=== PATIENT | female | born 1985 | race Caucasian/White ===

== ENCOUNTER 2017-03-22 15:00 | Emergency (ER) | payer OTHER ==
[2017-03-22] MEDS ORDERED: NORMAL SALINE 1000 ML 1,000 ML IV ONE (16:33)
--- NOTE | 2017-03-22 16:34 | ER Document Report ---
ED Medical Screen (RME) - General Chief Complaint: Abdominal Pain Stated Complaint: LOW ABDOMINAL AND BACK PAIN Time Seen by Provider: 03/22/17 16:32 Notes: Patient presents with right upper and lower quadrant abdominal pain. She states the right upper quadrant pain is more severe. This is been going on for approximate 2 days. She also had nausea and vomiting. She states she has had a hysterectomy. She also states she has a history of gastroparesis, biliary dyskinesia, and ulcerative colitis. She also states she has a history of tachycardia and hypotension and usually has medications for this but has not had them for 1 month. She states she has been out of all of her medications for 1 month due to some social issues. She states she does have dysuria. She also has had blood in her urine. TRAVEL OUTSIDE OF THE [place] IN LAST 30 DAYS: No - Related Data Allergies/Adverse Reactions: ibuprofen [Ibuprofen] Allergy (Severe, Verified 06/04/16 14:54) throat swells, itching blotches aspirin Allergy (Verified 03/22/17 15:16) Past Medical History - Past Medical History Cardiac Medical History: Denies: Hx Heart Attack, Hx Hypertension Pulmonary Medical History: Denies: Hx Asthma, Hx Bronchitis, Hx COPD, Hx Pneumonia Neurological Medical History: Reports: Hx Seizures. Denies: Hx Cerebrovascular Accident Renal/ Medical History: Reports: Hx Ovarian Cysts. Denies: Hx Peritoneal Dialysis Malignancy Medical History: Reports: Hx Cervical Cancer GI Medical History: Reports: Hx Gastritis, Hx Hiatal Hernia, Hx Irritable Bowel , Hx Ulcerative Colitis, Hx Colonoscopy, Hx Endoscopy Musculoskeltal Medical History: Reports Hx Arthritis, Reports Hx Fibromyalgia, Reports Hx Musculoskeletal Trauma Psychiatric Medical History: Reports: Hx Anxiety, Hx Bipolar Disorder, Hx Depression Traumatic Medical History: Reports: Hx Fractures Past Surgical History: Reports: Hx Hysterectomy. Denies: Hx Pacemaker - Immunizations Hx Diphtheria, Pertussis, Tetanus Vaccination: Yes Physical Exam - Vital signs Vitals: Temp Pulse Resp BP Pulse Ox 98.6 F 127 H 18 101/66 98 03/22/17 15:14 03/22/17 15:14 03/22/17 15:14 03/22/17 15:14 03/22/17 15:14 Course - Vital Signs Vital signs: Temp Pulse Resp BP Pulse Ox 98.6 F 127 H 18 101/66 98 03/22/17 15:14 03/22/17 15:14 03/22/17 15:14 03/22/17 15:14 03/22/17 15:14
[2017-03-22 17:20] LABS: ABSOLUTE BASOPHILS # (AUTO) 0.1 10^3/uL (0.0-0.2); ABSOLUTE EOSINOPHILS # (AUTO) 0.2 10^3/uL (0.0-0.6); ABSOLUTE LYMPHOCYTES (AUTO) 2.6 10^3/uL (0.5-4.7); ABSOLUTE MONOCYTES (AUTO) 0.7 10^3/uL (0.1-1.4); ABSOLUTE NEUT (AUTO) 5.5 10^3/uL (1.7-8.2); BASOPHILS % (AUTO) 0.9 % (0-2); EOSINOPHILS % (AUTO) 1.8 % (0-6); HEMATOCRIT 44.4 % (36.0-47.0); HEMOGLOBIN 15.1 g/dL (12.0-15.5); HGB HCT DIFFERENCE 0.9; LYMPHOCYTES % (AUTO) 28.6 % (13-45); MEAN CORPUSCULAR VOLUME 94 fl (80-97); RED BLOOD COUNT 4.72 10^6/uL (3.72-5.28); RED CELL DISTRIBUTION WIDTH 12.4 % (11.5-14.0); SEGMENTED NEUTROPHILS % (AUTO) 60.7 % (42-78)
[2017-03-22 17:22] LABS: APPEARANCE,URINE CLOUDY; BILIRUBIN,URINE NEGATIVE (NEGATIVE); GLUCOSE, URINE NEGATIVE (NEGATIVE); KETONES,URINE NEGATIVE (NEGATIVE); LEUKOCYTE ESTERASE,URINE LARGE (NEGATIVE); NITRITE,URINE POSITIVE (NEGATIVE); PROTEIN,URINE 100 mg/dL (NEGATIVE); URINE SPECIFIC GRAVITY 1.018; UROBILINOGEN,URINE NEGATIVE mg/dL (<2.0)
[2017-03-22] MEDS ORDERED: CEFTRIAXONE 1 GM/D5W RTU 1 GM/50 ML RTUPB IV ONE ×2 (17:30→17:39)
[2017-03-22 17:33] LABS: ALANINE AMINOTRANSFERASE 30 U/L (9-52); ALBUMIN 4.3 g/dL (3.5-5.0); ALKALINE PHOSPHATASE 74 U/L (38-126); ANION GAP 15 (5-19); ASPARTATE AMINO TRANSFERASE 18 U/L (14-36); BILIRUBIN,DIRECT 0.4 mg/dL (0.0-0.4); BILIRUBIN,TOTAL 0.5 mg/dL (0.2-1.3); BLOOD UREA NITROGEN 12 mg/dL (7-20); CARBON DIOXIDE 26 mmol/L (22-30); CHLORIDE 100 mmol/L (98-107); CREATININE RESULT 0.74 mg/dL (0.52-1.25); GLUCOSE 80 mg/dL (75-110); LIPASE 44.3 U/L (23-300); POTASSIUM 4.1 mmol/L (3.6-5.0); SODIUM 140.7 mmol/L (137-145); TOTAL PROTEIN 7.6 g/dL (6.3-8.2)
[2017-03-22] MEDS ORDERED: CIPROFLOXACIN HCL 500 MG TABLET PO ONE (17:36)
[2017-03-22] MEDS ORDERED: TRAMADOL HCL 50 MG TABLET PO ONE (17:37)
--- NOTE | 2017-03-22 17:39 | ER Document Report ---
ED General - General Chief Complaint: Abdominal Pain Stated Complaint: LOW ABDOMINAL AND BACK PAIN Time Seen by Provider: 03/22/17 16:32 TRAVEL OUTSIDE OF THE [place] IN LAST 30 DAYS: No - Related Data Allergies/Adverse Reactions: ibuprofen [Ibuprofen] Allergy (Severe, Verified 06/04/16 14:54) throat swells, itching blotches aspirin Allergy (Verified 03/22/17 15:16) Past Medical History - Social History Smoking Status: Current Every Day Smoker Chew tobacco use (# tins/day): No Frequency of alcohol use: Occasional Drug Abuse: Marijuana Family History: Arthritis, CAD, COPD, CVA, DM, Hyperlipidemia, Hypertension, Malignancy, Other - Past Medical History Cardiac Medical History: Denies: Hx Heart Attack, Hx Hypertension Pulmonary Medical History: Denies: Hx Asthma, Hx Bronchitis, Hx COPD, Hx Pneumonia Neurological Medical History: Reports: Hx Seizures. Denies: Hx Cerebrovascular Accident Renal/ Medical History: Reports: Hx Ovarian Cysts. Denies: Hx Peritoneal Dialysis Malignancy Medical History: Reports: Hx Cervical Cancer GI Medical History: Reports: Hx Gastritis, Hx Hiatal Hernia, Hx Irritable Bowel , Hx Ulcerative Colitis, Hx Colonoscopy, Hx Endoscopy Musculoskeltal Medical History: Reports Hx Arthritis, Reports Hx Fibromyalgia, Reports Hx Musculoskeletal Trauma Psychiatric Medical History: Reports: Hx Anxiety, Hx Bipolar Disorder, Hx Depression Traumatic Medical History: Reports: Hx Fractures Past Surgical History: Reports: Hx Hysterectomy. Denies: Hx Pacemaker - Immunizations Hx Diphtheria, Pertussis, Tetanus Vaccination: Yes Physical Exam - Vital signs Vitals: Temp Pulse Resp BP Pulse Ox 98.6 F 127 H 18 101/66 98 03/22/17 15:14 03/22/17 15:14 03/22/17 15:14 03/22/17 15:14 03/22/17 15:14 Course - Vital Signs Vital signs: Temp Pulse Resp BP Pulse Ox 98.6 F 127 H 18 101/66 98 03/22/17 15:14 03/22/17 15:14 03/22/17 15:14 03/22/17 15:14 03/22/17 15:14 - Laboratory Result Diagrams: 03/22/17 17:00 03/22/17 17:00 Laboratory results interpreted by me: 03/22/17 16:48 Urine Protein 100 H Urine Blood LARGE H Urine Nitrite POSITIVE H Ur Leukocyte Esterase LARGE H Discharge - Discharge Clinical Impression: Pyelonephritis Condition: Stable Disposition: HOME, SELF-CARE Instructions: Pyelonephritis ([facility]) Additional Instructions: Follow up with your physician tomorrow for further care or return to the ED IMMEDIATELY if symptoms worsen or new concerns occur. If you cannot afford to follow up with your primary care physician a list of low cost clinics have been provided at the end of your discharge papers as well. Prescriptions: Ciprofloxacin HCl [Cipro 500 mg Tablet] 500 mg PO BID #20 tablet Tramadol HCl 50 mg PO Q8 #14 tablet
[2017-03-22 18:04] VITALS: BP 104/73
== END 2017-03-22 18:04 | disposition home or self-care (01) ==
LOC: ER 15:00
DX: N12 Tubulo-interstitial nephritis, not specified as acute or chronic (principal); R10.30 Lower abdominal pain, unspecified; M54.9 Dorsalgia, unspecified; F17.200 Nicotine dependence, unspecified, uncomplicated
CPT/HCPCS: 99284; 96361; 96365; 36415; 87040; 83690; 85025; 80053; 81001; J7030; J0696

== ENCOUNTER 2017-09-03 06:47 | Emergency (ER) | payer OTHER ==
[2017-09-03] MEDS ORDERED: DIPHENHYDRAMINE HCL 50 MG CAPSULE PO ONE (07:23)
[2017-09-03] MEDS ORDERED: NORMAL SALINE 1000 ML 1,000 ML IV PRN (07:24)
--- NOTE | 2017-09-03 07:27 | ER Document Report ---
ED General - General Chief Complaint: Nausea/Vomiting Stated Complaint: ABDOMINAL PAIN,FEVER Time Seen by Provider: 09/03/17 07:11 Mode of Arrival: Ambulatory Information source: Patient Notes: HPI-31 years old female presents today with 3 day history of fever general body aches and pain, erythematous spotty rash over the torso as well as upper extremity. Having diffuse abdominal discomfort associated with nausea and vomiting. Denies any diarrhea dysuria frequency urgency. Status post hysterectomy. Denies any vaginal discharge. Had sore throat, no cough or difficulty in breathing. Denies any earache. REVIEW OF SYSTEMS: CONSTITUTIONAL : Denies fever, chills, or sweats. Denies recent illness. EENT: Denies eye, ear, throat, or mouth pain or symptoms. Denies nasal or sinus congestion or discharge. Denies throat, tongue, or mouth swelling or difficulty swallowing. CARDIOVASCULAR: Denies chest pain. Denies palpitations or racing or irregular heart beat. Denies ankle edema. RESPIRATORY: Denies cough, cold, or chest congestion. Denies shortness of breath, difficulty breathing, or wheezing. GASTROINTESTINAL: Denies abdominal pain or distention. Denies nausea, vomiting , or diarrhea. Denies blood in vomitus, stools, or per rectum. Denies black, tarry stools. Denies constipation. GENITOURINARY: Denies difficulty urinating, painful urination, burning, frequency, blood in urine, or discharge. FEMALE GENITOURINARY: Denies vaginal bleeding, heavy or abnormal periods, irregular periods. Denies vaginal discharge or odor. MUSCULOSKELETAL: Denies back or neck pain or stiffness. Denies joint pain or swelling. SKIN: Denies rash, lesions or sores. HEMATOLOGIC : Denies easy bruising or bleeding. LYMPHATIC: Denies swollen, enlarged glands. NEUROLOGICAL: Denies confusion or altered mental status. Denies passing out or loss of consciousness. Denies dizziness or lightheadedness. Denies headache. Denies weakness or paralysis or loss of use of either side. Denies problems with gait or speech. Denies sensory loss, numbness, or tingling. Denies seizures. PSYCHIATRIC: Denies anxiety or stress. Denies depression, suicidal ideation, or homicidal ideation. ALL OTHER SYSTEMS REVIEWED AND NEGATIVE. PHYSICAL EXAMINATION: GENERAL: Well-appearing, well-nourished and in no acute distress. HEAD: Atraumatic, normocephalic. EYES: Pupils equal round and reactive to light, extraocular movements intact, conjunctiva are normal. ENT: Nares patent, oropharynx clear without exudates. Moist mucous membranes. NECK: Normal range of motion, supple without lymphadenopathy LUNGS: Breath sounds clear to auscultation bilaterally and equal. No wheezes rales or rhonchi. HEART: Regular rate and rhythm without murmurs ABDOMEN: Soft, diffuse mild tenderness, palpable fecal mass. Normal. No guarding, no rebound. No masses appreciated. Female : deferred Musculoskeletal: Normal range of motion, no pitting or edema. No cyanosis. NEUROLOGICAL: Cranial nerves grossly intact. Normal speech, normal gait. Normal sensory, motor exams PSYCH: Normal mood, normal affect. SKIN: Warm, Dry, normal turgor, noted papular erythematous rash scattered throughout the body, which was blanching on palpation. Dictation was performed using [employer] for [employer] and Android voice recognition software TRAVEL OUTSIDE OF THE [place] IN LAST 30 DAYS: No - Related Data Allergies/Adverse Reactions: ibuprofen [Ibuprofen] Allergy (Severe, Verified 06/04/16 14:54) throat swells, itching blotches aspirin Allergy (Verified 03/22/17 15:16) Past Medical History - Social History Smoking Status: Never Smoker Chew tobacco use (# tins/day): No Frequency of alcohol use: None Drug Abuse: None Family History: Arthritis, CAD, COPD, CVA, DM, Hyperlipidemia, Hypertension, Malignancy, Other Patient has suicidal ideation: No Patient has homicidal ideation: No - Past Medical History Cardiac Medical History: Denies: Hx Heart Attack, Hx Hypertension Pulmonary Medical History: Denies: Hx Asthma, Hx Bronchitis, Hx COPD, Hx Pneumonia Neurological Medical History: Reports: Hx Seizures. Denies: Hx Cerebrovascular Accident Renal/ Medical History: Reports: Hx Ovarian Cysts. Denies: Hx Peritoneal Dialysis Malignancy Medical History: Reports: Hx Cervical Cancer GI Medical History: Reports: Hx Gastritis, Hx Hiatal Hernia, Hx Irritable Bowel , Hx Ulcerative Colitis, Hx Colonoscopy, Hx Endoscopy Musculoskeltal Medical History: Reports Hx Arthritis, Reports Hx Fibromyalgia, Reports Hx Musculoskeletal Trauma Psychiatric Medical History: Reports: Hx Anxiety, Hx Bipolar Disorder, Hx Depression Traumatic Medical History: Reports: Hx Fractures Past Surgical History: Reports: Hx Hysterectomy. Denies: Hx Pacemaker - Immunizations Hx Diphtheria, Pertussis, Tetanus Vaccination: Yes Physical Exam - Vital signs Vitals: Temp Pulse Resp BP Pulse Ox 98.0 F 92 17 126/88 H 98 09/03/17 06:55 09/03/17 06:55 09/03/17 06:55 09/03/17 06:55 09/03/17 06:55 Course - Re-evaluation Re-evalutation: 09/03/17 08:55 Rash improved on Benadryl, Patient is comfortable - Vital Signs Vital signs: Temp Pulse Resp BP Pulse Ox 98.0 F 92 17 126/88 H 98 09/03/17 06:55 09/03/17 06:55 09/03/17 06:55 09/03/17 06:55 09/03/17 06:55 - Laboratory Result Diagrams: 09/03/17 07:30 09/03/17 07:30 Laboratory results interpreted by me: 09/03/17 09/03/17 07:30 07:30 WBC 10.8 H RDW 14.9 H BUN 24 H ALT 108 H Discharge - Discharge Clinical Impression: Rash Constipation Qualifiers: Constipation type: slow transit constipation Qualified Code(s): K59.01 - Slow transit constipation Condition: Fair Disposition: HOME, SELF-CARE Instructions: Constipation ([facility]), Viral Rash ([facility]) Additional Instructions: Call to get the results of Lyme disease as well as Bartlett spotted fever Prescriptions: Lactulose 20 gm PO BID #120 ml Levocetirizine Dihydrochloride [Xyzal] 5 mg PO DAILY #30 tablet
[2017-09-03 08:05] LABS: ABSOLUTE BASOPHILS # (AUTO) 0.1 10^3/uL (0.0-0.2); ABSOLUTE EOSINOPHILS # (AUTO) 0.2 10^3/uL (0.0-0.6); ABSOLUTE LYMPHOCYTES (AUTO) 3.6 10^3/uL (0.5-4.7); ABSOLUTE MONOCYTES (AUTO) 0.6 10^3/uL (0.1-1.4); ABSOLUTE NEUT (AUTO) 6.2 10^3/uL (1.7-8.2); BASOPHILS % (AUTO) 1.1 % (0-2); HEMATOCRIT 39.7 % (36.0-47.0); HEMOGLOBIN 13.4 g/dL (12.0-15.5); LYMPHOCYTES % (AUTO) 33.6 % (13-45); MEAN CORPUSCULAR HEMOGLOBIN 31.6 pg (27.0-33.4); MEAN CORPUSCULAR HGB CONC 33.7 g/dL (32.0-36.0); MEAN CORPUSCULAR VOLUME 94 fl (80-97); MONOCYTES % (AUTO) 5.8 % (3-13); PLATELET COUNT 278 10^3/uL (150-450); RED BLOOD COUNT 4.23 10^6/uL (3.72-5.28); RED CELL DISTRIBUTION WIDTH 14.9 % (11.5-14.0); SEGMENTED NEUTROPHILS % (AUTO) 57.5 % (42-78); TOTAL CELLS COUNTED % (AUTO) 100 %; WHITE BLOOD COUNT 10.8 10^3/uL (4.0-10.5)
--- NOTE | 2017-09-03 08:14 | RADIOLOGY REPORT (SQ) ---
EXAM DESCRIPTION: KUB/ABDOMEN (SINGLE VIEW) COMPLETED DATE/TIME: 09/03/2017 8:07 am REASON FOR STUDY: Abdominal pain COMPARISON: None. NUMBER OF VIEWS: One view. TECHNIQUE: Supine radiographic image of the abdomen acquired. LIMITATIONS: None. FINDINGS: BOWEL GAS PATTERN: Normal bowel gas pattern. No dilated loops. CONSTIPATION: Marked CALCIFICATIONS: No suspicious calcifications. SOFT TISSUES: No gross mass or suggestion of organomegaly. HARDWARE: Left-sided Essure device. BONES: No acute fracture. No worrisome bone lesions. OTHER: No other significant finding. IMPRESSION: NO RADIOGRAPHIC EVIDENCE FOR ACUTE ABDOMINAL DISEASE. Marked constipation. TECHNICAL DOCUMENTATION: JOB ID: [id number] [employer]- All Rights Reserved Reading location - IP/workstation name: [email or web address]
[2017-09-03 08:23] LABS: ALANINE AMINOTRANSFERASE 108 U/L (9-52); ALBUMIN 4.1 g/dL (3.5-5.0); ALKALINE PHOSPHATASE 58 U/L (38-126); ANION GAP 8 (5-19); ASPARTATE AMINO TRANSFERASE 33 U/L (14-36); BILIRUBIN,DIRECT 0.4 mg/dL (0.0-0.4); BILIRUBIN,TOTAL 0.4 mg/dL (0.2-1.3); BLOOD UREA NITROGEN 24 mg/dL (7-20); CALCIUM 9.7 mg/dL (8.4-10.2); CARBON DIOXIDE 27 mmol/L (22-30); CHLORIDE 104 mmol/L (98-107); GLUCOSE 82 mg/dL (75-110); LIPASE 74.1 U/L (23-300); POTASSIUM 4.2 mmol/L (3.6-5.0); SODIUM 138.5 mmol/L (137-145); TOTAL PROTEIN 7.8 g/dL (6.3-8.2)
[2017-09-03 08:27] LABS: C-REACTIVE PROTEIN < 5.0 mg/L (<10.0)
[2017-09-03 08:52] LABS: ERYTHROCYTE SEDIMENTATION RATE 16 mm/hr (0-20)
[2017-09-03 09:22] VITALS: BP 120/82
[2017-09-05 15:23] LABS: LYME DISEASE IGM AB <0.80 index (0.00-0.79)
== END 2017-09-03 09:21 | disposition home or self-care (01) ==
LOC: ER 06:47
DX: K59.01 Slow transit constipation (principal); R21 Rash and other nonspecific skin eruption; R11.2 Nausea with vomiting, unspecified; Z88.6 Allergy status to analgesic agent
CPT/HCPCS: 99284; 96360; 96361; 36415; 87070; 87880; 83690; 85025; 85652; 86140; 80076; 80048; 86618 ×2; 86617 ×2; 74018; J7030

== ENCOUNTER 2017-09-11 08:54 | Emergency (ER) | payer SELFPAY ==
--- NOTE | 2017-09-11 09:34 | ER Document Report ---
ED GI/ - General Chief Complaint: Upper Abdominal Pain Stated Complaint: FLU SYMPTOMS Time Seen by Provider: 09/11/17 09:17 Mode of Arrival: Ambulatory Information source: Patient Notes: 31-year-old female presents to ED for complaint of upper abdominal pain nausea vomiting diarrhea yesterday 4 vomiting today 2 yesterday 6 rash to the chest and abdomen was seen here on 09/03/2017 for pretty much the same thing. TRAVEL OUTSIDE OF THE [place] IN LAST 30 DAYS: No - HPI Patient complains to provider of: Abdominal pain, Diarrhea, Vomiting Onset: Other - Middle of August Timing/Duration: Intermittent, Persistent Quality of pain: Achy, Cramping Severity at maximum: Moderate Severity in ED: Moderate Pain Level: 4 Location: LUQ, RUQ Vaginal bleeding (Compared to normal period): None Menstrual period history: Post-menopausal Associated symptoms: Diarrhea, Nausea, Vomiting, Other - Rash Exacerbated by: Denies Relieved by: Denies Similar symptoms previously: Yes Recently seen / treated by doctor: Yes - Related Data Allergies/Adverse Reactions: ibuprofen [Ibuprofen] Allergy (Severe, Verified 09/11/17 08:55) throat swells, itching blotches aspirin Allergy (Verified 09/11/17 08:55) Past Medical History - General Information source: Patient - Social History Smoking Status: Current Every Day Smoker Cigarette use (# per day): Yes - Pack per day Chew tobacco use (# tins/day): No Smoking Education Provided: Yes - 4 minutes Frequency of alcohol use: None - 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 Drug Abuse: None - 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 Lives with: Friend Family History: Arthritis, CAD, COPD, CVA, DM, Hyperlipidemia, Hypertension, Malignancy, Thyroid Disfunction, Other Patient has suicidal ideation: No Patient has homicidal ideation: No - Past Medical History Cardiac Medical History: Reports: None Pulmonary Medical History: Reports: None EENT Medical History: Reports: None Neurological Medical History: Reports: Hx Seizures Endocrine Medical History: Reports: Other - Hypoglycemia Renal/ Medical History: Reports: Hx Ovarian Cysts Malignancy Medical History: Reports: Hx Cervical Cancer GI Medical History: Reports: Hx Gastritis, Hx Hiatal Hernia, Hx Irritable Bowel , Hx Ulcerative Colitis, Hx Colonoscopy, Hx Endoscopy Musculoskeltal Medical History: Reports Hx Arthritis, Reports Hx Fibromyalgia, Reports Hx Musculoskeletal Trauma Skin Medical History: Reports None Psychiatric Medical History: Reports: Hx Anxiety, Hx Bipolar Disorder, Hx Depression Traumatic Medical History: Reports: Hx Fractures Infectious Medical History: Reports: None Past Surgical History: Reports: Hx Hysterectomy - Immunizations Hx Diphtheria, Pertussis, Tetanus Vaccination: Yes Review of Systems - Review of Systems Constitutional: No symptoms reported EENT: No symptoms reported Cardiovascular: No symptoms reported Respiratory: No symptoms reported Gastrointestinal: Abdominal pain, Diarrhea, Nausea, Vomiting Genitourinary: No symptoms reported Female Genitourinary: No symptoms reported Musculoskeletal: No symptoms reported Skin: Rash - Chest and abdomen rash Hematologic/Lymphatic: No symptoms reported Neurological/Psychological: No symptoms reported -: Yes All other systems reviewed and negative Physical Exam - Vital signs Vitals: Temp Pulse Resp BP Pulse Ox 98.7 F 82 15 108/71 97 09/11/17 09:00 09/11/17 09:00 09/11/17 09:00 09/11/17 09:00 09/11/17 09:00 Interpretation: Normal - General General appearance: Appears well, Alert - HEENT Head: Normocephalic, Atraumatic Eyes: Normal Pupils: PERRL - Respiratory Respiratory status: No respiratory distress Chest status: Nontender Breath sounds: Normal Chest palpation: Normal - Cardiovascular Rhythm: Regular Heart sounds: Normal auscultation Murmur: No - Abdominal Inspection: Normal Distension: No distension. No: Distended, Tympanitic, Fluid wave, Distended bladder Bowel sounds: Normal Tenderness: Tender - upper. No: McBurney's point, Hernandez's sign, Guarding Organomegaly: No organomegaly. No: Hepatomegaly, Splenomegaly, Mass - Back Back: Normal, Nontender - Extremities General upper extremity: Normal inspection, Nontender, Normal color, Normal ROM , Normal temperature General lower extremity: Normal inspection, Nontender, Normal color, Normal ROM , Normal temperature, Normal weight bearing. No: Narciso's sign - Neurological Neuro grossly intact: Yes Cognition: Normal Orientation: AAOx4 Sherley Coma Scale Eye Opening: Spontaneous Sherley Coma Scale Verbal: Oriented Sherley Coma Scale Motor: Obeys Commands [place] Coma Scale Total: 15 Speech: Normal Motor strength normal: LUE, RUE, LLE, RLE Sensory: Normal - Psychological Associated symptoms: Normal affect, Normal mood - Skin Skin Temperature: Warm Skin Moisture: Dry Skin Color: Normal Course - Re-evaluation Re-evalutation: 09/11/17 21:32 Labs and ultrasound discussed with patient there is no acute changes noted. Patient was instructed to follow-up with her primary doctor and then with some stores naval. Patient also had a rash to her upper abdomen and chest. She was placed on steroids for this rash instructed to use Benadryl and Pepcid. Patient was discharged home to follow-up with her primary doctor. - Vital Signs Vital signs: Temp Pulse Resp BP Pulse Ox 98.7 F 85 16 114/68 98 09/11/17 11:46 09/11/17 11:46 09/11/17 11:46 09/11/17 11:46 09/11/17 11:46 - Laboratory Result Diagrams: 09/11/17 09:44 09/11/17 09:44 Laboratory results interpreted by me: 09/11/17 09/11/17 09/11/17 09:44 09:44 09:50 RDW 14.8 H Creatinine 0.51 L Ur Leukocyte Esterase LARGE H - Diagnostic Test Radiology reviewed: Image reviewed, Reports reviewed Discharge - Discharge Clinical Impression: Urticaria Abdominal pain Qualifiers: Abdominal location: upper abdomen, unspecified Qualified Code(s): R10.10 - Upper abdominal pain, unspecified Condition: Stable Disposition: HOME, SELF-CARE Additional Instructions: ABDOMINAL PAIN: There are many causes of abdominal pain. Pain can mean a serious problem requiring surgery (such as appendicitis). It can also be an innocent problem that goes away on its own (such as a viral infection). Often, time must pass to determine the cause of pain. The physician does not feel that hospitalization is necessary, at present. Things may change within the next 24 hours. Call the doctor or come back for re- examination if any problems occur, such as: (1) Pain that becomes more severe, steady, or becomes concentrated in one specific area. Also, pain that is more severe with movement or coughing. (2) Vomiting that persists or becomes more frequent. (3) Blood in the vomitus, urine, or bowel movements. Blood in the stool may have a tarry or black appearance. (4) Shaking chills or fever greater than 100 degrees F. (5) The abdomen becomes more distended or swollen. (6) Bowel movements cease. (7) Failure to improve as expected. ACUTE ALLERGIC REACTION: Your symptoms are due to an allergic reaction. Allergy can cause hives, swelling of the hands, feet, and face, hoarseness, and difficulty swallowing or breathing. It may be due to exposure to medication, animal dander, foods, infection, or insect bites. Medication is a common cause, even when prior use of this same medication caused no problems. Acute treatment may include adrenalin and antihistamines. Usually, the specific allergic agent can't be identified unless repeated episodes occur. Home treatment includes the following: (1) Stop any suspicious medications. This will be discussed with you. (2) Oral antihistamines for the next four to five days. Example, diphenhydramine (Benadryl) every four hours. (3) You may also use cimetidine (Tagamet), ranitidine (Zantac), or famotidine ( Pepcid) every four hours if diphenhydramine is not controlling itching and hives. (4) Avoid aspirin until the hives completely disappear. (5) Avoid hot baths or showers until the hives are completely gone. Call the doctor if faintness, difficulty swallowing, tightness in the chest , or wheezing occurs. STEROID MEDICATION: You have been given a medicine of the cortisone/steroid class. This medication is used to control inflammation or allergy. It is usually only given for a short period of time, until the acute process subsides. There are usually no side effects from short-term use of cortisone-like medications. Some persons feel an increased sense of well-being and are not sleepy at bedtime. Long-term use of cortisone medications is best avoided, unless required for a severe condition. If your condition does not remit, or relapses after the course of corticosteroid medication, you should consult your physician. ACID-SUPPRESSING MEDICATION: You have a prescription for medicine which reduces the stomach's secretion of acid. Examples include Zantac, Tagament, and Pepcid. These drugs are often used to allow healing of ulcers or esophagitis. They may be needed to prevent recurrence of ulcers in some patients, or to prevent damage from acid reflux in the esophagus. Take all medication as prescribed, even after the pain is gone. Regular antacids may be added as needed if you have symptoms while taking this medicine. These medications sometimes are prescribed for allergic reactions because they have anti-histaminic effects and relieve the rash and itching of the reaction. There are usually no side effects from this medication. But, in rare cases and particularly in the elderly, serious problems can occur. Contact your doctor if there is fever, rash, hallucinations, confusion, or unusual bruising. Contact your doctor at once if you develop lightheadedness, black or bloody stool, or bloody vomitus. ANTIHISTAMINES: An antihistamine has been given and/or prescribed to control your symptoms. Antihistamines are used for many reasons, including itching, watering eyes, runny nose, allergic swelling, hives, and insect stings. Antihistamines may cause drowsiness, especially with the first dose. Do not operate machinery or drive while under the effects of the medication. Other common side effects include dry mouth and eyes. In older persons, antihistamines can occasionally cause urinary retention, constipation, and trouble focusing the eyes. Do not combine the medication with alcohol, or with any other medication without talking to your doctor. USE OF DIPHENHYDRAMINE: The use of diphenhydramine (Benadryl) has been recommended to control allergic symptoms. The 25 mg strength is available over- the-counter, as well as the elixir. This antihistamine is used for many symptoms. It's useful for itching, watering eyes and nose, allergic swelling, hives, and insect stings. The medication can be repeated four times daily. Age Elixir (12.5 mg/tsp) 25 mg pill 2-3 yr 1/2 tsp 4-8 yr 1 tsp 9-14 yr 2 tsp one tab adult 1-2 tabs Antihistamines may cause drowsiness, especially with the first dose. Do not operate machinery or drive while under the effects of the medication. Do not combine the medication with alcohol, or with any other medication without talking to your doctor. ANTINAUSEA MEDICATION: You have been given a medication to suppress nausea and vomiting. This type of medication can be given as a shot, pill, or suppository. It will usually last for many hours. Pills and shots usually last six to eight hours, suppositories last about 12 hours. For the typical illness, only one or two doses of the medication may be necessary. Mild lightheadedness may occur. This type of medicine can cause drowsiness. Do not drive or operate dangerous machinery while under its influence. Do not mix with alcohol. See your doctor at once if you have muscle spasms or tightness, or uncontrollable motions (particularly of the neck, mouth, or jaw). Persistent vomiting or severe lightheadedness should also be evaluated by the physician. FOLLOW-UP CARE: If you have been referred to a physician for follow-up care, call the physician s office for an appointment as you were instructed or within the next two days. If you experience worsening or a significant change in your symptoms, notify the physician immediately or return to the Emergency Department at any time for re-evaluation. Prescriptions: Famotidine [Pepcid 20 mg Tablet] 20 mg PO BID #12 tablet Ondansetron [Zofran Odt 4 mg Tablet] 1 tab PO Q6H #15 tab.rapdis Prednisone [Deltasone 20 mg Tablet] 3 tab PO DAILY 5 Days tablet
[2017-09-11 09:57] LABS: ABSOLUTE BASOPHILS # (AUTO) 0.1 10^3/uL (0.0-0.2); ABSOLUTE EOSINOPHILS # (AUTO) 0.2 10^3/uL (0.0-0.6); ABSOLUTE LYMPHOCYTES (AUTO) 2.9 10^3/uL (0.5-4.7); ABSOLUTE MONOCYTES (AUTO) 0.5 10^3/uL (0.1-1.4); ABSOLUTE NEUT (AUTO) 5.8 10^3/uL (1.7-8.2); BASOPHILS % (AUTO) 1.2 % (0-2); EOSINOPHILS % (AUTO) 2.1 % (0-6); HEMATOCRIT 40.5 % (36.0-47.0); HEMOGLOBIN 14.2 g/dL (12.0-15.5); LYMPHOCYTES % (AUTO) 30.8 % (13-45); MEAN CORPUSCULAR HEMOGLOBIN 32.4 pg (27.0-33.4); MEAN CORPUSCULAR VOLUME 92 fl (80-97); MONOCYTES % (AUTO) 5.6 % (3-13); PLATELET COUNT 277 10^3/uL (150-450); RED BLOOD COUNT 4.38 10^6/uL (3.72-5.28); RED CELL DISTRIBUTION WIDTH 14.8 % (11.5-14.0); SEGMENTED NEUTROPHILS % (AUTO) 60.3 % (42-78); TOTAL CELLS COUNTED % (AUTO) 100 %; WHITE BLOOD COUNT 9.6 10^3/uL (4.0-10.5)
[2017-09-11 10:10] LABS: APPEARANCE,URINE SLIGHTLY-CLOUDY; BILIRUBIN,URINE NEGATIVE (NEGATIVE); COLOR,URINE STRAW; GLUCOSE, URINE NEGATIVE (NEGATIVE); KETONES,URINE NEGATIVE (NEGATIVE); PROTEIN,URINE NEGATIVE (NEGATIVE); URINE SPECIFIC GRAVITY 1.015; UROBILINOGEN,URINE NEGATIVE mg/dL (<2.0)
[2017-09-11 10:11] LABS: LEUKOCYTE ESTERASE,URINE LARGE (NEGATIVE); NITRITE,URINE NEGATIVE (NEGATIVE)
[2017-09-11 10:16] LABS: URINE AMPHETAMINES SCREEN NEGATIVE; URINE BARBITURATES SCREEN NEGATIVE; URINE BENZODIAZEPINES SCREEN NEGATIVE; URINE COCAINE SCREEN NEGATIVE; URINE MARIJUANA (THC) SCREEN NEGATIVE; URINE METHADONE SCREEN NEGATIVE; URINE PHENCYCLIDINE SCREEN NEGATIVE
[2017-09-11 10:21] LABS: ALANINE AMINOTRANSFERASE 34 U/L (9-52); ALBUMIN 4.1 g/dL (3.5-5.0); ALKALINE PHOSPHATASE 50 U/L (38-126); ANION GAP 11 (5-19); ASPARTATE AMINO TRANSFERASE 21 U/L (14-36); BILIRUBIN,DIRECT 0.2 mg/dL (0.0-0.4); BILIRUBIN,TOTAL 0.3 mg/dL (0.2-1.3); BLOOD UREA NITROGEN 15 mg/dL (7-20); CALCIUM 9.8 mg/dL (8.4-10.2); CARBON DIOXIDE 24 mmol/L (22-30); CHLORIDE 102 mmol/L (98-107); GLUCOSE 96 mg/dL (75-110); LIPASE 55.6 U/L (23-300); POTASSIUM 4.5 mmol/L (3.6-5.0); SODIUM 137.2 mmol/L (137-145); TOTAL PROTEIN 6.8 g/dL (6.3-8.2)
--- NOTE | 2017-09-11 11:22 | RADIOLOGY REPORT (SQ) ---
EXAM DESCRIPTION: U/S ABDOMEN LIMITED W/O DOP COMPLETED DATE/TIME: 09/11/2017 11:10 am REASON FOR STUDY: upper abdominal pain COMPARISON: 03/09/2013 TECHNIQUE: Dynamic and static grayscale images acquired of the abdomen and recorded on PACS. Biancao jaclyn selected color Doppler and spectral images recorded. LIMITATIONS: None. FINDINGS: PANCREAS: No masses. Visualized pancreatic duct normal caliber. LIVER: The liver measures 16.5 cm in length, normal size. No masses. Echotexture normal. LIVER VASCULATURE: Normal directional flow of the main portal vein and hepatic veins. GALLBLADDER: No stones. The gallbladder wall measures 2.0 mm, normal wall thickness. No pericholecys tic fluid. Ultrasound -detected "Hernandez's sign" negative. ULTRASOUND-DETECTED HERNANDEZ'S SIGN: Negative. INTRAHEPATIC DUCTS AND COMMON DUCT: CBD measures 4.0 mm, normal diameter. The intrahepatic ducts nor mal caliber. No filling defects. INFERIOR VENA CAVA: Normal flow. AORTA: No aneurysm. RIGHT KIDNEY: The right kidney measures 11.6 cm in length, normal size. Normal echogenicity. No teodora d or suspicious masses. No hydronephrosis. No calcifications. PERITONEAL AND RIGHT PLEURAL SPACE: No ascites or effusions. OTHER: No other significant findings. IMPRESSION: 1 No significant interval changes since the prior examination dated 03/07/2013. 2 Examination is unremarkable sonographically. TECHNICAL DOCUMENTATION: JOB ID: [id number]- All Rights Reserved Reading location - IP/workstation name: [email or web address]
[2017-09-11] MEDS ORDERED: PREDNISONE 20 MG TABLET PO ONE (11:33)
[2017-09-11] MEDS ORDERED: FAMOTIDINE 20 MG TABLET PO ONE (11:33)
[2017-09-11 11:51] VITALS: BP 114/68
== END 2017-09-11 11:52 | disposition home or self-care (01) ==
LOC: ER 08:54
DX: R10.12 Left upper quadrant pain (principal); R10.11 Right upper quadrant pain; L50.9 Urticaria, unspecified; R11.2 Nausea with vomiting, unspecified; R19.7 Diarrhea, unspecified; F17.210 Nicotine dependence, cigarettes, uncomplicated; Z71.6 Tobacco abuse counseling; Z85.41 Personal history of malignant neoplasm of cervix uteri; Z88.6 Allergy status to analgesic agent
CPT/HCPCS: 99406; 99284; 36415; 87086; 84702; 83690; 85025; 80053; 81001; 80307; 76705; J7512

== ENCOUNTER 2017-10-13 17:44 | Emergency (ER) | payer SELFPAY ==
--- NOTE | 2017-10-13 18:30 | ER Document Report ---
ED Medical Screen (RME) - General Chief Complaint: Abscess Stated Complaint: ABSCESS/VAGINAL AREA Time Seen by Provider: 10/13/17 18:26 Notes: Patient reports she thinks she is developing a Bartholin's cyst abscess. She has had these before. I have greeted and performed a rapid initial assessment of this patient. A comprehensive ED assessment and evaluation of the patient, analysis of test results and completion of the medical decision making process will be conducted by additional ED providers. TRAVEL OUTSIDE OF THE [place] IN LAST 30 DAYS: No - Related Data Allergies/Adverse Reactions: ibuprofen [Ibuprofen] Allergy (Severe, Verified 09/11/17 08:55) throat swells, itching blotches aspirin Allergy (Verified 09/11/17 08:55) Past Medical History - Social History Chew tobacco use (# tins/day): No Frequency of alcohol use: Occasional Drug Abuse: None - Past Medical History Cardiac Medical History: Denies: Hx Heart Attack, Hx Hypertension Pulmonary Medical History: Denies: Hx Asthma, Hx Bronchitis, Hx COPD, Hx Pneumonia Neurological Medical History: Reports: Hx Seizures. Denies: Hx Cerebrovascular Accident Renal/ Medical History: Reports: Hx Ovarian Cysts. Denies: Hx Peritoneal Dialysis Malignancy Medical History: Reports: Hx Cervical Cancer GI Medical History: Reports: Hx Gastritis, Hx Hiatal Hernia, Hx Irritable Bowel , Hx Ulcerative Colitis, Hx Colonoscopy, Hx Endoscopy Musculoskeltal Medical History: Reports Hx Arthritis, Reports Hx Fibromyalgia, Reports Hx Musculoskeletal Trauma Psychiatric Medical History: Reports: Hx Anxiety, Hx Bipolar Disorder - anxiety and depression, Hx Depression Traumatic Medical History: Reports: Hx Fractures Past Surgical History: Reports: Hx Hysterectomy. Denies: Hx Pacemaker - Immunizations Hx Diphtheria, Pertussis, Tetanus Vaccination: Yes History of Influenza Vaccine for 03/2017 - 08/2017 Season: No Physical Exam - Vital signs Vitals: Temp Pulse Resp BP Pulse Ox 97.8 F 95 18 111/69 97 10/13/17 17:59 10/13/17 17:59 10/13/17 17:59 10/13/17 17:59 10/13/17 17:59 Course - Vital Signs Vital signs: Temp Pulse Resp BP Pulse Ox 97.8 F 95 18 111/69 97 10/13/17 17:59 10/13/17 17:59 10/13/17 17:59 10/13/17 17:59 10/13/17 17:59
--- NOTE | 2017-10-13 19:41 | ER Document Report ---
ED General - General Chief Complaint: Abscess Stated Complaint: ABSCESS/VAGINAL AREA Time Seen by Provider: 10/13/17 18:26 Mode of Arrival: Ambulatory Information source: Patient Notes: 31-year-old female with history of hypertension, anxiety, fibromyalgia and recurrent Bartholin's cysts presents with complaint of left labial and buttocks pain that has been ongoing for approximately 3 days. Patient also reports a subjective fever at home. TRAVEL OUTSIDE OF THE [place] IN LAST 30 DAYS: No - HPI Onset: Other Onset/Duration: Gradual Quality of pain: Stabbing, Throbbing Associated symptoms: Fever Exacerbated by: Movement Similar symptoms previously: Yes Recently seen / treated by doctor: No - Related Data Allergies/Adverse Reactions: ibuprofen [Ibuprofen] Allergy (Severe, Verified 09/11/17 08:55) throat swells, itching blotches aspirin Allergy (Verified 09/11/17 08:55) Past Medical History - General Information source: Patient - Social History Smoking Status: Current Every Day Smoker Chew tobacco use (# tins/day): No Smoking Education Provided: Yes Frequency of alcohol use: Occasional Drug Abuse: None Lives with: Friend Family History: Arthritis, CAD, COPD, CVA, DM, Hyperlipidemia, Hypertension, Malignancy, Other Patient has suicidal ideation: No Patient has homicidal ideation: No - Past Medical History Cardiac Medical History: Denies: Hx Heart Attack, Hx Hypertension Pulmonary Medical History: Denies: Hx Asthma, Hx Bronchitis, Hx COPD, Hx Pneumonia Neurological Medical History: Reports: Hx Seizures. Denies: Hx Cerebrovascular Accident Renal/ Medical History: Reports: Hx Ovarian Cysts. Denies: Hx Peritoneal Dialysis Malignancy Medical History: Reports: Hx Cervical Cancer GI Medical History: Reports: Hx Gastritis, Hx Hiatal Hernia, Hx Irritable Bowel , Hx Ulcerative Colitis, Hx Colonoscopy, Hx Endoscopy Musculoskeltal Medical History: Reports Hx Arthritis, Reports Hx Fibromyalgia, Reports Hx Musculoskeletal Trauma Psychiatric Medical History: Reports: Hx Anxiety, Hx Bipolar Disorder - anxiety and depression, Hx Depression Traumatic Medical History: Reports: Hx Fractures Past Surgical History: Reports: Hx Hysterectomy. Denies: Hx Pacemaker - Immunizations Hx Diphtheria, Pertussis, Tetanus Vaccination: Yes Review of Systems - Review of Systems Notes: Patient denies chills, nausea, vomiting, headache, ear pain, sore throat, cough , chest pain, shortness of breath, abdominal pain, back pain, dysuria, hematuria , rash, SI/HI. Physical Exam - Vital signs Vitals: Temp Pulse Resp BP Pulse Ox 97.8 F 95 18 111/69 97 10/13/17 17:59 10/13/17 17:59 10/13/17 17:59 10/13/17 17:59 10/13/17 17:59 - Notes Notes: PHYSICAL EXAMINATION: GENERAL: Well-appearing, well-nourished and in no acute distress. HEAD: Atraumatic, normocephalic. EYES: Pupils equal round and reactive to light, extraocular movements intact, conjunctiva are normal. ENT: Nares patent, oropharynx clear without exudates. Moist mucous membranes. NECK: Normal range of motion, supple without lymphadenopathy LUNGS: Breath sounds clear to auscultation bilaterally and equal. No wheezes rales or rhonchi. HEART: Regular rate and rhythm without murmurs ABDOMEN: Soft, nontender, nondistended abdomen. No guarding, no rebound. No masses appreciated. Female : No external lesions. There is an area of tenderness, induration adjacent to the left labia and buttocks. There is no erythema or fluctuance. Musculoskeletal: Normal range of motion, no pitting or edema. No cyanosis. NEUROLOGICAL: Cranial nerves grossly intact. Normal speech, normal gait. Normal sensory, motor exams PSYCH: Normal mood, normal affect. SKIN: Warm, Dry, normal turgor, no rashes or lesions noted. Course - Re-evaluation Re-evalutation: Laboratory 10/13/17 10/13/17 10/13/17 20:12 20:12 20:12 WBC 15.1 H RBC 4.39 Hgb 14.1 Hct 41.8 MCV 95 MCH 32.1 MCHC 33.7 RDW 13.2 Plt Count 249 Seg Neutrophils % 65.2 Lymphocytes % 25.9 Monocytes % 5.6 Eosinophils % 2.7 Basophils % 0.6 Absolute Neutrophils 9.8 H Absolute Lymphocytes 3.9 Absolute Monocytes 0.9 Absolute Eosinophils 0.4 Absolute Basophils 0.1 Sodium 143.0 Potassium 4.4 Chloride 104 Carbon Dioxide 29 Anion Gap 10 BUN 9 Creatinine 0.59 Est GFR ( Amer) > 60 Est GFR (Non-Af Amer) > 60 Glucose 95 Calcium 9.4 Total Bilirubin 0.3 Direct Bilirubin 0.3 Neonat Total Bilirubin Not Reportable Neonat Direct Bilirubin Not Reportable Neonat Indirect Bili Not Reportable AST 45 H ALT 79 H Alkaline Phosphatase 52 Total Protein 7.2 Albumin 3.8 Urine Color YELLOW Urine Appearance CLEAR Urine pH 5.0 Ur Specific [place] 1.008 Urine Protein NEGATIVE Urine Glucose (UA) NEGATIVE Urine Ketones NEGATIVE Urine Blood NEGATIVE Urine Nitrite NEGATIVE Urine Bilirubin NEGATIVE Urine Urobilinogen NEGATIVE Ur Leukocyte Esterase MODERATE H Urine WBC (Auto) 1 Urine RBC (Auto) 1 Squamous Epi Cells Auto 1 Urine Mucus (Auto) RARE Urine Ascorbic Acid NEGATIVE Urine HCG, Qual NEGATIVE Pelvis CT 10/13/17 19:42 IMPRESSION: 2.6 cm well-circumscribed left perineal abscess. 31-year-old female with history of hypertension, anxiety, fibromyalgia and recurrent Bartholin's cysts presents with complaint of left labial and buttocks pain that has been ongoing for approximately 3 days. Patient also reports a subjective fever at home 10/13/17 19:51 Bedside ultrasound was performed to assess for abscess. There is a large anechoic area with no definitive border adjacent to the labia and on the buttocks. 10/13/17 21:51 I did discuss findings of the CAT scan with the patient who says that this is a recurrent problem. She states that every time this happened she has required I& D in the operating room. She has undergone marsupialization for this in the past.. I did consult with surgery who agrees to see the patient. 10/13/17 22:03 Surgery did evaluate the patient and believes this to be a Bartholin's cyst. Because of the patient's recurrence, prior complications, and the need for OR drainage they do not recommend I&D at this time. 10/13/17 23:[address] Munoz from [facility] who agrees to evaluate the patient in the emergency department. 10/14/17 02:31 Patient was evaluated by Dr. Munoz who agrees that this is a Bartholin's cyst. I&D was performed by Dr. Munoz and a Estrada catheter was inserted. Patient was prescribed Bactrim and [place] upon discharge. - Vital Signs Vital signs: Temp Pulse Resp BP Pulse Ox 98 F 101 H 20 106/74 98 10/13/17 23:45 10/13/17 23:45 10/13/17 23:45 10/13/17 22:49 10/13/17 23:45 - Laboratory Result Diagrams: 10/13/17 20:12 10/13/17 20:12 Laboratory results interpreted by me: 10/13/17 10/13/17 10/13/17 20:12 20:12 20:12 WBC 15.1 H Absolute Neutrophils 9.8 H AST 45 H ALT 79 H Ur Leukocyte Esterase MODERATE H - Diagnostic Test Radiology reviewed: Image reviewed, Reports reviewed Procedures - Ultrasound/Bedside Ultrasound/Bedside Time completed: 19:40 - Soft tissue ultrasound was performed to evaluate for abscess. There is a large anechoic area adjacent to left labia and buttock without a definitive border. Discharge - Discharge Clinical Impression: Bartholin's gland cyst Leukocytosis Qualifiers: Leukocytosis type: unspecified Qualified Code(s): D72.829 - Elevated white blood cell count, unspecified Condition: Good Disposition: HOME, SELF-CARE Instructions: Abscess ([facility]), Bartholin Gland Cyst or Abscess ([facility]), Trimethoprim-Sulfa ([facility]) Additional Instructions: Follow up with your physician tomorrow for further care or return to the ED IMMEDIATELY if symptoms worsen or new concerns occur. If you cannot afford to follow up with your primary care physician a list of low cost clinics have been provided at the end of your discharge papers as well. Prescriptions: Hydrocodone/Acetaminophen [Vicodin 5-300 mg Tablet] 1 each PO Q6H PRN #15 tablet PRN Reason: Sulfamethoxazole/Trimethoprim [Bactrim Ds Tablet] 1 each PO BID 10 Days #20 tablet Referrals: CHADWICK LIEBERMAN MD [ACTIVE STAFF] - Follow up as needed
[2017-10-13 20:37] LABS: APPEARANCE,URINE CLEAR; BILIRUBIN,URINE NEGATIVE (NEGATIVE); COLOR,URINE YELLOW; GLUCOSE, URINE NEGATIVE (NEGATIVE); KETONES,URINE NEGATIVE (NEGATIVE); LEUKOCYTE ESTERASE,URINE MODERATE (NEGATIVE); NITRITE,URINE NEGATIVE (NEGATIVE); PROTEIN,URINE NEGATIVE (NEGATIVE); URINE SPECIFIC GRAVITY 1.008; UROBILINOGEN,URINE NEGATIVE mg/dL (<2.0)
[2017-10-13 20:39] LABS: ABSOLUTE BASOPHILS # (AUTO) 0.1 10^3/uL (0.0-0.2); ABSOLUTE EOSINOPHILS # (AUTO) 0.4 10^3/uL (0.0-0.6); ABSOLUTE LYMPHOCYTES (AUTO) 3.9 10^3/uL (0.5-4.7); ABSOLUTE MONOCYTES (AUTO) 0.9 10^3/uL (0.1-1.4); ABSOLUTE NEUT (AUTO) 9.8 10^3/uL (1.7-8.2); BASOPHILS % (AUTO) 0.6 % (0-2); EOSINOPHILS % (AUTO) 2.7 % (0-6); HEMATOCRIT 41.8 % (36.0-47.0); HEMOGLOBIN 14.1 g/dL (12.0-15.5); LYMPHOCYTES % (AUTO) 25.9 % (13-45); MEAN CORPUSCULAR HEMOGLOBIN 32.1 pg (27.0-33.4); MEAN CORPUSCULAR HGB CONC 33.7 g/dL (32.0-36.0); MEAN CORPUSCULAR VOLUME 95 fl (80-97); MONOCYTES % (AUTO) 5.6 % (3-13); PLATELET COUNT 249 10^3/uL (150-450); RED BLOOD COUNT 4.39 10^6/uL (3.72-5.28); RED CELL DISTRIBUTION WIDTH 13.2 % (11.5-14.0); SEGMENTED NEUTROPHILS % (AUTO) 65.2 % (42-78); TOTAL CELLS COUNTED % (AUTO) 100 %; WHITE BLOOD COUNT 15.1 10^3/uL (4.0-10.5)
[2017-10-13 20:48] LABS: ALANINE AMINOTRANSFERASE 79 U/L (9-52); ALBUMIN 3.8 g/dL (3.5-5.0); ALKALINE PHOSPHATASE 52 U/L (38-126); ANION GAP 10 (5-19); ASPARTATE AMINO TRANSFERASE 45 U/L (14-36); BILIRUBIN,DIRECT 0.3 mg/dL (0.0-0.4); BILIRUBIN,TOTAL 0.3 mg/dL (0.2-1.3); BLOOD UREA NITROGEN 9 mg/dL (7-20); CALCIUM 9.4 mg/dL (8.4-10.2); CARBON DIOXIDE 29 mmol/L (22-30); CHLORIDE 104 mmol/L (98-107); GLUCOSE 95 mg/dL (75-110); POTASSIUM 4.4 mmol/L (3.6-5.0); TOTAL PROTEIN 7.2 g/dL (6.3-8.2)
[2017-10-13] MEDS ORDERED: CLINDAMYCIN 600 MG/D5W RTU 600 MG/50 ML RTUPB IV ONE (21:40)
--- NOTE | 2017-10-13 21:40 | RADIOLOGY REPORT (SQ) ---
EXAM DESCRIPTION: CT PELVIS WITH COMPLETED DATE/TIME: 10/13/2017 9:29 pm REASON FOR STUDY: abscess of left perineum assess for extension COMPARISON: None. TECHNIQUE: CT scan of the pelvis performed with intravenous and oral contrast using helical scanning technique with dynamic intravenous contrast injection. Images reviewed with lung, soft tissue, and b one windows. Reconstructed coronal and sagittal MPR images reviewed. Delayed images for evaluation of the urinary system also acquired. All images stored on PACS. All CT scanners at this facility use dose modulation, iterative reconstruction, and/or weight based d osing when appropriate to reduce radiation dose to as low as reasonably achievable (ALARA). [facility]: Dose Right [facility]: CareDose [facility]: Dose Right [facility]: Teradose 4D [facility]: [employer] CONTRAST TYPE AND DOSE: contrast/concentration: Isovue 370.00 mg/ml; Total Contrast Delivered: 67.0 ml; Total Saline Delivered: 66.0 ml RENAL FUNCTION: None required. The patient is less than 50 years old. RADIATION DOSE: CT Rad equipment meets quality standard of care and radiation dose reduction techniq ues were employed. CTDIvol: 5.5 - 7.2 mGy. DLP: 466 mGy-cm. . LIMITATIONS: None. FINDINGS: AORTA AND VESSELS: No aneurysm. No dissection. Renal arteries, SMA, celiac without stenosi s. RETROPERITONEUM: No retroperitoneal adenopathy, hemorrhage or masses. BOWEL AND PERITONEAL CAVITY: No obstruction. No visualized masses. No free fluid. No inflammatory ch anges or thickening of bowel wall. PELVIS: 2 x 2.6 cm smooth oval mass low density in the left perineum. Compatible with the clinically diagnosis perineal abscess. Normal bladder. No free fluid. ABDOMINAL WALL: No masses. No hernias. BONES: No significant or acute findings. OTHER: No other significant finding. IMPRESSION: 2.6 cm well-circumscribed left perineal abscess. TECHNICAL DOCUMENTATION: JOB ID: [id number] Quality ID # [id number]: Final reports with documentation of one or more dose reduction techniques (e.g., Au tomated exposure control, adjustment of the mA and/or kV according to patient size, use of iterative reconstruction technique) 2010 [employer]- All Rights Reserved Reading location - IP/workstation name: [email or web address]
[2017-10-13] MEDS ORDERED: MORPHINE SULFATE 10 MG/ML INJ IV ONE (21:41)
[2017-10-13] MEDS ORDERED: ONDANSETRON HCL INJ/PF 4 MG/2 ML SDV IV ONE (21:41)
[2017-10-13] MEDS ORDERED: CLINDAMYCIN HCL 150 MG CAPSULE PO ONE (22:02)
[2017-10-13] MEDS ORDERED: SULFAMETHOXAZOLE/TRIMETHOPRIM 800-160 MG TABLET PO ONE (22:04)
[2017-10-13 22:50] VITALS: BP 106/74
[2017-10-13] MEDS ORDERED: LIDOCAINE 1% INJ-PF (10 MG/ML) 30 ML SDV ONE (23:19)
[2017-10-13] MEDS ORDERED: LIDOCAINE 1% INJ (10 MG/ML) 10 ML MDV INJ ONE (23:21)
--- NOTE | 2017-10-14 00:10 | PDOC CONSULTATION ---
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 She denies f/c/n/v. She also reports history of hystorectomy in past due to "cervical cancer". Past Medical History Gynecological Infection: No Cardiac Medical History: Denies: Myocardial Infarction, Hypertension Pulmonary Medical History: Denies: Asthma, Bronchitis, Chronic Obstructive Pulmonary Disease (COPD), Pneumonia Neurological Medical History: Reports: Seizures Malignancy Medical History: Reports: Cervical Cancer GI Medical History: Reports: Hiatal Hernia, Ulcerative Colitis Musculoskeltal Medical History: Reports: Arthritis, Fibromyalgia Psychiatric Medical History: Reports: Bipolar Disorder - anxiety and depression , Depression Social History Information Source: Patient Lives with: Friend Smoking Status: Current Every Day Smoker Frequency of Alcohol Use: Social Hx Recreational Drug Use: Yes Drugs: Marijuana Hx Prescription Drug Abuse: No Family History Family History: Arthritis, CAD, COPD, CVA, DM, Hyperlipidemia, Hypertension, Malignancy, Other Parental Family History Reviewed: No Children Family History Reviewed: NA Sibling(s) Family History Reviewed.: NA Medication/Allergy Home Medications: Famotidine [Pepcid 20 mg Tablet] 20 mg PO BID #12 tablet 09/11/17 Ondansetron [Zofran Odt 4 mg Tablet] 1 tab PO Q6H #15 tab.rapdis 09/11/17 Prednisone [Deltasone 20 mg Tablet] 3 tab PO DAILY 5 Days tablet 09/11/17 Hydrocodone/Acetaminophen [Vicodin 5-300 mg Tablet] 1 each PO Q6H PRN #15 tablet 10/13/17 Sulfamethoxazole/Trimethoprim [Bactrim Ds Tablet] 1 each PO BID 10 Days #20 tablet 10/13/17 Allergies/Adverse Reactions: ibuprofen [Ibuprofen] Allergy (Severe, Verified 09/11/17 08:55) throat swells, itching blotches aspirin Allergy (Verified 09/11/17 08:55) Review of Systems Constitutional: PRESENT: as per HPI Respiratory: ABSENT: cough, hemoptysis Genitourinary: ABSENT: dysuria, hematuria Physical Exam - Physical Exam Vital Signs: Temp Pulse Resp BP Pulse Ox 98.3 F 114 H 18 106/74 98 10/13/17 22:49 10/13/17 22:49 10/13/17 17:59 10/13/17 22:49 10/13/17 22:49 Intake & Output 10/12/17 10/13/17 10/14/17 06:59 06:59 06:59 Weight 66.7 kg General appearance: PRESENT: no acute distress, well-developed, well-nourished Neurological exam: PRESENT: alert, awake, oriented to person, oriented to place , oriented to time, oriented to situation, CN II-XII grossly intact. ABSENT: motor sensory deficit Psychiatric exam: PRESENT: appropriate affect, normal mood. ABSENT: homicidal ideation, suicidal ideation Skin exam: PRESENT: dry, intact, warm. ABSENT: cyanosis, rash - Gynecological Exam Labia: other - enlarged bilaterally with right greater than left - discolorations on inside right labia (pt reports benign and bx done in the past) Urethra: normal Introitus: other - left 2-3cm bartholins gland cyst, lidocaine injected and 11 blade opened with 10ml purulent drainage. Word catheter placed in the usual fashion. Result Laboratory Results: 10/13/17 20:12 10/13/17 20:12 10/13/17 10/13/17 10/13/17 20:12 20:12 20:12 WBC 15.1 H RBC 4.39 Hgb 14.1 Hct 41.8 MCV 95 MCH 32.1 MCHC 33.7 RDW 13.2 Plt Count 249 Seg Neutrophils % 65.2 Lymphocytes % 25.9 Monocytes % 5.6 Eosinophils % 2.7 Basophils % 0.6 Absolute Neutrophils 9.8 H Absolute Lymphocytes 3.9 Absolute Monocytes 0.9 Absolute Eosinophils 0.4 Absolute Basophils 0.1 Sodium 143.0 Potassium 4.4 Chloride 104 Carbon Dioxide 29 Anion Gap 10 BUN 9 Creatinine 0.59 Est GFR ( Amer) > 60 Est GFR (Non-Af Amer) > 60 Glucose 95 Calcium 9.4 Total Bilirubin 0.3 AST 45 H ALT 79 H Alkaline Phosphatase 52 Total Protein 7.2 Albumin 3.8 Urine Color YELLOW Urine Appearance CLEAR Urine pH 5.0 Ur Specific [place] 1.008 Urine Protein NEGATIVE Urine Glucose (UA) NEGATIVE Urine Ketones NEGATIVE Urine Blood NEGATIVE Urine Nitrite NEGATIVE Ur Leukocyte Esterase MODERATE H Urine WBC (Auto) 1 Urine RBC (Auto) 1 Impressions: Pelvis CT 10/13/17 19:42 IMPRESSION: 2.6 cm well-circumscribed left perineal abscess. Assessment & Plan - Diagnosis (1) Bartholin's gland cyst Is this a current diagnosis for this admission?: Yes Plan: Bartholins gland cyst on left easily drained. Word catheter placed. Bactrim for 10 days and pain rx given by Dr. Ruelas. Wound care reviewed with pt. She will f/u either here in ER or in office if reaccumulation. - Time Time Spent: 30 to 50 Minutes Critical Time spent with patient: 25-34 minutes Smoking Cessation Education: 3 to 10 minutes Medications reviewed and adjusted accordingly: Yes Anticipated discharge: Home Within: within 24 hours - Inpatient Certification Based on my medical assessment, after consideration of the patient's comorbidities, presenting symptoms, or acuity I expect that the services needed warrant INPATIENT care.: No I certify that my determination is in accordance with my understanding of Medicare's requirements for reasonable and necessary INPATIENT services [42 CFR 412.3e].: No - Plan Summary Plan Summary: discharge to home
== END 2017-10-13 23:45 | disposition home or self-care (01) ==
LOC: ER 17:44
DX: N75.0 Cyst of Bartholin's gland (principal); L02.215 Cutaneous abscess of perineum; D72.829 Elevated white blood cell count, unspecified; F17.200 Nicotine dependence, unspecified, uncomplicated; Z88.6 Allergy status to analgesic agent; Z85.41 Personal history of malignant neoplasm of cervix uteri
CPT/HCPCS: 99284; 96375; 96365; 36415; 85025; 81025; 80053; 81001; 72193; 56420; J2270; J2405

== ENCOUNTER 2017-11-19 15:44 | Emergency (ER) | payer OTHER ==
[2017-11-19] MEDS ORDERED: LIDOCAINE 1% INJ-PF (10 MG/ML) 30 ML SDV INJ ONE (16:01)
[2017-11-19] MEDS ORDERED: CEPHALEXIN 500 MG CAPSULE PO ONE (16:02)
[2017-11-19] MEDS ORDERED: OXYCODONE-ACETAMINOPHEN 5-325 MG TABLET PO ONE (16:02)
--- NOTE | 2017-11-19 16:07 | ER Document Report ---
HPI - HPI Pain Level: 4 Context: Patient is a 31-year-old female presents emergency part with a chief complaint of Bartholin's cyst. Patient states that she has had a history over the course of her life with previous IV procedures requiring marsupialization of the site. States that the left happens more predominantly than the right. She states that this current inflammation and pain and tenderness is been over the past 4 days with associated odor and minimal drainage. She otherwise denies any other pelvic pain, vaginal discharge, pyuria hematuria or urinary frequency, fever or chills. Previous hysterectomy for cervical cancer - REPRODUCTIVE Reproductive: DENIES: : Past Medical History - Social History Smoking Status: Current Every Day Smoker Family History: Arthritis, CAD, COPD, CVA, DM, Hyperlipidemia, Hypertension, Malignancy, Other - Past Medical History Cardiac Medical History: Denies: Hx Heart Attack, Hx Hypertension Pulmonary Medical History: Denies: Hx Asthma, Hx Bronchitis, Hx COPD, Hx Pneumonia Neurological Medical History: Reports: Hx Seizures. Denies: Hx Cerebrovascular Accident Renal/ Medical History: Reports: Hx Ovarian Cysts. Denies: Hx Peritoneal Dialysis Malignancy Medical History: Reports: Hx Cervical Cancer GI Medical History: Reports: Hx Gastritis, Hx Hiatal Hernia, Hx Irritable Bowel , Hx Ulcerative Colitis, Hx Colonoscopy, Hx Endoscopy Musculoskeltal Medical History: Reports Hx Arthritis, Reports Hx Fibromyalgia, Reports Hx Musculoskeletal Trauma Psychiatric Medical History: Reports: Hx Anxiety, Hx Bipolar Disorder - anxiety and depression, Hx Depression Traumatic Medical History: Reports: Hx Fractures Past Surgical History: Reports: Hx Hysterectomy. Denies: Hx Pacemaker - Immunizations Hx Diphtheria, Pertussis, Tetanus Vaccination: Yes Vertical Provider Document - CONSTITUTIONAL Agree With Documented VS: Yes Notes: PHYSICAL EXAM GENERAL: Alert, interacts well. LUNGS: Clear to auscultation bilaterally, no wheezes, rales, or rhonchi. No respiratory distress. HEART: Regular rate and rhythm. No murmurs, gallops, or rubs. ABDOMEN: Soft, nondistended, nontender. No guarding, rebound, or rigidity.. Bowel sounds present in all 4 quadrants. FEMALE : Patient has evidence of swelling, tenderness and induration underneath the subcutaneous tissue within the left labia, standing into the soft tissue adjacent to her vagina with visible purulent drainage within her vaginal canal consistent with Bartholin's cyst and abscess on the left side NEUROLOGICAL: Alert and oriented x4. Normal speech. PSYCH: Normal affect, normal mood. SKIN: Warm, dry, normal turgor. No rashes or lesions noted. - INFECTION CONTROL TRAVEL OUTSIDE OF THE [place] IN LAST 30 DAYS: No Course - Re-evaluation Re-evalutation: 11/19/17 16:32 Due to extensive involvement with regarding the soft tissue and previous procedures requiring OB evaluation, I consulted with Dr. Ellis who evaluated the patient on October 13. States that she will come down and I&D the Bartholin abscess and place a port catheter and to have her follow-up in the office to set up a outpatient Bartholin's cyst resection. Patient to be given IV antibiotics. 11/19/17 18:49 I&D performed by Dr. Ellis. Word catheter in place. Patient to follow-up in [facility] on Monday. Patient supplied with appropriate contact information and we have her updated contact information. Patient's contact information also given to case management. - Vital Signs Vital signs: Temp Pulse Resp BP Pulse Ox 98.7 F 112 H 18 115/72 97 11/19/17 15:53 11/19/17 15:53 11/19/17 15:53 11/19/17 15:53 11/19/17 15:53 Discharge - Discharge Clinical Impression: Bartholin cyst Condition: Good Disposition: HOME, SELF-CARE Instructions: Bartholin Gland Cyst or Abscess ([facility]), Post Incision and Drainage Additional Instructions: Please follow-up with Dr. Ellis's office at [facility] on November 21Monday If your symptoms return please be sure to come to the emergency department or [facility] as soon as possible. Until you have this area removed surgically you are likely to have recurrence of this infection. Please stop smoking because it increases your likelihood of these infections returning. Prescriptions: Ondansetron HCl [Zofran 4 mg Tablet] 1 - 2 tab PO Q4H PRN #20 tablet PRN Reason: Oxycodone HCl/Acetaminophen [Percocet 5-325 mg Tablet] 1 tab PO ASDIR PRN #15 tab PRN Reason: Sulfamethoxazole/Trimethoprim [Bactrim Ds Tablet] 1 each PO BID 14 Days tablet Referrals: SANDRA ELLIS MD [ACTIVE STAFF] - 11/21/17
[2017-11-19] MEDS ORDERED: CLINDAMYCIN 600 MG/D5W RTU 600 MG/50 ML RTUPB IV ONE (16:31)
--- NOTE | 2017-11-19 16:36 | PDOC CONSULTATION ---
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 Since she has no insurance has not followed up in the office. Reviewed with patient previously to try to get medicaid so that she could have surgical management (with removal of bartholins gland) in the OR when not infected. She denies f/c/n/v. She also reports history of hysterectomy in past due to "cervical cancer". Cessation of smoking would also improve the likelihood of this bartholins gland abscess not recurring. Past Medical History Gynecological Infection: No Cardiac Medical History: Denies: Myocardial Infarction, Hypertension Pulmonary Medical History: Denies: Asthma, Bronchitis, Chronic Obstructive Pulmonary Disease (COPD), Pneumonia Neurological Medical History: Reports: Seizures Malignancy Medical History: Reports: Cervical Cancer GI Medical History: Reports: Hiatal Hernia, Ulcerative Colitis Musculoskeltal Medical History: Reports: Arthritis, Fibromyalgia Psychiatric Medical History: Reports: Bipolar Disorder - anxiety and depression , Depression Social History Information Source: Patient Smoking Status: Current Every Day Smoker Frequency of Alcohol Use: Social Hx Recreational Drug Use: Yes Drugs: Marijuana Hx Prescription Drug Abuse: No Family History Family History: Arthritis, CAD, COPD, CVA, DM, Hyperlipidemia, Hypertension, Malignancy, Other Parental Family History Reviewed: No Children Family History Reviewed: NA Sibling(s) Family History Reviewed.: NA Medication/Allergy Home Medications: Famotidine [Pepcid 20 mg Tablet] 20 mg PO BID #12 tablet 09/11/17 Ondansetron [Zofran Odt 4 mg Tablet] 1 tab PO Q6H #15 tab.rapdis 09/11/17 Prednisone [Deltasone 20 mg Tablet] 3 tab PO DAILY 5 Days tablet 09/11/17 Hydrocodone/Acetaminophen [Vicodin 5-300 mg Tablet] 1 each PO Q6H PRN #15 tablet 10/13/17 Sulfamethoxazole/Trimethoprim [Bactrim Ds Tablet] 1 each PO BID 10 Days #20 tablet 10/13/17 Ondansetron HCl [Zofran 4 mg Tablet] 1 - 2 tab PO Q4H PRN #20 tablet 11/19/17 Oxycodone HCl/Acetaminophen [Percocet 5-325 mg Tablet] 1 tab PO ASDIR PRN #15 tab 11/19/17 Sulfamethoxazole/Trimethoprim [Bactrim Ds Tablet] 1 each PO BID 14 Days tablet 11/19/17 Allergies/Adverse Reactions: ibuprofen [Ibuprofen] Allergy (Severe, Verified 09/11/17 08:55) throat swells, itching blotches aspirin Allergy (Verified 09/11/17 08:55) Physical Exam - Physical Exam Vital Signs: Temp Pulse Resp BP Pulse Ox 98.7 F 112 H 18 115/72 97 11/19/17 15:53 11/19/17 15:53 11/19/17 15:53 11/19/17 15:53 11/19/17 15:53 Intake & Output 11/18/17 11/19/17 11/20/17 06:59 06:59 06:59 Weight 63.2 kg General appearance: PRESENT: no acute distress, well-developed, well-nourished Head exam: PRESENT: atraumatic, normocephalic Respiratory exam: PRESENT: symmetrical, unlabored Rectal exam: PRESENT: deferred Gentrourinary exam: PRESENT: other - bartholins on the left is larger than previously and some erythema noted on left external vulvar area and perineum. No crepitus. Neurological exam: PRESENT: alert, awake, oriented to person, oriented to place , oriented to time, oriented to situation, CN II-XII grossly intact. ABSENT: motor sensory deficit Psychiatric exam: PRESENT: appropriate affect, normal mood. ABSENT: homicidal ideation, suicidal ideation Assessment & Plan - Diagnosis (1) Bartholin cyst Is this a current diagnosis for this admission?: Yes Plan: Left bartholins gland abscess noted - Drained with approx 30cc of purulent foul smelling material drained. Very thick cyst wall noted. Reviewed with patient again need for excision. She was asked to f/u in office on Monday with me for re-eval of abscess. No crepitus on exam. IV clinda given in ER. would recommend extended course of Bactrim DS BID for 14 days. Pt also advised re: smoking cessation. Pt tolerated the procedure well. 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
[2017-11-19] MEDS ORDERED: ONDANSETRON 4 MG TAB.RAPDIS PO ONE (18:49)
[2017-11-19 19:03] VITALS: BP 131/85
== END 2017-11-19 19:05 | disposition home or self-care (01) ==
LOC: ER 15:44
DX: N75.0 Cyst of Bartholin's gland (principal); N75.1 Abscess of Bartholin's gland; F17.200 Nicotine dependence, unspecified, uncomplicated; Z85.41 Personal history of malignant neoplasm of cervix uteri
CPT/HCPCS: 99284; 96365; 56420; S0119; J3490

== ENCOUNTER 2017-11-22 13:53 | Emergency (ER) | payer OTHER ==
--- NOTE | 2017-11-22 14:38 | ER Document Report ---
ED GI/ - General Chief Complaint: Vaginal Pain Stated Complaint: VAGINAL PAIN Time Seen by Provider: 11/22/17 14:30 Notes: Patient is a 31-year-old female with previous hysterectomy who presents to the emergency department after an I&D of her Bartholin's cyst on November 19 with a complaint of repeat pain. Patient states that she was seen here on November [address] Ellis had an incision and drainage of her Bartholin's cyst. She states that the Word catheter fell out that same evening. She states that the swelling has improved but she is still having some pain and pelvic cramping. She denies any hematuria, frequency but she admits to urgency and pyuria with stinging of the vaginal wall. She states that her main issue coming in today is that her pain is still present and she was not able to afford to follow-up with the [facility] office due to co-pay being too high. She otherwise denies any fevers or chills, nausea vomiting constipation or diarrhea. TRAVEL OUTSIDE OF THE [place] IN LAST 30 DAYS: No - Related Data Allergies/Adverse Reactions: ibuprofen [Ibuprofen] Allergy (Severe, Verified 11/22/17 13:54) throat swells, itching blotches aspirin Allergy (Verified 11/22/17 13:54) Past Medical History - Social History Smoking Status: Current Every Day Smoker Family History: Arthritis, CAD, COPD, CVA, DM, Hyperlipidemia, Hypertension, Malignancy, Other - Past Medical History Cardiac Medical History: Denies: Hx Heart Attack, Hx Hypertension Pulmonary Medical History: Denies: Hx Asthma, Hx Bronchitis, Hx COPD, Hx Pneumonia Neurological Medical History: Reports: Hx Seizures. Denies: Hx Cerebrovascular Accident Renal/ Medical History: Reports: Hx Ovarian Cysts. Denies: Hx Peritoneal Dialysis Malignancy Medical History: Reports: Hx Cervical Cancer GI Medical History: Reports: Hx Gastritis, Hx Hiatal Hernia, Hx Irritable Bowel , Hx Ulcerative Colitis, Hx Colonoscopy, Hx Endoscopy Musculoskeltal Medical History: Reports Hx Arthritis, Reports Hx Fibromyalgia, Reports Hx Musculoskeletal Trauma Psychiatric Medical History: Reports: Hx Anxiety, Hx Bipolar Disorder - anxiety and depression, Hx Depression Traumatic Medical History: Reports: Hx Fractures Past Surgical History: Reports: Hx Hysterectomy. Denies: Hx Pacemaker - Immunizations Hx Diphtheria, Pertussis, Tetanus Vaccination: Yes Review of Systems - Review of Systems Constitutional: No symptoms reported Cardiovascular: No symptoms reported Respiratory: No symptoms reported Gastrointestinal: See HPI Genitourinary: See HPI Female Genitourinary: See HPI Musculoskeletal: No symptoms reported -: Yes All other systems reviewed and negative Physical Exam - Vital signs Vitals: Temp Pulse Resp BP Pulse Ox 98.2 F 88 20 109/66 99 11/22/17 14:00 11/22/17 14:00 11/22/17 14:00 11/22/17 14:00 11/22/17 14:00 - Notes Notes: PHYSICAL EXAM GENERAL: Alert, interacts well. LUNGS: Clear to auscultation bilaterally, no wheezes, rales, or rhonchi. No respiratory distress. HEART: Regular rate and rhythm. No murmurs, gallops, or rubs. ABDOMEN: Soft, nondistended, nontender. No guarding, rebound, or rigidity.. Bowel sounds present in all 4 quadrants. FEMALE : Normal external exam. No evidence of lesions, lacerations, bruising or vesicles. Patient still with palpable cyst without any overlying soft tissue induration, erythema of the left vulva that is significantly smaller measuring approximately 2-3 cm in diameter which is significantly improved from previous evaluation 3 days ago there is evidence of a still patent laceration within the vaginal wall on the left side from previous I&D without active drainage NEUROLOGICAL: Alert and oriented x4. Normal speech. PSYCH: Normal affect, normal mood. SKIN: Warm, dry, normal turgor. No rashes or lesions noted. Course - Re-evaluation Re-evalutation: 11/22/17 16:18 I did review the case with Dr. Ellis who evaluated the patient on November 19 to discuss with her difficulties following up in the office and Dr. Ellis was able to call her office and set up an agreement for payment plan for the patient. Patient has an established appointment at 2:30 PM on Monday. Patient also spoke with our geriatric case manager Braden Ruiz regarding financial assistance. Clinically on physical exam patient is improving after incision and drainage and was completed on the third. Did give her another dose of IV antibiotics with instruction to follow-up with [facility] as scheduled. She is agreeable with this plan and will have her continue her home antibiotics. Otherwise her stable vital signs are stable without concerns for developing sepsis or failure for outpatient p.o. treatment. - Vital Signs Vital signs: Temp Pulse Resp BP Pulse Ox 98.4 F 67 16 117/74 96 11/22/17 17:09 11/22/17 17:09 11/22/17 17:09 11/22/17 17:09 11/22/17 17:09 - Laboratory Laboratory results interpreted by me: 11/22/17 15:20 Urine Blood SMALL H Discharge - Discharge Clinical Impression: Bartholin gland cyst Condition: Good Disposition: HOME, SELF-CARE Instructions: Bartholin Gland Cyst or Abscess (OM) Additional Instructions: Please keep your appointment on Monday at 230 [facility]. Prescriptions: Lidocaine/Hydrocortisone AC [Lidocaine-Hc 3-1% Cream] 7 gm RC BID #1 cream.appl Oxycodone HCl/Acetaminophen [Percocet 5-325 mg Tablet] 1 - 2 tab PO Q4H PRN #15 tablet PRN Reason: Referrals: SANDRA ELLIS MD [ACTIVE STAFF] - 11/24/17 2:30 pm
[2017-11-22] MEDS ORDERED: LIDOCAINE 2% JELLY 5 ML TUBE TOP ONE (15:02)
[2017-11-22] MEDS ORDERED: CLINDAMYCIN 600 MG/D5W RTU 600 MG/50 ML RTUPB IV ONE (15:02)
[2017-11-22] MEDS ORDERED: OXYCODONE-ACETAMINOPHEN 5-325 MG TABLET PO ONE (15:06)
[2017-11-22 16:28] LABS: APPEARANCE,URINE CLEAR; BILIRUBIN,URINE NEGATIVE (NEGATIVE); COLOR,URINE STRAW; GLUCOSE, URINE NEGATIVE (NEGATIVE); KETONES,URINE NEGATIVE (NEGATIVE); LEUKOCYTE ESTERASE,URINE NEGATIVE (NEGATIVE); NITRITE,URINE NEGATIVE (NEGATIVE); PROTEIN,URINE NEGATIVE (NEGATIVE); URINE SPECIFIC GRAVITY 1.003; UROBILINOGEN,URINE NEGATIVE mg/dL (<2.0)
[2017-11-22 17:12] VITALS: BP 117/74
== END 2017-11-22 17:12 | disposition home or self-care (01) ==
LOC: ER 13:53
DX: N75.0 Cyst of Bartholin's gland (principal); Z98.890 Other specified postprocedural states; N39.0 Urinary tract infection, site not specified; R39.15 Urgency of urination; R10.2 Pelvic and perineal pain; F17.200 Nicotine dependence, unspecified, uncomplicated; Z88.6 Allergy status to analgesic agent
CPT/HCPCS: 81001; 99282

== ENCOUNTER 2017-12-20 23:30 | Emergency (ER) | payer OTHER ==
--- NOTE | 2017-12-21 00:59 | ER Document Report ---
ED Medical Screen (RME) - General Chief Complaint: Abdominal Pain Stated Complaint: ABDOMINAL PAIN Time Seen by Provider: 12/21/17 00:56 Mode of Arrival: Ambulatory Information source: Patient Notes: 32-year-old female presents to ED for complaint of abdominal pain with belching bloating and diarrhea. She states she suffers from colitis and gastritis and has had lot of stools today. She states that she went this afternoon and the stool was very loose and she looked in the toilet and it was very bloody. She states she took Tums and Imodium with no relief from her belching and her diarrhea. She states she has had a very minimal amount of urine today and is only voided 4 times today. She does have active but not hyperactive bowel sounds. Abdomen is soft. Blood, urine, and stools have been ordered. I have greeted and performed a rapid initial assessment of this patient. A comprehensive ED assessment and evaluation of the patient, analysis of test results and completion of medical decision making process will be conducted by an additional ED providers. TRAVEL OUTSIDE OF THE [place] IN LAST 30 DAYS: No - Related Data Allergies/Adverse Reactions: ibuprofen [Ibuprofen] Allergy (Severe, Verified 11/22/17 13:54) throat swells, itching blotches aspirin Allergy (Verified 11/22/17 13:54) Past Medical History - Past Medical History Cardiac Medical History: Denies: Hx Heart Attack, Hx Hypertension Pulmonary Medical History: Denies: Hx Asthma, Hx Bronchitis, Hx COPD, Hx Pneumonia Neurological Medical History: Reports: Hx Seizures. Denies: Hx Cerebrovascular Accident Renal/ Medical History: Reports: Hx Ovarian Cysts. Denies: Hx Peritoneal Dialysis Malignancy Medical History: Reports: Hx Cervical Cancer GI Medical History: Reports: Hx Gastritis, Hx Hiatal Hernia, Hx Irritable Bowel , Hx Ulcerative Colitis, Hx Colonoscopy, Hx Endoscopy Musculoskeltal Medical History: Reports Hx Arthritis, Reports Hx Fibromyalgia, Reports Hx Musculoskeletal Trauma Psychiatric Medical History: Reports: Hx Anxiety, Hx Bipolar Disorder - anxiety and depression, Hx Depression Traumatic Medical History: Reports: Hx Fractures Past Surgical History: Reports: Hx Hysterectomy. Denies: Hx Pacemaker - Immunizations Hx Diphtheria, Pertussis, Tetanus Vaccination: Yes History of Influenza Vaccine for 03/2017 - 08/2017 Season: No Physical Exam - Vital signs Vitals: Temp Pulse Resp BP Pulse Ox 97.9 F 74 16 109/80 97 12/20/17 23:53 12/20/17 23:53 12/20/17 23:53 12/20/17 23:53 12/20/17 23:53 Course - Vital Signs Vital signs: Temp Pulse Resp BP Pulse Ox 97.9 F 74 16 109/80 97 12/20/17 23:53 12/20/17 23:53 12/20/17 23:53 12/20/17 23:53 12/20/17 23:53
[2017-12-21 02:24] LABS: APPEARANCE,URINE SLIGHTLY-CLOUDY; BILIRUBIN,URINE NEGATIVE (NEGATIVE); COLOR,URINE AMBER; GLUCOSE, URINE NEGATIVE (NEGATIVE); KETONES,URINE TRACE mg/dL (NEGATIVE); LEUKOCYTE ESTERASE,URINE NEGATIVE (NEGATIVE); NITRITE,URINE NEGATIVE (NEGATIVE); PROTEIN,URINE NEGATIVE (NEGATIVE); URINE SPECIFIC GRAVITY 1.033
[2017-12-21 02:52] LABS: ABSOLUTE EOSINOPHILS # (AUTO) 0.3 10^3/uL (0.0-0.6); ABSOLUTE LYMPHOCYTES (AUTO) 4.3 10^3/uL (0.5-4.7); ABSOLUTE MONOCYTES (AUTO) 0.5 10^3/uL (0.1-1.4); ABSOLUTE NEUT (AUTO) 5.2 10^3/uL (1.7-8.2); BASOPHILS % (AUTO) 0.4 % (0-2); EOSINOPHILS % (AUTO) 2.8 % (0-6); HEMATOCRIT 42.8 % (36.0-47.0); HEMOGLOBIN 14.6 g/dL (12.0-15.5); LYMPHOCYTES % (AUTO) 41.4 % (13-45); MEAN CORPUSCULAR HEMOGLOBIN 31.7 pg (27.0-33.4); MEAN CORPUSCULAR VOLUME 93 fl (80-97); MONOCYTES % (AUTO) 5.2 % (3-13); PLATELET COUNT 277 10^3/uL (150-450); RED BLOOD COUNT 4.59 10^6/uL (3.72-5.28); RED CELL DISTRIBUTION WIDTH 13.5 % (11.5-14.0); SEGMENTED NEUTROPHILS % (AUTO) 50.2 % (42-78); TOTAL CELLS COUNTED % (AUTO) 100 %; WHITE BLOOD COUNT 10.4 10^3/uL (4.0-10.5)
[2017-12-21 03:03] LABS: ALANINE AMINOTRANSFERASE 64 U/L (9-52); ALBUMIN 4.3 g/dL (3.5-5.0); ALKALINE PHOSPHATASE 54 U/L (38-126); ANION GAP 14 (5-19); ASPARTATE AMINO TRANSFERASE 36 U/L (14-36); BILIRUBIN,DIRECT 0.4 mg/dL (0.0-0.4); BILIRUBIN,TOTAL 0.6 mg/dL (0.2-1.3); BLOOD UREA NITROGEN 10 mg/dL (7-20); CALCIUM 9.7 mg/dL (8.4-10.2); CARBON DIOXIDE 25 mmol/L (22-30); CHLORIDE 105 mmol/L (98-107); GLUCOSE 84 mg/dL (75-110); LIPASE 74.3 U/L (23-300); POTASSIUM 4.3 mmol/L (3.6-5.0); TOTAL PROTEIN 7.7 g/dL (6.3-8.2)
[2017-12-21] MEDS ORDERED: HYDROCODONE/ACETAMINOPHEN 5-325 MG TABLET PO ONE (03:12)
--- NOTE | 2017-12-21 03:14 | ER Document Report ---
ED General - General Chief Complaint: Abdominal Pain Stated Complaint: ABDOMINAL PAIN Time Seen by Provider: 12/21/17 00:56 Mode of Arrival: Ambulatory Information source: Patient Notes: Patient is a 32-year-old female who presents with chief complaint of abdominal pain and burning. Patient reports that the abdominal pain is diffuse, with burning to her epigastric area. Patient reports that this is been going on for several days. Patient has not had any vomiting. Patient does report that she has had bowel movements the patient describes sometimes as bloody. Patient reports multiple GI issues for which she is followed by Dr. Villanueva to include hiatal hernia, colitis, gastroparesis, GERD. Patient denies any fevers. TRAVEL OUTSIDE OF THE [place] IN LAST 30 DAYS: No - Related Data Allergies/Adverse Reactions: ibuprofen [Ibuprofen] Allergy (Severe, Verified 11/22/17 13:54) throat swells, itching blotches aspirin Allergy (Verified 11/22/17 13:54) Past Medical History - General Information source: Patient - Social History Smoking Status: Current Every Day Smoker Chew tobacco use (# tins/day): No Frequency of alcohol use: Rare Drug Abuse: Marijuana Lives with: Family Family History: Arthritis, CAD, COPD, CVA, DM, Hyperlipidemia, Hypertension, Malignancy, Other Patient has suicidal ideation: No Patient has homicidal ideation: No - Past Medical History Cardiac Medical History: Denies: Hx Heart Attack, Hx Hypertension Pulmonary Medical History: Denies: Hx Asthma, Hx Bronchitis, Hx COPD, Hx Pneumonia Neurological Medical History: Reports: Hx Seizures. Denies: Hx Cerebrovascular Accident Renal/ Medical History: Reports: Hx Ovarian Cysts. Denies: Hx Peritoneal Dialysis Malignancy Medical History: Reports: Hx Cervical Cancer GI Medical History: Reports: Hx Gastritis, Hx Hiatal Hernia, Hx Irritable Bowel , Hx Ulcerative Colitis, Hx Colonoscopy, Hx Endoscopy Musculoskeletal Medical History: Reports Hx Arthritis, Reports Hx Fibromyalgia, Reports Hx Musculoskeletal Trauma Psychiatric Medical History: Reports: Hx Anxiety, Hx Bipolar Disorder - anxiety and depression, Hx Depression Traumatic Medical History: Reports: Hx Fractures Past Surgical History: Reports: Hx Hysterectomy. Denies: Hx Pacemaker - Immunizations Hx Diphtheria, Pertussis, Tetanus Vaccination: Yes Review of Systems - Review of Systems Constitutional: No symptoms reported EENT: No symptoms reported Cardiovascular: No symptoms reported Respiratory: No symptoms reported Gastrointestinal: See HPI Genitourinary: No symptoms reported Female Genitourinary: No symptoms reported Musculoskeletal: No symptoms reported Skin: No symptoms reported Hematologic/Lymphatic: No symptoms reported Neurological/Psychological: No symptoms reported Physical Exam - Vital signs Vitals: Temp Pulse Resp BP Pulse Ox 97.9 F 74 16 109/80 97 12/20/17 23:53 12/20/17 23:53 12/20/17 23:53 12/20/17 23:53 12/20/17 23:53 - Notes Notes: PHYSICAL EXAMINATION: GENERAL: Well-appearing, well-nourished and in no acute distress. HEAD: Atraumatic, normocephalic. EYES: Pupils equal round and reactive to light, extraocular movements intact, conjunctiva are normal. ENT: Nares patent, oropharynx clear without exudates. Moist mucous membranes. NECK: Normal range of motion, supple without lymphadenopathy LUNGS: Breath sounds clear to auscultation bilaterally and equal. No wheezes rales or rhonchi. HEART: Regular rate and rhythm without murmurs ABDOMEN: Soft, nondistended abdomen. Tenderness to palpation over the epigastric area where patient reports that it holland with palpation. No guarding , no rebound. No masses appreciated. Female : No CVA tenderness. Musculoskeletal: Normal range of motion, no pitting or edema. No cyanosis. NEUROLOGICAL: Cranial nerves grossly intact. Normal speech, normal gait. Normal sensory, motor exams PSYCH: Normal mood, normal affect. SKIN: Warm, Dry, normal turgor, no rashes or lesions noted. Course - Re-evaluation Re-evalutation: 32-year-old well appearing female patient with long history of GI issues complaining of abdominal pain and epigastric burning for 3 days. Patient reports that she has a history of colitis, gastroparesis and GERD. Patient reports that her main complaint is burning in the epigastric area and in her throat. Patient reports she has not taken her omeprazole the past 5 days. All laboratory studies to include CBC, comprehensive metabolic panel and lipase are unremarkable. Urinalysis does not show any signs of infection. Discussed with patient that this is likely gastritis with an exacerbation of her GERD she is not taking her acid reflux medications several days. Will place patient on Carafate and Pepcid and have her follow-up with her GI doctor early next week. Patient is agreeable to this plan. - Vital Signs Vital signs: Temp Pulse Resp BP Pulse Ox 97.7 F 60 18 98/67 L 98 12/21/17 05:16 12/21/17 05:16 12/21/17 05:16 12/21/17 05:16 12/21/17 05:16 - Laboratory Result Diagrams: 12/21/17 02:21 12/21/17 02:21 Laboratory results interpreted by me: 12/21/17 12/21/17 01:55 02:21 ALT 64 H Urine Ketones TRACE H Urine Urobilinogen 2.0 H Discharge - Discharge Clinical Impression: Abdominal pain Qualifiers: Abdominal location: epigastric Qualified Code(s): R10.13 - Epigastric pain Condition: Stable Disposition: HOME, SELF-CARE Additional Instructions: Abdominal Pain There are many causes of abdominal pain. Pain can mean a serious problem requiring surgery (such as appendicitis). It can also be an innocent problem that goes away on its own (such as a viral infection). Often, time must pass to determine the cause of pain. The physician does not feel that hospitalization is necessary, at present. Things may change within the next 24 hours. Call the doctor or come back for re- examination if any problems occur, such as: (1) Pain that becomes more severe, steady, or becomes concentrated in one specific area. Also, pain that is more severe with movement or coughing. (2) Vomiting that persists or becomes more frequent. (3) Blood in the vomitus, urine, or bowel movements. Blood in the stool may have a tarry or black appearance. (4) Shaking chills or fever greater than 100 degrees F. (5) The abdomen becomes more distended or swollen. (6) Bowel movements cease. (7) Failure to improve as expected. Your workup today was completely normal. Your blood and urine reveals no concerning abnormalities. Please take medications as prescribed. Please follow -up with your primary care provider for further workup of your chronic abdominal pain. Return to the emergency department if you develop worsening abdominal pain that is accompanied by fever, vomiting or any other symptom that is concerning to you. Prescriptions: Famotidine [Pepcid 40 mg Tablet] 40 mg PO BID #40 tablet Sucralfate [Carafate 1 gm Tablet] 1 gm PO ACHS #120 tablet
[2017-12-21] MEDS ORDERED: SUCRALFATE 1 GM TABLET PO ONE (04:32)
[2017-12-21] MEDS ORDERED: FAMOTIDINE 20 MG TABLET PO ONE (04:32)
[2017-12-21 05:33] VITALS: BP 98/67
== END 2017-12-21 05:45 | disposition home or self-care (01) ==
LOC: ER 23:30
DX: R10.9 Unspecified abdominal pain (principal); F17.200 Nicotine dependence, unspecified, uncomplicated; Z88.6 Allergy status to analgesic agent; Z90.710 Acquired absence of both cervix and uterus
CPT/HCPCS: 36415; 80053; 81001; 83690; 84703; 85025; 99284

== ENCOUNTER 2018-02-07 18:06 | Emergency (ER) | payer OTHER ==
[2018-02-07 18:27] VITALS: BP 116/72
--- NOTE | 2018-02-07 18:42 | ER Document Report ---
HPI - HPI Patient complains to provider of: right hand pain Onset: Yesterday Onset/Duration: Sudden, Persistent Quality of pain: Achy Pain Level: 3 Context: Presented emergency department with complaints of right hand pain. 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 Reports she was painting yesterday and the palm of her right hand started hurting. She took Advil this morning without relief of pain. Denies trauma. No other complaints chest fever vomiting diarrhea. 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 Denies: Hx Cerebrovascular Accident Renal/ Medical History: Reports: Hx Ovarian Cysts. Denies: Hx Peritoneal Dialysis Malignancy Medical History: Reports: Hx Cervical Cancer GI Medical History: Reports: Hx Gastritis, Hx Hiatal Hernia, Hx Irritable Bowel , Hx Ulcerative Colitis, Hx Colonoscopy, Hx Endoscopy Musculoskeletal Medical History: Reports Hx Arthritis, Reports Hx Fibromyalgia, Reports Hx Musculoskeletal Trauma Psychiatric Medical History: Reports: Hx Anxiety, Hx Bipolar Disorder - anxiety and depression, Hx Depression Traumatic Medical History: Reports: Hx Fractures Past Surgical History: Reports: Hx Hysterectomy. Denies: Hx Pacemaker - Immunizations Hx Diphtheria, Pertussis, Tetanus Vaccination: Yes Vertical Provider Document - CONSTITUTIONAL Agree With Documented VS: Yes Exam Limitations: No Limitations General Appearance: WD/WN, No Apparent Distress - INFECTION CONTROL TRAVEL OUTSIDE OF THE [place] IN LAST 30 DAYS: No - HEENT HEENT: Atraumatic - NECK Neck: Supple - RESPIRATORY Respiratory: No Respiratory Distress - CARDIOVASCULAR Cardiovascular: Regular Rate - MUSCULOSKELETAL/EXTREMETIES Musculoskeletal/Extremeties: MAEW, FROM, Tender - right palm ttp obvious deformity no swelling no erythema no warmth FROM and good cap refill - NEURO Level of Consciousness: Awake, Alert, Appropriate Motor/Sensory: No Motor Deficit - DERM Integumentary: Warm, Dry Course - Re-evaluation Re-evalutation: 02/07/18 19:22 Negative x-ray. Patient instructed on negative x-ray instructed to take Advil for pain ice packs. discussed overuse of hand because she is a mirror painter, she verbalized understanding - Vital Signs Vital signs: Temp Pulse Resp BP Pulse Ox 98.6 F 72 15 116/72 100 02/07/18 18:25 02/07/18 18:25 02/07/18 18:25 02/07/18 18:25 02/07/18 18:25 - Diagnostic Test Radiology reviewed: Image reviewed, Reports reviewed - Diagnostic report text EXAM DESCRIPTION: HAND RIGHT 3 VIEWS COMPLETED DATE/TIME: 02/07/2018 7:00 pm REASON FOR STUDY: hand pain COMPARISON: None. EXAM PARAMETERS: NUMBER OF VIEWS: Three views. TECHNIQUE: AP, lateral and oblique radiographic images acquired of the right hand. LIMITATIONS: None. FINDINGS: MINERALIZATION: Normal. BONES: No acute fracture or dislocation. No worrisome bone lesions. JOINTS: No effusions. SOFT TISSUES: No soft tissue swelling. No foreign body. OTHER: No other significant finding. IMPRESSION: NEGATIVE STUDY OF THE RIGHT HAND. NO RADIOGRAPHIC EVIDENCE OF ACUTE INJURY Discharge - Discharge Clinical Impression: Right hand pain Condition: Stable Disposition: HOME, SELF-CARE Instructions: Anti-Inflammatory Medication ([facility]), Ice & Elevation ([facility]) Additional Instructions: *You have been evaluated for RIGHT HAND PAIN *Rest/Ice/Elevate *Follow up with orthopedics for continued pain call for an appointment *Take anti- inflammatory as indicated *Return to ED for worsening condition, changes, needs
--- NOTE | 2018-02-07 19:15 | RADIOLOGY REPORT (SQ) ---
EXAM DESCRIPTION: HAND RIGHT 3 VIEWS COMPLETED DATE/TIME: 02/07/2018 7:00 pm REASON FOR STUDY: hand pain COMPARISON: None. EXAM PARAMETERS: NUMBER OF VIEWS: Three views. TECHNIQUE: AP, lateral and oblique radiographic images acquired of the right hand. LIMITATIONS: None. FINDINGS: MINERALIZATION: Normal. BONES: No acute fracture or dislocation. No worrisome bone lesions. JOINTS: No effusions. SOFT TISSUES: No soft tissue swelling. No foreign body. OTHER: No other significant finding. IMPRESSION: NEGATIVE STUDY OF THE RIGHT HAND. NO RADIOGRAPHIC EVIDENCE OF ACUTE INJURY. TECHNICAL DOCUMENTATION: JOB ID: [id number] [employer]- All Rights Reserved Reading location - IP/workstation name: [email or web address]
== END 2018-02-07 19:42 | disposition home or self-care (01) ==
LOC: ER 18:06
DX: M79.641 Pain in right hand (principal); F17.200 Nicotine dependence, unspecified, uncomplicated; Z90.710 Acquired absence of both cervix and uterus
CPT/HCPCS: 99283

== ENCOUNTER 2018-03-16 17:46 | Emergency (ER) | payer OTHER ==
[2018-03-16] MEDS ORDERED: LIDOCAINE 2% VISCOUS SOLN 20 ML UDCUP PO ONE (19:03)
[2018-03-16] MEDS ORDERED: MAG HYDROX/AL HYDROX/SIMETH SUSP 30 ML UDCUP PO ONE (19:03)
--- NOTE | 2018-03-16 19:08 | ER Document Report ---
ED Medical Screen (RME) - General Chief Complaint: Abdominal Pain Stated Complaint: VOMITING, BURNING IN STOMACH Time Seen by Provider: 03/16/18 18:56 Notes: 32-year-old female patient with a one-week history of burning epigastric abdominal pain, sore throat, chest pressure, vomiting every morning, nausea throughout the day. She had a hysterectomy 7 years ago. She does have a past history of ulcerative colitis. I have greeted and performed a rapid initial assessment of this patient. A comprehensive ED assessment and evaluation of the patient, analysis of test results and completion of the medical decision making process will be conducted by additional ED providers. TRAVEL OUTSIDE OF THE [place] IN LAST 30 DAYS: No - Related Data Allergies/Adverse Reactions: ibuprofen [Ibuprofen] Allergy (Severe, Verified 02/19/18 12:43) throat swells, itching blotches aspirin Allergy (Verified 02/19/18 12:43) Past Medical History - Social History Chew tobacco use (# tins/day): No Frequency of alcohol use: None Drug Abuse: None - Past Medical History Cardiac Medical History: Denies: Hx Heart Attack, Hx Hypertension Pulmonary Medical History: Denies: Hx Asthma, Hx Bronchitis, Hx COPD, Hx Pneumonia Neurological Medical History: Reports: Hx Seizures. Denies: Hx Cerebrovascular Accident Renal/ Medical History: Reports: Hx Ovarian Cysts. Denies: Hx Peritoneal Dialysis Malignancy Medical History: Reports: Hx Cervical Cancer GI Medical History: Reports: Hx Gastritis, Hx Hiatal Hernia, Hx Irritable Bowel , Hx Ulcerative Colitis, Hx Colonoscopy, Hx Endoscopy Musculoskeltal Medical History: Reports Hx Arthritis, Reports Hx Fibromyalgia, Reports Hx Musculoskeletal Trauma Psychiatric Medical History: Reports: Hx Anxiety, Hx Bipolar Disorder - anxiety and depression, Hx Depression Traumatic Medical History: Reports: Hx Fractures Past Surgical History: Reports: Hx Hysterectomy. Denies: Hx Pacemaker - Immunizations Hx Diphtheria, Pertussis, Tetanus Vaccination: Yes History of Influenza Vaccine for 03/2017 - 08/2017 Season: No Physical Exam - Vital signs Vitals: Temp Pulse Resp BP Pulse Ox 98.4 F 74 18 112/72 99 03/16/18 18:05 03/16/18 18:05 03/16/18 18:05 03/16/18 18:05 03/16/18 18:05 Course - Vital Signs Vital signs: Temp Pulse Resp BP Pulse Ox 98.4 F 74 18 112/72 99 03/16/18 18:05 03/16/18 18:05 03/16/18 18:05 03/16/18 18:05 03/16/18 18:05
[2018-03-16 19:24] LABS: ABSOLUTE BASOPHILS # (AUTO) 0.1 10^3/uL (0.0-0.2); ABSOLUTE EOSINOPHILS # (AUTO) 0.3 10^3/uL (0.0-0.6); ABSOLUTE LYMPHOCYTES (AUTO) 4.7 10^3/uL (0.5-4.7); ABSOLUTE MONOCYTES (AUTO) 0.7 10^3/uL (0.1-1.4); ABSOLUTE NEUT (AUTO) 6.7 10^3/uL (1.7-8.2); BASOPHILS % (AUTO) 0.9 % (0-2); EOSINOPHILS % (AUTO) 2.4 % (0-6); HEMATOCRIT 44.8 % (36.0-47.0); HEMOGLOBIN 15.3 g/dL (12.0-15.5); MEAN CORPUSCULAR HGB CONC 34.1 g/dL (32.0-36.0); MEAN CORPUSCULAR VOLUME 94 fl (80-97); MONOCYTES % (AUTO) 5.9 % (3-13); PLATELET COUNT 265 10^3/uL (150-450); RED BLOOD COUNT 4.78 10^6/uL (3.72-5.28); SEGMENTED NEUTROPHILS % (AUTO) 53.8 % (42-78); TOTAL CELLS COUNTED % (AUTO) 100 %; WHITE BLOOD COUNT 12.6 10^3/uL (4.0-10.5)
[2018-03-16 19:37] LABS: APPEARANCE,URINE CLEAR; BILIRUBIN,URINE NEGATIVE (NEGATIVE); COLOR,URINE STRAW; GLUCOSE, URINE NEGATIVE (NEGATIVE); KETONES,URINE NEGATIVE (NEGATIVE); LEUKOCYTE ESTERASE,URINE NEGATIVE (NEGATIVE); NITRITE,URINE NEGATIVE (NEGATIVE); PROTEIN,URINE NEGATIVE (NEGATIVE); URINE SPECIFIC GRAVITY 1.004; UROBILINOGEN,URINE NEGATIVE mg/dL (<2.0)
[2018-03-16 19:46] LABS: ALBUMIN 4.7 g/dL (3.5-5.0); ANION GAP 13 (5-19); ASPARTATE AMINO TRANSFERASE 33 U/L (14-36); BLOOD UREA NITROGEN 11 mg/dL (7-20); CALCIUM 10.2 mg/dL (8.4-10.2); CARBON DIOXIDE 23 mmol/L (22-30); CHLORIDE 104 mmol/L (98-107); GLUCOSE 89 mg/dL (75-110); POTASSIUM 4.5 mmol/L (3.6-5.0); SODIUM 139.6 mmol/L (137-145)
[2018-03-16 19:47] LABS: ALANINE AMINOTRANSFERASE 57 U/L (9-52); ALKALINE PHOSPHATASE 55 U/L (38-126); BILIRUBIN,DIRECT 0.4 mg/dL (0.0-0.4); BILIRUBIN,TOTAL 0.9 mg/dL (0.2-1.3); TOTAL PROTEIN 8.4 g/dL (6.3-8.2)
[2018-03-16] MEDS ORDERED: FAMOTIDINE 20 MG TABLET PO ONE (20:14)
[2018-03-16] MEDS ORDERED: SUCRALFATE 1 GM TABLET PO ONE (20:14)
--- NOTE | 2018-03-16 20:15 | ER Document Report ---
ED General - General Chief Complaint: Abdominal Pain Stated Complaint: VOMITING, BURNING IN STOMACH Time Seen by Provider: 03/16/18 18:56 Notes: Patient is a 32-year-old female with a past medical history of ulcerative colitis tobacco abuse, who presents with 1 week of epigastric abdominal pain, nausea, vomiting and burning in her chest. She reports that the symptoms have been constant over the past 1 week. Exacerbated by eating. Nothing improves her symptoms. She notes a history of similar symptoms in the past when she has had reflux esophagitis and gastritis. She currently describes a constant, burning, aching pain to her upper abdomen. She has not contacted her primary care doctor regarding today's concerns. She denies any use of NSAIDs or steroids. No alcohol use currently although has in the past. She denies any chest pain, fever, shortness of breath. TRAVEL OUTSIDE OF THE [place] IN LAST 30 DAYS: No - Related Data Allergies/Adverse Reactions: ibuprofen [Ibuprofen] Allergy (Severe, Verified 02/19/18 12:43) throat swells, itching blotches aspirin Allergy (Verified 02/19/18 12:43) Past Medical History - General Information source: Patient - Social History Smoking Status: Current Every Day Smoker Chew tobacco use (# tins/day): No Frequency of alcohol use: None Drug Abuse: None Lives with: Spouse/Significant other Family History: Arthritis, CAD, COPD, CVA, DM, Hyperlipidemia, Hypertension, Malignancy, Other Patient has suicidal ideation: No Patient has homicidal ideation: No - Past Medical History Cardiac Medical History: Denies: Hx Heart Attack, Hx Hypertension Pulmonary Medical History: Denies: Hx Asthma, Hx Bronchitis, Hx COPD, Hx Pneumonia Neurological Medical History: Reports: Hx Seizures. Denies: Hx Cerebrovascular Accident Renal/ Medical History: Reports: Hx Ovarian Cysts. Denies: Hx Peritoneal Dialysis Malignancy Medical History: Reports: Hx Cervical Cancer GI Medical History: Reports: Hx Gastritis, Hx Hiatal Hernia, Hx Irritable Bowel , Hx Ulcerative Colitis, Hx Colonoscopy, Hx Endoscopy Musculoskeletal Medical History: Reports Hx Arthritis, Reports Hx Fibromyalgia, Reports Hx Musculoskeletal Trauma Psychiatric Medical History: Reports: Hx Anxiety, Hx Bipolar Disorder - anxiety and depression, Hx Depression Traumatic Medical History: Reports: Hx Fractures Past Surgical History: Reports: Hx Hysterectomy. Denies: Hx Pacemaker - Immunizations Hx Diphtheria, Pertussis, Tetanus Vaccination: Yes Review of Systems - Review of Systems Notes: Constitutional: Negative for fever. HENT: Negative for sore throat. Eyes: Negative for visual changes. Cardiovascular: Negative for chest pain. Respiratory: Negative for shortness of breath. Gastrointestinal: Positive for abdominal pain and vomiting Genitourinary: Negative for dysuria. Musculoskeletal: Negative for back pain. Skin: Negative for rash. Neurological: Negative for headaches, weakness or numbness. 10 point ROS negative except as marked above and in HPI. Physical Exam - Vital signs Vitals: Temp Pulse Resp BP Pulse Ox 98.4 F 74 18 112/72 99 03/16/18 18:05 03/16/18 18:05 03/16/18 18:05 03/16/18 18:05 03/16/18 18:05 Interpretation: Normal Notes: PHYSICAL EXAMINATION: GENERAL: Appears moderately uncomfortable but in no acute distress HEAD: Atraumatic, normocephalic. EYES: Pupils equal round and reactive to light, extraocular movements intact, sclera anicteric, conjunctiva are normal. ENT: nares patent, oropharynx clear without exudates. Moist mucous membranes. NECK: Normal range of motion, supple without lymphadenopathy LUNGS: Breath sounds clear to auscultation bilaterally and equal. No wheezes rales or rhonchi. HEART: Regular rate and rhythm without murmurs ABDOMEN: Soft, mild epigastric abdominal tenderness but no other localized areas of abdominal tenderness. Bedside ultrasound of the right upper quadrant without any evidence of pericholecystic fluid, gallbladder wall thickening or gallstones., normoactive bowel sounds. No guarding, no rebound. No masses appreciated. EXTREMITIES: Normal range of motion, no pitting or edema. No cyanosis. NEUROLOGICAL: No focal neurological deficits. Moves all extremities spontaneously and on command. PSYCH: Normal mood, normal affect. SKIN: Warm, Dry, normal turgor, no rashes or lesions noted. Course - Re-evaluation Re-evalutation: 03/16/18 20:12 Patient presents with epigastric abdominal pain with associated reflux symptoms most consistent with likely gastritis. Patient has no focal abdominal tenderness on examination. Bedside right upper quadrant ultrasound does not demonstrate any evidence of acute cholecystitis or cholelithiasis. Lipase is normal. No LFT changes. Based on history and exam, I do not suspect ACS, pulmonary embolus, SBO, mesenteric ischemia, acute pancreatitis, biliary pathology, or an abdominal aortic dissection. Patient has had improvement of symptoms here with a GI cocktail. At this time will discharge with return precautions and follow-up recommendations. Verbal discharge instructions given a the bedside and opportunity for questions given. Medication warnings reviewed. Patient is in agreement with this plan and has verbalized understanding of return precautions and the need for primary care follow-up in the next 24-72 hours. - Vital Signs Vital signs: Temp Pulse Resp BP Pulse Ox 98.4 F 69 16 108/82 99 03/16/18 20:28 03/16/18 20:28 03/16/18 20:28 03/16/18 20:28 03/16/18 20:28 - Laboratory Result Diagrams: 03/16/18 19:13 03/16/18 19:13 Laboratory results interpreted by me: 03/16/18 03/16/18 19:13 19:13 WBC 12.6 H ALT 57 H Total Protein 8.4 H Discharge - Discharge Clinical Impression: Epigastric abdominal pain, Tobacco dependency Nausea and vomiting Qualifiers: Vomiting type: unspecified Vomiting Intractability: non-intractable Qualified Code(s): R11.2 - Nausea with vomiting, unspecified Gastritis Qualifiers: Gastritis type: unspecified gastritis Chronicity: acute Gastritis bleeding: presence of bleeding unspecified Qualified Code(s): K29.00 - Acute gastritis without bleeding Condition: Good Disposition: HOME, SELF-CARE Instructions: Stop Smoking ([facility]) Additional Instructions: Your symptoms appear to be most consistent with stomach or upper intestinal irritation. Please begin taking famotidine 40 mg in the morning and 40 mg at night. This medicine can be purchased directly [id number]. You may also take medicine such as Pepto-Bismol or Tums to assist with your pain. Please return to emergency department immediately if you have worsening of your pain, shortness of breath, vomiting, become unable to exert yourself due to pain or difficulty breathing, you pass out, or have any pain that radiates into your arms, jaw, or back. Please also return if you have any additional symptoms that are concerning to you. As we have discussed, the most important thing is lifestyle changes. You need to avoid smoking, sodas, tea, coffee, alcohol, spicy foods, and acidic foods such as citrus fruits, tomato based products, berries, and most fruit juices. Prescriptions: Famotidine 40 mg PO BID #60 tablet Sucralfate [Carafate 1 gm Tablet] 1 gm PO ACHS #120 tablet
[2018-03-16 20:29] VITALS: BP 108/82
== END 2018-03-16 20:29 | disposition home or self-care (01) ==
LOC: ER 17:46
DX: K29.00 Acute gastritis without bleeding (principal); R10.13 Epigastric pain; R11.2 Nausea with vomiting, unspecified; R09.89 Other specified symptoms and signs involving the circulatory and respiratory systems; F17.200 Nicotine dependence, unspecified, uncomplicated; Z87.19 Personal history of other diseases of the digestive system; Z88.6 Allergy status to analgesic agent; Z85.41 Personal history of malignant neoplasm of cervix uteri
CPT/HCPCS: 99284; 36415; 83690; 85025; 80053; 81001; J3490

== ENCOUNTER 2018-03-21 09:16 | Emergency (ER) | payer OTHER ==
--- NOTE | 2018-03-21 09:52 | ER Document Report ---
ED Medical Screen (RME) - General Chief Complaint: Abdominal Pain Stated Complaint: VOMITING/ABDOMINAL PAIN Time Seen by Provider: 03/21/18 09:48 TRAVEL OUTSIDE OF THE [place] IN LAST 30 DAYS: No - HPI Patient complains to provider of: abdominal pain Onset: Other - 32-year-old with chronic abdominal pain who presents for second visit within a week for recurrent abdominal pain today began vomiting large volume of blood clots into the toilet, she also has had dark stools. Endorses some fevers and chills, denies any dysuria or other symptoms. - Related Data Allergies/Adverse Reactions: ibuprofen [Ibuprofen] Allergy (Severe, Verified 03/21/18 09:53) throat swells, itching blotches aspirin Allergy (Verified 03/21/18 09:53) Past Medical History - Past Medical History Cardiac Medical History: Denies: Hx Heart Attack, Hx Hypertension Pulmonary Medical History: Denies: Hx Asthma, Hx Bronchitis, Hx COPD, Hx Pneumonia Neurological Medical History: Reports: Hx Seizures. Denies: Hx Cerebrovascular Accident Renal/ Medical History: Reports: Hx Ovarian Cysts. Denies: Hx Peritoneal Dialysis Malignancy Medical History: Reports: Hx Cervical Cancer GI Medical History: Reports: Hx Gastritis, Hx Hiatal Hernia, Hx Irritable Bowel , Hx Ulcerative Colitis, Hx Colonoscopy, Hx Endoscopy Musculoskeltal Medical History: Reports Hx Arthritis, Reports Hx Fibromyalgia, Reports Hx Musculoskeletal Trauma Psychiatric Medical History: Reports: Hx Anxiety, Hx Bipolar Disorder - anxiety and depression, Hx Depression Traumatic Medical History: Reports: Hx Fractures Past Surgical History: Reports: Hx Hysterectomy. Denies: Hx Pacemaker - Immunizations Hx Diphtheria, Pertussis, Tetanus Vaccination: Yes History of Influenza Vaccine for 03/2017 - 08/2017 Season: No Physical Exam - Vital signs Vitals: Temp Pulse Resp BP Pulse Ox 98.1 F 78 15 102/69 99 03/21/18 09:20 03/21/18 09:20 03/21/18 09:20 03/21/18 09:20 03/21/18 09:20 Course - Re-evaluation Re-evalutation: 03/21/18 10:05 I performed a rapid medical screening examination on this patient, believe she will require some further investigation and evaluation will defer further testing or disposition determination to another provider. Have ordered workup for possible GI bleed. We will initiate some fluids for this patient, will initiate treatment with Pepcid. - Vital Signs Vital signs: Temp Pulse Resp BP Pulse Ox 98.1 F 78 15 102/69 99 03/21/18 09:20 03/21/18 09:20 03/21/18 09:20 03/21/18 09:20 03/21/18 09:20
[2018-03-21] MEDS ORDERED: FAMOTIDINE INJ/PF 20 MG/2 ML SDV IV ONE (10:00)
[2018-03-21] MEDS ORDERED: NORMAL SALINE 1000 ML 1,000 ML IV ONE (10:06)
[2018-03-21 10:29] LABS: APPEARANCE,URINE HAZY; BILIRUBIN,URINE NEGATIVE (NEGATIVE); COLOR,URINE YELLOW; GLUCOSE, URINE NEGATIVE (NEGATIVE); KETONES,URINE NEGATIVE (NEGATIVE); LEUKOCYTE ESTERASE,URINE LARGE (NEGATIVE); NITRITE,URINE NEGATIVE (NEGATIVE); PROTEIN,URINE NEGATIVE (NEGATIVE); UROBILINOGEN,URINE NEGATIVE mg/dL (<2.0)
[2018-03-21 10:30] LABS: URINE SPECIFIC GRAVITY 1.015
[2018-03-21 10:56] LABS: ABSOLUTE BASOPHILS # (AUTO) 0.1 10^3/uL (0.0-0.2); ABSOLUTE EOSINOPHILS # (AUTO) 0.2 10^3/uL (0.0-0.6); ABSOLUTE LYMPHOCYTES (AUTO) 3.7 10^3/uL (0.5-4.7); ABSOLUTE MONOCYTES (AUTO) 0.5 10^3/uL (0.1-1.4); ABSOLUTE NEUT (AUTO) 5.9 10^3/uL (1.7-8.2); BASOPHILS % (AUTO) 0.7 % (0-2); EOSINOPHILS % (AUTO) 2.1 % (0-6); HEMATOCRIT 42.7 % (36.0-47.0); HEMOGLOBIN 14.7 g/dL (12.0-15.5); LYMPHOCYTES % (AUTO) 35.8 % (13-45); MEAN CORPUSCULAR HEMOGLOBIN 32.3 pg (27.0-33.4); MEAN CORPUSCULAR HGB CONC 34.4 g/dL (32.0-36.0); MEAN CORPUSCULAR VOLUME 94 fl (80-97); MONOCYTES % (AUTO) 4.6 % (3-13); PLATELET COUNT 268 10^3/uL (150-450); RED BLOOD COUNT 4.56 10^6/uL (3.72-5.28); RED CELL DISTRIBUTION WIDTH 13.8 % (11.5-14.0); SEGMENTED NEUTROPHILS % (AUTO) 56.8 % (42-78); TOTAL CELLS COUNTED % (AUTO) 100 %; WHITE BLOOD COUNT 10.5 10^3/uL (4.0-10.5)
--- NOTE | 2018-03-21 10:57 | ER Document Report ---
ED General - General Chief Complaint: Abdominal Pain Stated Complaint: VOMITING/ABDOMINAL PAIN Time Seen by Provider: 03/21/18 09:48 Notes: Patient is a 32-year-old female with history of Crohn's and ulcerative colitis that presents to the emergency department for chief complaint of abdominal pain. Reports she has been having this pain for approximately 3 weeks, it is mainly in the upper right side of her abdomen, she says associated nausea and vomiting that seems to be worse in the morning. She denies having any associated diarrhea. She currently rates the pain as a 6 out of 10, describes as an aching sensation, occasionally sharp, and constant in nature. She states she does have Crohn's disease, and ulcerative colitis, but has not been on medication for several months, because she does not have insurance. She is not sure she has had a flare. She denies having any blood in her stool, but thinks she might of saw some blood in her emesis on one occasion. She denies noting any fevers, chills, night sweats, chest pain, shortness of breath, dysuria or hematuria. Past Medical History: Crohn's, ulcerative colitis Past Surgical History: Hysterectomy Social History: Admits to smoking cigarettes daily, denies alcohol or drug use Family History: Reviewed and noncontributory for presenting illness Allergies: Reviewed, see documented allergy list. REVIEW OF SYSTEMS: Unless otherwise stated in this report the patient's positive and negative responses for review of systems for constitutional, eyes, ENT, cardiovascular, respiratory, gastrointestinal, neurological, genitourinary, musculoskeletal, and integumentary systems and related systems to the presenting problem are either as stated in the HPI or were not pertinent or were negative for the symptoms and/or complaints related to the presenting medical problem. PHYSICAL EXAMINATION: Vital signs reviewed, nursing noted reviewed. GENERAL: Well-appearing, well-nourished and in no acute distress. HEAD: Atraumatic, normocephalic. EYES: Eyes appear normal, extraocular movements intact, sclera anicteric, conjunctiva are normal. ENT: nares patent, oropharynx clear without exudates. Moist mucous membranes. NECK: Normal range of motion, supple without lymphadenopathy LUNGS: Breath sounds clear to auscultation bilaterally and equal. No wheezes rales or rhonchi. HEART: Regular rate and rhythm without murmurs ABDOMEN: Soft, mild right upper quadrant and left lower quadrant tenderness with palpation, negative Hernandez's sign, negative Rovsing's maneuver, normoactive bowel sounds. No rebound, guarding, or rigidity. No masses appreciated. EXTREMITIES: Nontender, good range of motion, no pitting or edema. NEUROLOGICAL: No focal neurological deficits. Moves all extremities spontaneously Motor and sensory grossly intact on exam. PSYCH: Normal mood, normal affect. SKIN: Warm, Dry, normal turgor, no rashes or lesions noted on exposed skin TRAVEL OUTSIDE OF THE [place] IN LAST 30 DAYS: No - Related Data Allergies/Adverse Reactions: ibuprofen [Ibuprofen] Allergy (Severe, Verified 03/21/18 09:53) throat swells, itching blotches aspirin Allergy (Verified 03/21/18 09:53) Past Medical History - Social History Smoking Status: Current Every Day Smoker Chew tobacco use (# tins/day): No Frequency of alcohol use: None Drug Abuse: Marijuana Family History: Arthritis, CAD, COPD, CVA, DM, Hyperlipidemia, Hypertension, Malignancy, Other Patient has suicidal ideation: No Patient has homicidal ideation: No - Past Medical History Cardiac Medical History: Denies: Hx Heart Attack, Hx Hypertension Pulmonary Medical History: Denies: Hx Asthma, Hx Bronchitis, Hx COPD, Hx Pneumonia Neurological Medical History: Reports: Hx Seizures. Denies: Hx Cerebrovascular Accident Renal/ Medical History: Reports: Hx Ovarian Cysts. Denies: Hx Peritoneal Dialysis Malignancy Medical History: Reports: Hx Cervical Cancer GI Medical History: Reports: Hx Gastritis, Hx Hiatal Hernia, Hx Irritable Bowel , Hx Ulcerative Colitis, Hx Colonoscopy, Hx Endoscopy Musculoskeletal Medical History: Reports Hx Arthritis, Reports Hx Fibromyalgia, Reports Hx Musculoskeletal Trauma Psychiatric Medical History: Reports: Hx Anxiety, Hx Bipolar Disorder - anxiety and depression, Hx Depression Traumatic Medical History: Reports: Hx Fractures Past Surgical History: Reports: Hx Hysterectomy. Denies: Hx Pacemaker - Immunizations Hx Diphtheria, Pertussis, Tetanus Vaccination: Yes Physical Exam - Vital signs Vitals: Temp Pulse Resp BP Pulse Ox 98.1 F 78 15 102/69 99 03/21/18 09:20 03/21/18 09:20 03/21/18 09:20 03/21/18 09:20 03/21/18 09:20 Course - Re-evaluation Re-evalutation: Patient seen and examined vital signs reviewed. Laboratory data and imaging were ordered as appropriate for the patient's presenting symptoms and complaint, with consideration of any critical or life threatening conditions that may be associated with their obtained history and exam as noted above. Patient was treated with IV fluids, Pepcid, morphine and Zofran Results were reviewed when available and demonstrated unremarkable blood work, no leukocytosis, normal LFTs, normal lipase, x-ray of the abdomen was unremarkable, CT of the abdomen demonstrated trace pericholecystic fluid, without gallbladder wall thickening or cholelithiasis. The patient was re-evaluated and was improved after treatments, a CT scan did demonstrate a large stool burden particularly in the hepatic flexure of the colon, patient's clinical examination, and laboratory data did not support acute cholecystitis, despite having right upper quadrant pain, she also had lower abdominal pain, this is most likely related to bowel spasm, secondary to the patient's constipation, will treat her for constipation with MiraLAX, and magnesium citrate, given a prescription for Bentyl. Of note she was noted to have leukocyte esterase and white cells in her urine, however patient was asymptomatic, she was advised of this, but would not treat with antibiotics at this time given that she has no symptoms of urinary tract infection Evaluation was most consistent with constipation, nonspecific abdominal pain Results were discussed with the patient at this point, after careful consideration I feel that that patient can be discharged from the emergency department, the patient was educated treatments and reasons to return to the emergency department based on their presumed diagnosis as noted above, they were advised to followup with a primary care physician in 2-3 days. Patient was agreeable to plan of care. *Note is created using voice recognition software and may contain spelling, syntax or grammatical errors. Laboratory 03/21/18 03/21/18 03/21/18 10:05 10:40 10:40 WBC 10.5 RBC 4.56 Hgb 14.7 Hct 42.7 MCV 94 MCH 32.3 MCHC 34.4 RDW 13.8 Plt Count 268 Seg Neutrophils % 56.8 Lymphocytes % 35.8 Monocytes % 4.6 Eosinophils % 2.1 Basophils % 0.7 Absolute Neutrophils 5.9 Absolute Lymphocytes 3.7 Absolute Monocytes 0.5 Absolute Eosinophils 0.2 Absolute Basophils 0.1 Sodium Cancelled Potassium Cancelled Chloride Cancelled Carbon Dioxide Cancelled Anion Gap Cancelled BUN Cancelled Creatinine Cancelled Est GFR ( Amer) Cancelled Est GFR (Non-Af Amer) Cancelled Glucose Cancelled Calcium Cancelled Total Bilirubin Cancelled Direct Bilirubin Cancelled Neonat Total Bilirubin Cancelled Neonat Direct Bilirubin Cancelled Neonat Indirect Bili Cancelled AST Cancelled ALT Cancelled Alkaline Phosphatase Cancelled Total Protein Cancelled Albumin Cancelled Lipase Cancelled Urine Color YELLOW Urine Appearance HAZY Urine pH 5.0 Ur Specific Amigo 1.015 Urine Protein NEGATIVE Urine Glucose (UA) NEGATIVE Urine Ketones NEGATIVE Urine Blood NEGATIVE Urine Nitrite NEGATIVE Urine Bilirubin NEGATIVE Urine Urobilinogen NEGATIVE Ur Leukocyte Esterase LARGE H Urine WBC (Auto) 8 Urine RBC (Auto) 4 Urine Bacteria (Auto) TRACE Squamous Epi Cells Auto 7 Urine Mucus (Auto) MANY Urine Ascorbic Acid NEGATIVE Urine HCG, Qual NEGATIVE Blood Type Antibody Screen 03/21/18 03/21/18 13:05 13:05 WBC RBC Hgb Hct MCV MCH MCHC RDW Plt Count Seg Neutrophils % Lymphocytes % Monocytes % Eosinophils % Basophils % Absolute Neutrophils Absolute Lymphocytes Absolute Monocytes Absolute Eosinophils Absolute Basophils Sodium 141.9 Potassium 3.9 Chloride 106 Carbon Dioxide 23 Anion Gap 13 BUN 6 L Creatinine 0.59 Est GFR ( Amer) > 60 Est GFR (Non-Af Amer) > 60 Glucose 73 L Calcium 9.4 Total Bilirubin 0.8 Direct Bilirubin 0.2 Neonat Total Bilirubin Not Reportable Neonat Direct Bilirubin Not Reportable Neonat Indirect Bili Not Reportable AST 20 ALT 30 Alkaline Phosphatase 53 Total Protein 7.3 Albumin 4.2 Lipase 54.1 Urine Color Urine Appearance Urine pH Ur Specific Amigo Urine Protein Urine Glucose (UA) Urine Ketones Urine Blood Urine Nitrite Urine Bilirubin Urine Urobilinogen Ur Leukocyte Esterase Urine WBC (Auto) Urine RBC (Auto) Urine Bacteria (Auto) Squamous Epi Cells Auto Urine Mucus (Auto) Urine Ascorbic Acid Urine HCG, Qual Blood Type O POSITIVE Antibody Screen NEGATIVE Abdomen/Pelvis CT 03/21/18 00:00 IMPRESSION: Small amount of pericholecystic fluid between the liver and gallbladder. Correlate with right upper quadrant ultrasound No CT evidence of bowel obstruction or appendicitis. No pericolic inflammation. Abdomen X-Ray 03/21/18 09:59 IMPRESSION: NON-SPECIFIC BOWEL GAS PATTERN WITHOUT EVIDENCE FOR OBSTRUCTION. - Vital Signs Vital signs: Temp Pulse Resp BP Pulse Ox 98.7 F 60 18 104/73 100 03/21/18 15:47 03/21/18 15:47 03/21/18 15:47 03/21/18 15:47 03/21/18 15:47 - Laboratory Result Diagrams: 03/21/18 10:40 03/21/18 13:05 Laboratory results interpreted by me: 03/21/18 03/21/18 10:05 13:05 BUN 6 L Glucose 73 L Ur Leukocyte Esterase LARGE H Discharge - Discharge Clinical Impression: Abdominal pain Qualifiers: Abdominal location: unspecified location Qualified Code(s): R10.9 - Unspecified abdominal pain Constipation Qualifiers: Constipation type: unspecified constipation type Qualified Code(s): K59.00 - Constipation, unspecified Condition: Stable Disposition: HOME, SELF-CARE Instructions: Abdominal Pain ([facility]), Constipation ([facility]) Additional Instructions: Please return to the emergency department if you have any worsening, or concern of your symptoms. Please return to the emergency department if you develop chest pain, difficulty breathing, severe abdominal pain, or ongoing vomiting. Please follow-up with your primary care physician in 2-3 days and any other recommended physicians. If prescribed, take all medications as directed. If you have any questions or concerns do not hesitate to return the emergency department for evaluation. Prescriptions: Dicyclomine HCl [Bentyl 10 mg Capsule] 1 cap PO TID #15 cap Magnesium Citrate 296 ml PO ONCE PRN #1 bottle PRN Reason: Ondansetron HCl [Zofran 4 mg Tablet] 1 tab PO Q4H PRN #10 tablet PRN Reason: Polyethylene Glycol 3350 [Miralax] 17 gm PO DAILY #238 powder Referrals: CARMENZA WASSERMAN MD [ACTIVE STAFF] - Follow up in 3-5 days [facility] [Provider Group] - Follow up as needed
--- NOTE | 2018-03-21 11:05 | RADIOLOGY REPORT (SQ) ---
EXAM DESCRIPTION: ABDOMEN 2 VIEWS COMPLETED DATE/TIME: 03/21/2018 10:58 am REASON FOR STUDY: concern for obstruction COMPARISON: None. NUMBER OF VIEWS: Two views. TECHNIQUE: Supine and erect/decubitus radiographic images of the abdomen acquired. LIMITATIONS: None. FINDINGS: FREE AIR: None. No abnormal gas collections. LUNG BASES: Clear. BOWEL GAS PATTERN: Few scattered small bowel loops with air fluid levels. No distended large or small bowel loops. CALCIFICATIONS: No suspicious calcifications. SOFT TISSUES: No gross mass or suggestion of organomegaly. HARDWARE: None in the abdomen. BONES: No acute fracture. No worrisome bone lesions. OTHER: No other significant finding. IMPRESSION: NON-SPECIFIC BOWEL GAS PATTERN WITHOUT EVIDENCE FOR OBSTRUCTION. TECHNICAL DOCUMENTATION: JOB ID: [id number] [employer]- All Rights Reserved Reading location - IP/workstation name: [email or web address]
[2018-03-21] MEDS ORDERED: ONDANSETRON HCL INJ/PF 4 MG/2 ML SDV IV ONE (11:32)
[2018-03-21] MEDS ORDERED: MORPHINE SULFATE 10 MG/ML INJ IV ONE (11:32)
[2018-03-21 13:46] LABS: ALANINE AMINOTRANSFERASE 30 U/L (9-52); ALBUMIN 4.2 g/dL (3.5-5.0); ALKALINE PHOSPHATASE 53 U/L (38-126); ANION GAP 13 (5-19); ASPARTATE AMINO TRANSFERASE 20 U/L (14-36); BILIRUBIN,DIRECT 0.2 mg/dL (0.0-0.4); BILIRUBIN,TOTAL 0.8 mg/dL (0.2-1.3); BLOOD UREA NITROGEN 6 mg/dL (7-20); CALCIUM 9.4 mg/dL (8.4-10.2); CARBON DIOXIDE 23 mmol/L (22-30); CHLORIDE 106 mmol/L (98-107); GLUCOSE 73 mg/dL (75-110); LIPASE 54.1 U/L (23-300); POTASSIUM 3.9 mmol/L (3.6-5.0); SODIUM 141.9 mmol/L (137-145); TOTAL PROTEIN 7.3 g/dL (6.3-8.2)
--- NOTE | 2018-03-21 14:59 | RADIOLOGY REPORT (SQ) ---
EXAM DESCRIPTION: CT ABD/PELVIS WITH IV ORAL COMPLETED DATE/TIME: 03/21/2018 2:37 pm REASON FOR STUDY: ruq and llq abdominal pain, hx crohns/UC COMPARISON: CT abdomen pelvis 01/24/2016, 01/20/2016 TECHNIQUE: CT scan of the abdomen and pelvis performed using helical scanning technique with dynamic intravenous contrast injection. Patient drank oral contrast. Images reviewed with lung, soft tissue , and bone windows. Reconstructed coronal and sagittal MPR images reviewed. Delayed images for evalua tion of the urinary system also acquired. All images stored on PACS. All CT scanners at this facility use dose modulation, iterative reconstruction, and/or weight based d osing when appropriate to reduce radiation dose to as low as reasonably achievable (ALARA). [facility]: Dose Right [facility]: CareDose [facility]: Dose Right [facility]: Teradose 4D [facility]: Benefit Mobile CONTRAST TYPE AND DOSE: contrast/concentration: Isovue 350.00 mg/ml; Total Contrast Delivered: 67.0 ml; Total Saline Delivered: 59.8 ml RENAL FUNCTION: Creatinine 0.6 RADIATION DOSE: CT Rad equipment meets quality standard of care and radiation dose reduction techniq ues were employed. CTDIvol: 5.0 - 6.3 mGy. DLP: 593 mGy-cm.. LIMITATIONS: None. FINDINGS: LOWER CHEST: No significant findings. No nodules or infiltrates. LIVER: Normal size. No masses. No dilated ducts. SPLEEN: Normal size. No focal lesions. PANCREAS: No masses. No significant calcifications. No adjacent inflammation or peripancreatic fluid collections. Pancreatic duct not dilated. GALLBLADDER: There is trace pericholecystic fluid between the liver and gallbladder best shown on cor onal images 19-24. Right upper quadrant ultrasound could be useful for followup. No calcified galls tones. ADRENAL GLANDS: No significant masses or asymmetry. RIGHT KIDNEY AND URETER: No solid masses. No significant calcifications. No hydronephrosis or hyd roureter. LEFT KIDNEY AND URETER: No solid masses. No significant calcifications. No hydronephrosis or hydr oureter. AORTA AND VESSELS: No aneurysm. No dissection. Renal arteries, SMA, celiac without stenosis. RETROPERITONEUM: No retroperitoneal adenopathy, hemorrhage or masses. BOWEL AND PERITONEAL CAVITY: Patient drank oral contrast. No CT evidence of bowel obstruction or evon e intraperitoneal air or fluid. Large amount of stool in the ascending colon and hepatic flexure. N o distal small bowel inflammation APPENDIX: Normal, best shown on coronal image 26 PELVIS: No mass. No free fluid. Normal bladder. ABDOMINAL WALL: No masses. No hernias. BONES: No significant or acute findings. OTHER: There is a 2.6 x 2 cm cyst along the left perineum on axial image 88 IMPRESSION: Small amount of pericholecystic fluid between the liver and gallbladder. Correlate with right upper quadrant ultrasound No CT evidence of bowel obstruction or appendicitis. No pericolic inflammation. TECHNICAL DOCUMENTATION: JOB ID: [id number] Quality ID # [id number]: Final reports with documentation of one or more dose reduction techniques (e.g., Au tomated exposure control, adjustment of the mA and/or kV according to patient size, use of iterative reconstruction technique) 2010 [employer]- All Rights Reserved Reading location - IP/workstation name: [email or web address]
[2018-03-21 15:50] VITALS: BP 104/73
== END 2018-03-21 15:48 | disposition home or self-care (01) ==
LOC: ER 09:16
DX: R10.9 Unspecified abdominal pain (principal); K59.00 Constipation, unspecified; R11.10 Vomiting, unspecified; F17.210 Nicotine dependence, cigarettes, uncomplicated; Z88.6 Allergy status to analgesic agent; Z90.710 Acquired absence of both cervix and uterus
CPT/HCPCS: 99284; 96361; 96374; 96375; 86900; 86901; 36415; 86850; 83690; 85025; 81025; 80053; 81001; 74019; 74177; J2270; J2405; J7030; S0028

== ENCOUNTER 2018-03-27 19:27 | Emergency (ER) | payer OTHER ==
[2018-03-27] MEDS ORDERED: CEPHALEXIN 500 MG CAPSULE PO ONE (19:59)
[2018-03-27] MEDS ORDERED: SULFAMETHOXAZOLE/TRIMETHOPRIM 800-160 MG TABLET PO ONE (19:59)
[2018-03-27] MEDS ORDERED: HYDROCODONE/ACETAMINOPHEN 5-325 MG TABLET PO ONE (20:03)
--- NOTE | 2018-03-27 20:07 | ER Document Report ---
ED Skin Rash/Insect Bite/Abscs - General Chief Complaint: Abscess Stated Complaint: LEFT HIP PAIN,CYST Time Seen by Provider: 03/27/18 19:49 Mode of Arrival: Ambulatory Information source: Patient Notes: 32-year-old female presents to ED for Bartholin cyst to the left labia. She also has poison yanni to the right leg. She states it started about 5 days ago. She states that it is causing pain down her left leg. Patient states she has had Bartholin cyst many times in the past and has had them opened up but they keep coming back. Patient is alert and oriented respirations regular and unlabored speaking in full sentences walks with a even steady gait. TRAVEL OUTSIDE OF THE [place] IN LAST 30 DAYS: No - HPI Patient complains to provider of: Tender/swollen area Onset: Other Onset/Duration: Gradual - , Worse Quality of pain: Achy, Pressure, Sharp, Throbbing Severity: Moderate Pain Level: 4 Skin Character: Abscess, Rash - To the right leg Quality of rash: Painful Identify cause: Yes Other exposure: Poison yanni Exacerbated by: Movement, Walking Relieved by: Denies Similar symptoms previously: Yes Recently seen / treated by doctor: No - Related Data Allergies/Adverse Reactions: ibuprofen [Ibuprofen] Allergy (Severe, Verified 03/21/18 09:53) throat swells, itching blotches aspirin Allergy (Verified 03/21/18 09:53) Past Medical History - General Information source: Patient - Social History Smoking Status: Current Every Day Smoker Cigarette use (# per day): Yes - ppd Chew tobacco use (# tins/day): No Smoking Education Provided: Yes - 4 min Frequency of alcohol use: Occasional Drug Abuse: Marijuana Lives with: Family Family History: Arthritis, CAD, COPD, CVA, DM, Hyperlipidemia, Hypertension, Malignancy, Other Patient has suicidal ideation: No Patient has homicidal ideation: No - Past Medical History Cardiac Medical History: Reports: None Pulmonary Medical History: Reports: None EENT Medical History: Reports: None Neurological Medical History: Reports: Hx Seizures Endocrine Medical History: Reports: None Renal/ Medical History: Reports: Hx Ovarian Cysts Malignancy Medical History: Reports: Hx Cervical Cancer GI Medical History: Reports: Hx Gastritis, Hx Hiatal Hernia, Hx Irritable Bowel , Hx Ulcerative Colitis, Hx Colonoscopy, Hx Endoscopy Musculoskeletal Medical History: Reports Hx Arthritis, Reports Hx Fibromyalgia, Reports Hx Musculoskeletal Trauma Skin Medical History: Reports None Psychiatric Medical History: Reports: Hx Anxiety, Hx Bipolar Disorder - anxiety and depression, Hx Depression Traumatic Medical History: Reports: Hx Fractures Infectious Medical History: Reports: None Past Surgical History: Reports: Hx Hysterectomy - Immunizations Immunizations up to date: Yes Hx Diphtheria, Pertussis, Tetanus Vaccination: No - 2007 Review of Systems - Review of Systems Constitutional: No symptoms reported EENT: No symptoms reported Cardiovascular: No symptoms reported Respiratory: No symptoms reported Gastrointestinal: No symptoms reported Genitourinary: No symptoms reported Female Genitourinary: Other - left bartholin cyst Musculoskeletal: No symptoms reported Skin: No symptoms reported Hematologic/Lymphatic: No symptoms reported Neurological/Psychological: No symptoms reported -: Yes All other systems reviewed and negative Physical Exam - Vital signs Vitals: Temp Pulse Resp BP Pulse Ox 98.6 F 83 16 113/72 99 03/27/18 19:33 03/27/18 19:33 03/27/18 19:33 03/27/18 19:33 03/27/18 19:33 Interpretation: Normal - General General appearance: Appears well, Alert - HEENT Head: Normocephalic, Atraumatic Eyes: Normal Pupils: PERRL - Respiratory Respiratory status: No respiratory distress Chest status: Nontender Breath sounds: Normal Chest palpation: Normal - Cardiovascular Rhythm: Regular Heart sounds: Normal auscultation Murmur: No - Abdominal Inspection: Normal Distension: No distension Bowel sounds: Normal Tenderness: Nontender Organomegaly: No organomegaly - Genitourinary External exam: Other - left bartholin cyst - Back Back: Normal, Nontender - Extremities General upper extremity: Normal inspection, Nontender, Normal color, Normal ROM , Normal temperature General lower extremity: Normal color, Normal ROM, Normal temperature, Normal weight bearing. No: Narciso's sign Hip: Other - Rash to the right leg poison yanni - Neurological Neuro grossly intact: Yes Cognition: Normal Orientation: AAOx4 Sherley Coma Scale Eye Opening: Spontaneous Sherley Coma Scale Verbal: Oriented Reddick Coma Scale Motor: Obeys Commands Sherley Coma Scale Total: 15 Speech: Normal Motor strength normal: LUE, RUE, LLE, RLE Sensory: Normal - Psychological Associated symptoms: Normal affect, Normal mood - Skin Skin Temperature: Warm Skin Moisture: Dry Skin Color: Normal Skin irregularity: Abscess, Rash Location of irregularity: Other - left bartholin Course - Vital Signs Vital signs: Temp Pulse Resp BP Pulse Ox 98.5 F 78 18 112/75 93 03/27/18 21:24 03/27/18 21:24 03/27/18 21:24 03/27/18 21:24 03/27/18 21:24 Procedures - Incision and Drainage Left Labia Time completed: :18 Type: Simple mL's of anesthetic: 5 Blade size: 11 I&D procedure: Shurclens applied Incision Method: Incision made by scalpel Amount/type of drainage: Large amount of foul-smelling purulent drainage Discharge - Discharge Clinical Impression: left bartholin's abscess, Poison yanni dermatitis Condition: Stable Disposition: HOME, SELF-CARE Additional Instructions: ABSCESS: You have an abscess (boil). This a pus-forming infection, usually due to staph. Some boils may be left to drain on their own, but most require lancing. From the time the tender lump first appears, it may be three or four days before the abscess is ready to bar. Local heat and rest help at this stage of treatment. An antibiotic may prevent spread of the infection. Once the abscess is opened, packing may be placed into it. This is done so pus is not sealed inside by premature closure of the cavity. The packing will be removed at your follow-up visit or you may be advised to remove it yourself at home. Sometimes this packing must be replaced a few times during healing. The wound will heal with surprisingly little scar. Depending on the size and location of an abscess, healing can take one to four weeks. You may shower and wash the area around the incision site two or three times a day. Antibiotics may be prescribed, but are usually not necessary after an abscess has been drained. If you develop fever, chills, worsening pain, or increasing swelling in the area, call the doctor or return immediately. Poison Yanni Poison yanni and poison oak can cause an itchy rash. This is called contact dermatitis. It's an allergy to an oil in the plant's leaves. The oil can be spread from clothing to skin, from pets to humans, or from one spot on the body to another. Washing thoroughly with soap immediately after exposure can prevent the rash. (Clothing should be washed as well.) If the oil is not removed, an itchy rash develops a few days after the exposure. Blisters may develop. Two to three weeks may be required for healing. Generally, treatment consists of: (1) an immediate thorough washing with soap to remove the oil, (2) application of a cortisone cream, and (3) antihistamines for itching. If the reaction is particularly severe, oral cortisone medicine may be required. If there are oozing areas, these can be soaked in epsom salts or Abundio's solution. Call the doctor if the rash worsens despite treatment, or if signs of infection occur such as spreading redness, red streaks, swollen glands, swelling , or fever. POST INCISION AND DRAINAGE: You have had an incision made to allow drainage of an abscess. The incision must remain open so that pus and debris can drain from the wound. If the abscess cavity is large, packing is placed. This keeps the tissues from collapsing and trapping pus inside, while the body shrinks the cavity. The packing may need to be replaced every day or two. The physician will instruct you on the packing. Keep a bulky dressing over the area. Replace it if it becomes saturated with blood or pus. Do not disturb the packing (if present). You may shower and cleanse the area with gentle soap and warm water two or three times a day. Local warmth may be soothing, and may promote faster healing. Return if you develop high fever or chills, or if you note spreading redness, increasing swelling, or increasing tenderness. ORAL NARCOTIC MEDICATION: You have been given a norco for pain control. This medication is a narcotic. It's best taken with food, as nausea can result if taken on an empty stomach. Don't operate machinery or drive within six hours of taking this medication. Do not combine this medicine with alcohol, or with any medication which can cause sedation (such as cold tablets or sleeping pills) unless you get permission from the physician. Narcotics tend to cause constipation. If possible, drink plenty of fluids and eat a diet high in fiber and fruits. CEPHALEXIN: The antibiotic you've been prescribed is a member of the cephalosporin class. This type of antibiotic covers a wide variety of infections, including those of the skin, lungs, and urinary tract. It's useful for staph infections. This antibiotic is slightly similar to the penicillin family. In rare cases , a person who is allergic to penicillin will also be allergic to this medication. If you have had a severe allergic reaction to penicillin, and have not taken this antibiotic since that time, notify your doctor. Antibiotics which cover many germs ("broad spectrum" antibiotics) are more likely to cause diarrhea or "yeast" infections. Women prone to vaginal yeast problems may suffer an attack after taking this antibiotic. In infants, oral thrush (white spots "stuck" on the cheek) or yeast diaper rash may result. See your doctor if these problems occur. Call at once if you develop itching, hives , shortness of breath, or lightheadedness. TRIMETHOPRIM-SULFA: You have been given a prescription for trimethoprim-sulfa (TMS, Septra, Bactrim). This is a combination antibiotic of the sulfa class, often used for urinary tract infections, middle ear infections, bronchitis, shigella intestinal infection, and Pneumocystis pneumonia. TMS is usually well-tolerated. Occasional side effects include nausea and decreased appetite. Septra is not recommended for infants less than two months of age. Do not take this medication if you have experienced severe side effects or allergy to sulfa medicine. You should stop this medicine at once and contact your physician if you develop any rash, joint pain, shortness of breath, bruising, or jaundice ( yellow color in the skin), or if you develop any other new or unusual symptoms. Epsom Salt Soaks Soak the wound area in a container of warm epsom salt water. If you can't get the wound area into a bucket or diaz, use a folded towel soaked in the epsom salt solution and apply to the area. Use clean hot tap water (about the temperature of a very warm bath), mixing in about one (1) teaspoon for every pint of water. Two gallon --> 16 teaspoons Epsom Salts One gallon --> 8 teaspoons Epsom Salts Two quarts --> 4 teaspoons Epsom Salts One quart --> 2 teaspoons Epsom Salts Soak the wound for about 20 minutes while gently moving it around in the water. Repeat this four (4) times a day. STEROID MEDICATION: You have been given an injection of medicine of the cortisone/steroid class. This medication is used to control inflammation or allergy. It is often continued as a pill for a short period of time, until the acute process subsides. There are usually no side effects from short-term use of cortisone-like medications. Some persons feel an increased sense of well-being and are not sleepy at bedtime. Long-term use of cortisone medications is best avoided, unless required for a severe condition. If your condition does not remit, or relapses after the course of corticosteroid medication, you should consult your physician. FOLLOW-UP CARE: Most simple abscesses will not require a follow up visit. If you had packing placed in the abscess, remove it as instructed by the physician. If you have been referred to a physician for follow-up care, call the physicians office for an appointment as you were instructed or within the next two days. If you experience worsening or a significant change in your symptoms, return to the Emergency Department at any time for re-evaluation. Prescriptions: Cephalexin Monohydrate [Keflex 500 mg Capsule] 500 mg PO Q6H 5 Days capsule Sulfamethoxazole/Trimethoprim [Septra-Ds 800-160 mg Tablet] 1 tab PO BID #20 tablet Forms: Smoking Cessation Education Referrals: [facility] [Provider Group] - Follow up as needed
[2018-03-27] MEDS ORDERED: DEXAMETHASONE SOD PHOS INJ 10 MG/1 ML VIAL IM ONE (21:15)
[2018-03-27 21:26] VITALS: BP 112/75
[2018-03-27] MEDS ORDERED: HYDROCODONE/ACETAMINOPHEN 5-325 MG (6 TAB/ER DISP) PO PRN (21:32)
== END 2018-03-27 21:37 | disposition home or self-care (01) ==
LOC: ER 19:27
DX: N75.1 Abscess of Bartholin's gland (principal); N75.0 Cyst of Bartholin's gland; L23.7 Allergic contact dermatitis due to plants, except food; F17.210 Nicotine dependence, cigarettes, uncomplicated; Z71.6 Tobacco abuse counseling; F12.10 Cannabis abuse, uncomplicated; Z85.41 Personal history of malignant neoplasm of cervix uteri; Z88.6 Allergy status to analgesic agent
CPT/HCPCS: 99406; 99283; 96372; 56420; J1100

== ENCOUNTER 2018-05-19 09:45 | Emergency (ER) | payer OTHER ==
--- NOTE | 2018-05-19 10:40 | ER Document Report ---
ED Skin Rash/Insect Bite/Abscs - General Chief Complaint: Abscess Stated Complaint: POSSIBLE ABSCESS Time Seen by Provider: 05/19/18 10:38 Notes: 32-year-old female to the emergency department complaining of a Bartholin gland abscess. Patient has had over 40 of these in the past. States that she has been trying to get it to pop but cannot. Located on the left labia and extends down towards the buttock area on the left side. No fever, chills, sweats. No other symptoms at this time. No active drainage. Has had marsupialization procedure in the past. TRAVEL OUTSIDE OF THE [place] IN LAST 30 DAYS: No - HPI Patient complains to provider of: Tender/swollen area Quality of pain: Throbbing Severity: Severe Pain Level: 5 - Related Data Allergies/Adverse Reactions: ibuprofen [Ibuprofen] Allergy (Severe, Verified 05/19/18 09:46) throat swells, itching blotches aspirin Allergy (Verified 05/19/18 09:46) Past Medical History - General Information source: Patient - Social History Smoking Status: Current Some Day Smoker Frequency of alcohol use: None Drug Abuse: None Lives with: Family Family History: Arthritis, CAD, COPD, CVA, DM, Hyperlipidemia, Hypertension, Malignancy, Other Pulmonary Medical History: Denies: Hx Asthma, Hx Bronchitis, Hx COPD, Hx Pneumonia Neurological Medical History: Reports: Hx Seizures. Denies: Hx Cerebrovascular Accident Renal/ Medical History: Reports: Hx Ovarian Cysts. Denies: Hx Peritoneal Dialysis Malignancy Medical History: Reports: Hx Cervical Cancer GI Medical History: Reports: Hx Gastritis, Hx Hiatal Hernia, Hx Irritable Bowel , Hx Ulcerative Colitis, Hx Colonoscopy, Hx Endoscopy Musculoskeletal Medical History: Reports Hx Arthritis, Reports Hx Fibromyalgia, Reports Hx Musculoskeletal Trauma Psychiatric Medical History: Reports: Hx Anxiety, Hx Bipolar Disorder - anxiety and depression, Hx Depression Traumatic Medical History: Reports: Hx Fractures Past Surgical History: Reports: Hx Hysterectomy. Denies: Hx Pacemaker - Immunizations Immunizations up to date: Yes Hx Diphtheria, Pertussis, Tetanus Vaccination: No - 2007 Review of Systems - Review of Systems Notes: Constitutional: denies: Chills, Diaphoresis, Fever, Malaise, Weakness EENT: denies: Eye discharge, Blurred vision, Tearing, Double vision, Nose congestion, Nose discharge, Throat swelling, Mouth pain Cardiovascular: denies: Palpitations, Heart racing, Orthopnea, Dyspnea, Chest pain Respiratory: denies: Cough, Hurts to breathe, Wheezing, Shortness of breath Gastrointestinal: denies: Abdominal pain, Diarrhea, Nausea, Vomiting, Black stools, bright red blood in stool Genitourinary: denies: Burning, Dysuria, Discharge, Frequency, Flank pain, Hematuria. Bartholin glands abscess and swelling Musculoskeletal: denies: Joint pain, Joint swelling, Muscle pain, Muscle stiffness, back pain Hematologic/Lymphatic: denies: Anemia, Easy bleeding, Easy bruising, Blood clots Neurological/Psychological: denies: Confusion, Dementia, Depression, Loss of consciousness Skin: No lesions, no masses, no skin breakdown, no abscesses Physical Exam - Vital signs Vitals: Temp Pulse Resp BP Pulse Ox 98.1 F 80 16 107/76 99 05/19/18 09:49 05/19/18 09:49 05/19/18 09:49 05/19/18 09:49 05/19/18 09:49 Interpretation: Normal - General General appearance: Appears well, Alert - HEENT Head: Normocephalic, Atraumatic Eyes: Normal Pupils: PERRL - Respiratory Respiratory status: No respiratory distress Chest status: Nontender Breath sounds: Normal Chest palpation: Normal - Cardiovascular Rhythm: Regular Heart sounds: Normal auscultation Murmur: No - Abdominal Inspection: Normal Distension: No distension Bowel sounds: Normal Tenderness: Nontender Organomegaly: No organomegaly - Genitourinary Vaginal bleeding: None Notes: There is large amount of swelling noted in the left labial area which extends down inferiorly towards the anus. Palpating from the vulva anteriorly and with the other hand exteriorly you can file 5-6 cm round area consistent with what you would see with a Bartholin's abscess. - Back Back: Normal, Nontender - Extremities General upper extremity: Normal inspection, Nontender, Normal color, Normal ROM , Normal temperature General lower extremity: Normal inspection, Nontender, Normal color, Normal ROM , Normal temperature, Normal weight bearing. No: Narciso's sign - Psychological Associated symptoms: Normal affect, Normal mood - Skin Skin Temperature: Warm Skin Moisture: Dry Skin Color: Normal Course - Re-evaluation Re-evalutation: 05/19/18 11:55 Consent was obtained. Bartholin abscess and Wurd catheter was placed. No complications. Patient tolerated procedure well. Advised to follow-up with OB/ POLICE MATRON. - Vital Signs Vital signs: Temp Pulse Resp BP Pulse Ox 98.1 F 80 16 107/76 99 05/19/18 09:49 05/19/18 09:49 05/19/18 10:45 05/19/18 09:49 05/19/18 09:49 Procedures - Incision and Drainage Left Type: Simple Anesthetic type: 1% Lidocaine mL's of anesthetic: 10 Blade size: 11 I&D procedure: Betadine prep applied Incision Method: Incision made by scalpel Amount/type of drainage: 6 mL's of purulent drainage obtained while aspirating with my lidocaine inj Notes: 05/19/18 11:56 Small track was made with needle fork truck driver. After sufficient tract was obtained and small amount of drainage was seen the Word catheter was placed. 4 cc of fluid injected into the catheter. No complications. Bleeding was minimal. Discharge - Discharge Clinical Impression: Bartholin's gland abscess Condition: Good Disposition: HOME, SELF-CARE Instructions: Bartholin Gland Cyst or Abscess ([facility]) Additional Instructions: You had a Word catheter placed today for your Bartholin's gland abscess. Antibiotics and pain medication have been given. Do not remove the catheter. It will eventually fall out on its own. It will be very important that you follow-up with ENVIRONMENTAL RESEARCH PROJECT MANAGER. In the event that the pain is getting worse or your symptoms are getting worse please return immediately. Prescriptions: Hydrocodone/Acetaminophen [[place] 5-325 mg Tablet] 1 tab PO TID PRN 5 Days #15 tablet PRN Reason: Ondansetron [Zofran Odt 4 mg Tablet] 1 - 2 tab PO Q4H PRN #15 tab.rapdis PRN Reason: For Nausea/Vomiting Sulfamethoxazole/Trimethoprim [Bactrim Ds Tablet] 1 each PO BID 10 Days #20 tablet Forms: Return to Work Referrals: GRACIE HERNANDES MD [AUTOMATIC COIL MACHINE OPERATOR] - Follow up in 3-5 days
[2018-05-19] MEDS ORDERED: HYDROCODONE/ACETAMINOPHEN 5-325 MG TABLET PO ONE (10:41)
[2018-05-19] MEDS ORDERED: LIDOCAINE 1% INJ-PF (10 MG/ML) 30 ML SDV ONE (11:24)
[2018-05-19] MEDS ORDERED: ONDANSETRON 4 MG TAB.RAPDIS PO ONE (11:43)
[2018-05-19] MEDS ORDERED: SULFAMETHOXAZOLE/TRIMETHOPRIM 800-160 MG TABLET PO ONE (11:43)
[2018-05-19 12:10] VITALS: BP 110/72
== END 2018-05-19 12:09 | disposition home or self-care (01) ==
LOC: ER 09:45
DX: N75.1 Abscess of Bartholin's gland (principal); F17.200 Nicotine dependence, unspecified, uncomplicated; Z85.41 Personal history of malignant neoplasm of cervix uteri; Z88.6 Allergy status to analgesic agent
CPT/HCPCS: 99283; 56420; S0119

== ENCOUNTER 2018-05-23 19:37 | Emergency (ER) | payer OTHER ==
[2018-05-23] MEDS ORDERED: HYDROCODONE/ACETAMINOPHEN 7.5-325 MG TABLET PO ONE (23:02)
--- NOTE | 2018-05-24 | ER Document Report ---
HPI - HPI Patient complains to provider of: would re-check Time Seen by Provider: 05/23/18 23:01 Pain Level: 5 Context: Patient is a 32-year-old female presents to the emergency department for a wound recheck. Patient states on Monday she had a drain placed in bartholin' s cyst. Patient states she has had over 40 of the cysts in her lifetime. States she has been back and forth to [facility] for this cyst. Patient states provider drained the cyst on Monday, placed a drain and instructed her to follow-up with [facility]. Patient also states that she got narcotics to go home with. Patient states she has taken all of those narcotics and is still in a lot of pain. Patient denies fever, increased erythema or increased pain around site. Patient states pain is the same as it always been. Patient does admit to drainage from inserted drain. Patient states she is currently taking the Bactrim which is the antibiotic she was prescribed. Past medical history: bartholin cyst Medications: Bactrim Allergies: Ibuprofen, aspirin - REPRODUCTIVE Reproductive: DENIES: : Past Medical History - General Information source: Patient - Social History Smoking Status: Current Every Day Smoker Chew tobacco use (# tins/day): No Frequency of alcohol use: Occasional Drug Abuse: None Family History: Arthritis, CAD, COPD, CVA, DM, Hyperlipidemia, Hypertension, Malignancy, Other Patient has suicidal ideation: No Patient has homicidal ideation: No Pulmonary Medical History: Denies: Hx Asthma, Hx Bronchitis, Hx COPD, Hx Pneumonia Neurological Medical History: Reports: Hx Seizures. Denies: Hx Cerebrovascular Accident Renal/ Medical History: Reports: Hx Ovarian Cysts. Denies: Hx Peritoneal Dialysis Malignancy Medical History: Reports: Hx Cervical Cancer GI Medical History: Reports: Hx Gastritis, Hx Hiatal Hernia, Hx Irritable Bowel , Hx Ulcerative Colitis, Hx Colonoscopy, Hx Endoscopy Musculoskeletal Medical History: Reports Hx Arthritis, Reports Hx Fibromyalgia, Reports Hx Musculoskeletal Trauma Psychiatric Medical History: Reports: Hx Anxiety, Hx Bipolar Disorder - anxiety and depression, Hx Depression Traumatic Medical History: Reports: Hx Fractures Past Surgical History: Reports: Hx Hysterectomy. Denies: Hx Pacemaker - Immunizations Immunizations up to date: Yes Hx Diphtheria, Pertussis, Tetanus Vaccination: No - 2007 Vertical Provider Document - CONSTITUTIONAL Agree With Documented VS: Yes Notes: GENERAL: Alert, interacts well. No acute distress. HEAD: Normocephalic, atraumatic. EYES: Pupils equal, round, and reactive to light. Extraocular movements intact. ENT: Oral mucosa moist, tongue midline. NECK: Full range of motion. Supple. Trachea midline. LUNGS: Clear to auscultation bilaterally, no wheezes, rales, or rhonchi. No respiratory distress. HEART: Regular rate and rhythm. No murmur ABDOMEN: Soft, non-tender. Non-distended. Bowel sounds present in all 4 quadrants. EXTREMITIES: Moves all 4 extremities spontaneously. No edema, normal radial and dorsalis pedis pulses bilaterally. No cyanosis. BACK: no cervical, thoracic, lumbar midline tenderness. No saddle anesthesia, normal distal neurovascular exam. NEUROLOGICAL: Alert and oriented x3. Normal speech. cranial nerves II through XII grossly intact PSYCH: Normal affect, normal mood. SKIN: Warm, dry, normal turgor. No rashes or lesions noted. Area of hard induration noted left lower labia, drain in place, upon palpation scant purulent d/c comes from drain. no surrounding cellulitic tissue noted. - INFECTION CONTROL TRAVEL OUTSIDE OF THE [place] IN LAST 30 DAYS: No Course - Re-evaluation Re-evalutation: 05/24/18 00:02 Patient states she does have an appointment with [facility] on 05/30/2018. Patient states she has taken all of the pain medication that was prescribed to her. Patient states she is still in a lot of pain and is requesting more. In reviewing Dr. Wan's note patient was given a total of 15 Bruni was on Monday. Patient was prescribed to take them 3 times a day. If patient was taking them as prescribed she is accurate that she is currently out of her narcotics. To go pack of Bruni administered in the emergency room , patient also given a prescription for Bruni's. Area appears very tender upon palpation. Patient states she cannot sit down without it causing a lot of pain. Discussed opioid pain medication addiction and side effects of constipation. Patient voices understanding of both. Patient is afebrile, non-tachycardic at this time. Discussed that she needs to keep the drain in and follow-up with [facility]. Patient voices understanding and is stable for discharge. - Vital Signs Vital signs: Temp Pulse Resp BP Pulse Ox 98.2 F 78 16 105/60 99 05/23/18 21:13 05/23/18 21:13 05/23/18 21:13 05/23/18 21:13 05/23/18 21:13 Discharge - Discharge Clinical Impression: Bartholin's gland abscess Condition: Stable Disposition: HOME, SELF-CARE Instructions: Abscess ([facility]), Oral Narcotic Medication ([facility]), Post Incision and Drainage, Trimethoprim-Sulfa ([facility]) Additional Instructions: As we discussed you need to make sure you keep your appointment with [facility]. Please take prescription medications as prescribed. Please understand that these narcotics may make you constipated. You should start taking a stool softener with the narcotics. Please return to the emergency room for any other concerning symptoms. Prescriptions: Hydrocodone/Acetaminophen [Bruni 7.5-325 mg Tablet] 1 tab PO Q6 #16 tablet Lidocaine/Prilocaine [Emla Cream] 30 gm TP TID #1 cream.gm.
[2018-05-24] MEDS ORDERED: HYDROCODONE/ACETAMINOPHEN 5-325 MG (6 TAB/ER DISP) PO PRN (00:08)
[2018-05-24] MEDS ORDERED: LIDOCAINE 2% JELLY 5 ML TUBE TOP ONE (00:37)
[2018-05-24 01:12] VITALS: BP 113/66
== END 2018-05-24 01:12 | disposition home or self-care (01) ==
LOC: ER 19:37
DX: N75.1 Abscess of Bartholin's gland (principal); F17.200 Nicotine dependence, unspecified, uncomplicated
CPT/HCPCS: 99282

== ENCOUNTER 2018-05-30 17:55 | Emergency (ER) | payer OTHER ==
--- NOTE | 2018-05-30 18:34 | ER Document Report ---
ED Medical Screen (RME) - General Chief Complaint: Wound Recheck Stated Complaint: PAINFUL CATHETER Time Seen by Provider: 05/30/18 18:09 TRAVEL OUTSIDE OF THE [place] IN LAST 30 DAYS: No - HPI Notes: 05/30/18 18:33 Patient is a 32-year-old female that presents to the emergency department for chief complaint of Bartholin's cyst. Patient has a catheter in place and is requesting its removal. She states she is having pain around the catheter but believes the cyst is healing. ROS: GENERAL: Denies fever of chills CV: Denies chest pain PHYSICAL EXAMINATION: GENERAL: Well-appearing, well-nourished and in no acute distress. HEAD: Atraumatic, normocephalic. EYES: Pupils equal round extraocular movements intact, conjunctiva are normal. ENT: Nares patent NECK: Normal range of motion LUNGS: No respiratory distress Musculoskeletal: Normal range of motion NEUROLOGICAL: Normal speech, normal gait. PSYCH: Normal mood, normal affect. MDM: Patient seen and examined for rapid initial assessment. Vital signs reviewed. A comprehensive ED assessment and evaluation of the patient, analysis of test results and completion of the medical decision making process will be conducted by additional ED providers. - Related Data Allergies/Adverse Reactions: ibuprofen [Ibuprofen] Allergy (Severe, Verified 05/30/18 18:15) throat swells, itching blotches aspirin Allergy (Verified 05/30/18 18:15) Past Medical History - Social History Chew tobacco use (# tins/day): No Frequency of alcohol use: None Drug Abuse: None Pulmonary Medical History: Denies: Hx Asthma, Hx Bronchitis, Hx COPD, Hx Pneumonia Neurological Medical History: Reports: Hx Seizures. Denies: Hx Cerebrovascular Accident Renal/ Medical History: Reports: Hx Ovarian Cysts. Denies: Hx Peritoneal Dialysis Malignancy Medical History: Reports: Hx Cervical Cancer GI Medical History: Reports: Hx Gastritis, Hx Hiatal Hernia, Hx Irritable Bowel, Hx Ulcerative Colitis, Hx Colonoscopy, Hx Endoscopy Musculoskeltal Medical History: Reports Hx Arthritis, Reports Hx Fibromyalgia, Reports Hx Musculoskeletal Trauma Psychiatric Medical History: Reports: Hx Anxiety, Hx Bipolar Disorder - anxiety and depression, Hx Depression Traumatic Medical History: Reports: Hx Fractures Past Surgical History: Reports: Hx Breast Surgery - lumpectomy r beast, Hx Hysterectomy. Denies: Hx Pacemaker - Immunizations Immunizations up to date: Yes Hx Diphtheria, Pertussis, Tetanus Vaccination: No - 2007 History of Influenza Vaccine for 03/2017 - 08/2017 Season: No Physical Exam - Vital signs Vitals: Temp Pulse Resp BP Pulse Ox 98.5 F 99 18 108/63 100 05/30/18 18:08 05/30/18 18:08 05/30/18 18:08 05/30/18 18:08 05/30/18 18:08 Course - Vital Signs Vital signs: Temp Pulse Resp BP Pulse Ox 98.5 F 99 18 108/63 100 05/30/18 18:08 05/30/18 18:08 05/30/18 18:08 05/30/18 18:08 05/30/18 18:08
[2018-05-30] MEDS ORDERED: CLINDAMYCIN HCL 150 MG CAPSULE PO ONE (20:25)
[2018-05-30] MEDS ORDERED: HYDROCODONE/ACETAMINOPHEN 5-325 MG (6 TAB/ER DISP) PO PRN (20:26)
[2018-05-30] MEDS ORDERED: HYDROCODONE/ACETAMINOPHEN 5-325 MG TABLET PO ONE (20:26)
[2018-05-30] MEDS ORDERED: LIDOCAINE 2% JELLY 30 ML TUBE TOP ONE (20:33)
--- NOTE | 2018-05-30 20:39 | ER Document Report ---
ED General - General Chief Complaint: Wound Recheck Stated Complaint: PAINFUL CATHETER Time Seen by Provider: 05/30/18 18:09 Mode of Arrival: Ambulatory Information source: Patient Notes: Patient is a 32-year-old female who presents to the emergency department because she would like her catheter rechecked. Patient has a Word catheter that was placed into a bartholians cyst last week. She reports that she completed all of the antibiotics that were prescribed, she reports there is still a significant amount of drainage coming out. Patient reports she is doing warm soaks in Epsom salts as directed. Patient denies any fevers or any other symptoms other than pain to the area. TRAVEL OUTSIDE OF THE [place] IN LAST 30 DAYS: No - Related Data Allergies/Adverse Reactions: ibuprofen [Ibuprofen] Allergy (Severe, Verified 05/30/18 18:15) throat swells, itching blotches aspirin Allergy (Verified 05/30/18 18:15) Past Medical History - General Information source: Patient - Social History Smoking Status: Current Every Day Smoker Chew tobacco use (# tins/day): No Frequency of alcohol use: None Drug Abuse: None Family History: Arthritis, CAD, COPD, CVA, DM, Hyperlipidemia, Hypertension, Malignancy, Other Patient has suicidal ideation: No Patient has homicidal ideation: No Pulmonary Medical History: Denies: Hx Asthma, Hx Bronchitis, Hx COPD, Hx Pneumonia Neurological Medical History: Reports: Hx Seizures. Denies: Hx Cerebrovascular Accident Renal/ Medical History: Reports: Hx Ovarian Cysts. Denies: Hx Peritoneal Dialysis Malignancy Medical History: Reports: Hx Cervical Cancer GI Medical History: Reports: Hx Gastritis, Hx Hiatal Hernia, Hx Irritable Bowel, Hx Ulcerative Colitis, Hx Colonoscopy, Hx Endoscopy Musculoskeletal Medical History: Reports Hx Arthritis, Reports Hx Fibromyalgia, Reports Hx Musculoskeletal Trauma Psychiatric Medical History: Reports: Hx Anxiety, Hx Bipolar Disorder - anxiety and depression, Hx Depression Traumatic Medical History: Reports: Hx Fractures Past Surgical History: Reports: Hx Breast Surgery - lumpectomy r beast, Hx Hysterectomy. Denies: Hx Pacemaker - Immunizations Immunizations up to date: Yes Hx Diphtheria, Pertussis, Tetanus Vaccination: No - 2007 Review of Systems - Review of Systems Female Genitourinary: Other - Vaginal pain -: Yes All other systems reviewed and negative Physical Exam - Vital signs Vitals: Temp Pulse Resp BP Pulse Ox 98.5 F 99 18 108/63 100 05/30/18 18:08 05/30/18 18:08 05/30/18 18:08 05/30/18 18:08 05/30/18 18:08 - Notes Notes: PHYSICAL EXAMINATION: GENERAL: Well-appearing, well-nourished and in no acute distress. HEAD: Atraumatic, normocephalic. EYES: Pupils equal round and reactive to light, extraocular movements intact, conjunctiva are normal. ENT: Nares patent, oropharynx clear without exudates. Moist mucous membranes. NECK: Normal range of motion, supple without lymphadenopathy LUNGS: Breath sounds clear to auscultation bilaterally and equal. No wheezes rales or rhonchi. HEART: Regular rate and rhythm without murmurs ABDOMEN: Soft, nontender, nondistended abdomen. No guarding, no rebound. No masses appreciated. Female : Area of induration noted to left labia majora, Word catheter in place. No fluctuance noted. Musculoskeletal: Normal range of motion, no pitting or edema. No cyanosis. NEUROLOGICAL: Cranial nerves grossly intact. Normal speech, normal gait. Normal sensory, motor exams PSYCH: Normal mood, normal affect. SKIN: Warm, Dry, normal turgor, no rashes or lesions noted. Course - Re-evaluation Re-evalutation: Options were discussed with the patient whether or not we should remove the Word catheter. Patient reports that the catheter is still draining so I recommended to the patient that the catheter stay in place along as it is still draining fluids. Will place patient on a different antibiotic and give her additional pain medications as she reports that she is out of them and patient does appear to have acute pain. Patient will be encouraged to continue Epsom salt sits baths. She will follow-up with [facility] as initially planned. Patient instructed to return to the emergency department if she develops a fever. - Vital Signs Vital signs: Temp Pulse Resp BP Pulse Ox 97.8 F 81 20 100/60 100 05/30/18 21:30 05/30/18 21:30 05/30/18 21:30 05/30/18 21:30 05/30/18 21:30 Discharge - Discharge Clinical Impression: Bartholin cyst Condition: Stable Disposition: HOME, SELF-CARE Additional Instructions: Bartholin Gland Cyst or Abcess The Bartholin glands are located on each side of the entrance to the vagina. These glands secrete lubricating fluid. If a gland becomes plugged, it can create a "Bartholin's cyst." This creates a large bulge on one side of the labia. A cyst is usually not very painful. If a Bartholin's cyst or gland becomes infected, it creates an abscess. This is a painful collection of pus. One side of the labia becomes swollen, red, and painful. It will be very painful to walk or sit. When a Bartholin's cyst causes mild symptoms, it can sometimes be treated with sitz baths and antibiotics. A painful abscess usually needs to be drained (lanced). If there are signs of infection in the tissues around the abscess, we prescribe antibiotics. Antibiotics are not always necessary for an abscess that's been drained. If packing has been placed, it's important to follow up as scheduled for removal or replacement of the packing. Return if you have increasing fever, body aches, lightheadedness, or if the swelling and pain is getting worse. Considering that your cyst is still draining is very red I do think the catheter is doing its job and needs to stay in place. I will put you on a different antibiotic that might help with the infection. I will also prescribe you additional pain medications. It is important that you try to follow-up with [facility] or another [facility] of your choosing. I have enclosed a few names for you who might be able to help you. Return to the emergency department if you experience worsening symptoms such as development of fever, body aches, lightheadedness or any other symptom that is concerning to you. We are happy to reevaluate you here in the emergency department at any time. Prescriptions: RX: Clindamycin HCl 300 mg PO TID #30 capsule Hydrocodone Bit/Acetaminophen [Hydrocodon-Acetaminophen 5-325] 1 each PO Q4H #14 tablet Lidocaine/Prilocaine [Lidocaine-Prilocaine Cream] 1 each TP TID #1 kit Ondansetron [Zofran Odt 4 mg Tablet] 1 - 2 tab PO Q4H PRN #15 tab.rapdis PRN Reason: For Nausea/Vomiting Forms: Return to Work
[2018-05-30 22:27] VITALS: BP 100/60
== END 2018-05-30 21:30 | disposition home or self-care (01) ==
LOC: ER 17:55
DX: N75.0 Cyst of Bartholin's gland (principal); Z98.890 Other specified postprocedural states; F17.200 Nicotine dependence, unspecified, uncomplicated; Z85.41 Personal history of malignant neoplasm of cervix uteri; Z88.6 Allergy status to analgesic agent
CPT/HCPCS: 99282

== ENCOUNTER 2018-06-06 11:08 | Inpatient (IN) | payer OTHER ==
[2018-06-06] MEDS ORDERED: HYDROCODONE/ACETAMINOPHEN 5-325 MG TABLET PO ONE (12:32)
--- NOTE | 2018-06-06 12:32 | ER Document Report ---
ED Medical Screen (RME) - General TRAVEL OUTSIDE OF THE [place] IN LAST 30 DAYS: No <LUIS MIGUEL BETANCOURT - Last Filed: 06/06/18 13:00> <GREG HUTCHINSON - Last Filed: 06/06/18 21:43> - General Chief Complaint: Vaginal Pain Stated Complaint: VAGINAL PAIN Time Seen by Provider: 06/06/18 12:27 Notes: 32-year-old female here with complaints of Bartholin cyst. Patient states she has had this Bartholin cyst drained 43 times in the past. Patient states the drain was placed last time in this emergency department on 05 19 and it is still in place. Patient states she has had associated fevers and chills. I have greeted and performed a rapid initial assessment of this patient. A comprehensive ED assessment and evaluation of the patient, analysis of test results, and completion of the medical decision making process will be conducted by additional ED providers. Review of systems: Constitutional: Fever and chills Genitourinary: Bartholin cyst PHYSICAL EXAM GENERAL: Alert, interacts well. Appears irritated and uncomfortable. HEAD: Normocephalic, atraumatic. EYES: Pupils equal, round, and reactive to light. Extraocular movements intact. ENT: Oral mucosa moist, tongue midline. NECK: Full range of motion. Supple. Trachea midline. FEMALE GENITOURINARY: Deferred LUNGS: No respiratory distress. EXTREMITIES: Moves all 4 extremities spontaneously. NEUROLOGICAL: Alert and oriented x3. Normal speech. PSYCH: Normal affect, normal mood. SKIN: Warm, dry, normal turgor. No rashes or lesions noted. (LUIS MIGUEL BETANCOURT) - Related Data Allergies/Adverse Reactions: ibuprofen [Ibuprofen] Allergy (Severe, Verified 06/06/18 11:12) throat swells, itching blotches aspirin Allergy (Verified 06/06/18 11:12) Past Medical History - Social History Chew tobacco use (# tins/day): No Frequency of alcohol use: None Drug Abuse: None Pulmonary Medical History: Denies: Hx Asthma, Hx Bronchitis, Hx COPD, Hx Pneumonia Neurological Medical History: Reports: Hx Seizures. Denies: Hx Cerebrovascular Accident Renal/ Medical History: Reports: Hx Ovarian Cysts. Denies: Hx Peritoneal Dialysis Malignancy Medical History: Reports: Hx Cervical Cancer GI Medical History: Reports: Hx Gastritis, Hx Hiatal Hernia, Hx Irritable Bowel, Hx Ulcerative Colitis, Hx Colonoscopy, Hx Endoscopy Musculoskeltal Medical History: Reports Hx Arthritis, Reports Hx Fibromyalgia, Reports Hx Musculoskeletal Trauma Psychiatric Medical History: Reports: Hx Anxiety, Hx Bipolar Disorder - anxiety and depression, Hx Depression Traumatic Medical History: Reports: Hx Fractures Past Surgical History: Reports: Hx Breast Surgery - lumpectomy r beast, Hx Hysterectomy. Denies: Hx Pacemaker - Immunizations Immunizations up to date: Yes Hx Diphtheria, Pertussis, Tetanus Vaccination: No - 2007 History of Influenza Vaccine for 03/2017 - 08/2017 Season: No <LUIS MIGUEL BETANCOURT - Last Filed: 06/06/18 13:00> - Vital signs Vitals: Temp Pulse Resp BP Pulse Ox 97.9 F 80 17 116/67 98 06/06/18 11:21 06/06/18 11:21 06/06/18 11:21 06/06/18 11:21 06/06/18 11:21 Course - Laboratory Result Diagrams: 06/06/18 12:59 06/06/18 12:59 <GREG HUTCHINSON - Last Filed: 06/06/18 21:43> - Vital Signs Vital signs: Temp Pulse Resp BP Pulse Ox 98.3 F 80 16 107/63 98 06/06/18 19:40 06/06/18 11:21 06/06/18 20:01 06/06/18 20:01 06/06/18 20:01 - Laboratory Laboratory results interpreted by me: 06/06/18 12:59 Lymphocytes % 45.3 H Doctor's Discharge <LUIS MIGUEL BETANCOURT - Last Filed: 06/06/18 13:00> <GREG HUTCHINSON - Last Filed: 06/06/18 21:43> - Discharge Clinical Impression: Bartholin cyst abscess, Left genital labial abscess Condition: Good Disposition: ADMITTED INPATIENT
[2018-06-06 13:31] LABS: ABSOLUTE BASOPHILS # (AUTO) 0.1 10^3/uL (0.0-0.2); ABSOLUTE EOSINOPHILS # (AUTO) 0.3 10^3/uL (0.0-0.6); ABSOLUTE LYMPHOCYTES (AUTO) 3.6 10^3/uL (0.5-4.7); ABSOLUTE MONOCYTES (AUTO) 0.4 10^3/uL (0.1-1.4); ABSOLUTE NEUT (AUTO) 3.7 10^3/uL (1.7-8.2); BASOPHILS % (AUTO) 1.1 % (0-2); EOSINOPHILS % (AUTO) 3.3 % (0-6); HEMATOCRIT 41.5 % (36.0-47.0); HEMOGLOBIN 14.2 g/dL (12.0-15.5); LYMPHOCYTES % (AUTO) 45.3 % (13-45); MEAN CORPUSCULAR HEMOGLOBIN 31.9 pg (27.0-33.4); MEAN CORPUSCULAR HGB CONC 34.3 g/dL (32.0-36.0); MEAN CORPUSCULAR VOLUME 93 fl (80-97); MONOCYTES % (AUTO) 4.7 % (3-13); PLATELET COUNT 323 10^3/uL (150-450); RED BLOOD COUNT 4.46 10^6/uL (3.72-5.28); RED CELL DISTRIBUTION WIDTH 13.6 % (11.5-14.0); SEGMENTED NEUTROPHILS % (AUTO) 45.6 % (42-78); TOTAL CELLS COUNTED % (AUTO) 100 %
[2018-06-06] MEDS ORDERED: MORPHINE SULFATE 10 MG/ML INJ IM ONE (14:36)
--- NOTE | 2018-06-06 14:38 | ER Document Report ---
ED General - General Chief Complaint: Vaginal Pain Stated Complaint: VAGINAL PAIN Time Seen by Provider: 06/06/18 12:27 Mode of Arrival: Ambulatory Information source: Patient, [facility] Records Notes: 32-year-old female with fibromyalgia, ulcerative colitis, depression, anxiety, recurrent Bartholin cyst abscess requiring surgery and Estrada catheter placement presents for the fourth time this month with complaint of an abscess. Patient was last seen on May 30, 2018 where the catheter was found to be in appropriate position and pain management was provided. Patient was supposed to follow-up with [facility] on May 30 but states that because of her lack of insurance they will not see her. Patient states that since her last visit she has developed a painful's area of swelling behind where the Estrada catheter is placed. She denies any fever, chills, nausea, vomiting. Patient has undergone Bartholin gland removal on the right side and has had more than 40 Estrada catheters placed. TRAVEL OUTSIDE OF THE [place] IN LAST 30 DAYS: No - HPI Onset: Other Onset/Duration: Persistent, Worse Quality of pain: Stabbing Severity: Moderate Associated symptoms: denies: Diarrhea, Fever, Nausea, Vomiting, Shortness of breath Exacerbated by: Sitting, Movement Relieved by: Denies Similar symptoms previously: Yes Recently seen / treated by doctor: Yes - Related Data Allergies/Adverse Reactions: ibuprofen [Ibuprofen] Allergy (Severe, Verified 06/06/18 11:12) throat swells, itching blotches aspirin Allergy (Verified 06/06/18 11:12) Past Medical History - General Information source: Patient, [facility] Records - Social History Smoking Status: Current Every Day Smoker Cigarette use (# per day): Yes - 10 Chew tobacco use (# tins/day): No Smoking Education Provided: Yes - Smoking cessation counseling was provided for 4 minutes at the bedside Frequency of alcohol use: None Drug Abuse: None Lives with: Spouse/Significant other Family History: Arthritis, CAD, COPD, CVA, DM, Hyperlipidemia, Hypertension, Malignancy, Other Patient has suicidal ideation: No Patient has homicidal ideation: No Pulmonary Medical History: Denies: Hx Asthma, Hx Bronchitis, Hx COPD, Hx Pneumonia Neurological Medical History: Reports: Hx Seizures. Denies: Hx Cerebrovascular Accident Renal/ Medical History: Reports: Hx Ovarian Cysts. Denies: Hx Peritoneal Dialysis Malignancy Medical History: Reports: Hx Cervical Cancer GI Medical History: Reports: Hx Gastritis, Hx Hiatal Hernia, Hx Irritable Bowel, Hx Ulcerative Colitis, Hx Colonoscopy, Hx Endoscopy Musculoskeletal Medical History: Reports Hx Arthritis, Reports Hx Fibromyalgia, Reports Hx Musculoskeletal Trauma Psychiatric Medical History: Reports: Hx Anxiety, Hx Bipolar Disorder - anxiety and depression, Hx Depression Traumatic Medical History: Reports: Hx Fractures Past Surgical History: Reports: Hx Breast Surgery - lumpectomy r beast, Hx Hysterectomy. Denies: Hx Pacemaker - Immunizations Immunizations up to date: Yes Hx Diphtheria, Pertussis, Tetanus Vaccination: No - 2007 Review of Systems - Review of Systems Notes: REVIEW OF SYSTEMS: CONSTITUTIONAL : Denies fever, chills, or sweats. Denies recent illness. Denies weight loss, recent hospitalizations. EENT: Denies visual changes, eye pain. Denies sore throat, oral lesions, difficulty swallowing. CARDIOVASCULAR: Denies chest pain. Denies palpitations. Denies lower extremity edema. RESPIRATORY: Denies cough. Denies shortness of breath, wheezing. GASTROINTESTINAL: Denies abdominal pain or distention. Denies nausea, vomiting, or diarrhea. Denies blood in vomitus, stools, or per rectum. Denies black, tarry stools. Denies constipation. GENITOURINARY: Denies difficulty urinating, painful urination, frequency, blood in urine, or vaginal discharge. MUSCULOSKELETAL: Denies back or neck pain or stiffness. Denies joint pain or swelling. SKIN: Denies rash, lesions or sores. HEMATOLOGIC : Denies easy bruising or bleeding. LYMPHATIC: Denies swollen glands. NEUROLOGICAL: Denies confusion or altered mental status. Denies loss of consciousness. Denies dizziness or lightheadedness. Denies headache. Denies weakness or paralysis. Denies problems difficulty with ambulation, slurred speech. Denies sensory loss, numbness, or tingling. Denies seizures. PSYCHIATRIC: Denies anxiety or stress. Denies depression, suicidal ideation, or homicidal ideation. Denies visual or auditory hallucinations. Physical Exam - Vital signs Vitals: Temp Pulse Resp BP Pulse Ox 97.9 F 80 17 116/67 98 06/06/18 11:21 06/06/18 11:21 06/06/18 11:21 06/06/18 11:21 06/06/18 11:21 - Notes Notes: PHYSICAL EXAMINATION: GENERAL: Well-appearing, well-nourished and in no acute distress. HEAD: Atraumatic, normocephalic. EYES: Pupils equal round and reactive to light, extraocular movements intact, conjunctiva are normal. ENT: Nares patent, oropharynx clear without exudates. Moist mucous membranes. NECK: Normal range of motion, supple without lymphadenopathy LUNGS: Breath sounds clear to auscultation bilaterally and equal. No wheezes rales or rhonchi. HEART: Regular rate and rhythm without murmurs ABDOMEN: Soft, nontender, nondistended abdomen. No guarding, no rebound. No masses appreciated. Female : Estrada catheter in place on the left side. 3 x 3 area of induration with minimal fluctuance, no erythema but exquisitely tender with palpation. Musculoskeletal: Normal range of motion, no pitting or edema. No cyanosis. NEUROLOGICAL: Cranial nerves grossly intact. Normal speech, normal gait. Normal sensory, motor exams PSYCH: Normal mood, normal affect. SKIN: Warm, Dry, normal turgor, no rashes or lesions noted. Course - Re-evaluation Re-evalutation: Laboratory 06/06/18 06/06/18 06/06/18 12:59 12:59 19:45 WBC 8.0 RBC 4.46 Hgb 14.2 Hct 41.5 MCV 93 MCH 31.9 MCHC 34.3 RDW 13.6 Plt Count 323 Seg Neutrophils % 45.6 Lymphocytes % 45.3 H Monocytes % 4.7 Eosinophils % 3.3 Basophils % 1.1 Absolute Neutrophils 3.7 Absolute Lymphocytes 3.6 Absolute Monocytes 0.4 Absolute Eosinophils 0.3 Absolute Basophils 0.1 Sodium 138.3 Potassium 4.5 Chloride 105 Carbon Dioxide 27 Anion Gap 6 BUN 18 Creatinine 0.66 Est GFR ( Amer) > 60 Est GFR (Non-Af Amer) > 60 Glucose 97 Calcium 9.6 Chlamydia DNA (PCR) NOT DETECTED N.gonorrhoeae DNA (PCR) NOT DETECTED Pelvis Ultrasound 06/06/18 14:35 IMPRESSION: Increase in size of left Bartholin's cyst/abscess compared to CT 03/21/2018. Short segment of drainage catheter is identified in the superficial aspect of this abscess. Deeper pelvic extension could not be excluded. Consider CT for followup. Findings discussed with the emergency room attending physician Abdomen/Pelvis CT 06/06/18 16:22 IMPRESSION: Likely Bartholin's duct abscess. At least 2 of the cystic areas are confluent. There is no air in the soft tissues. 06/06/18 14:41 32-year-old female presents with complaint of vaginal pain. Patient has a history of recurrent Bartholin cysts and has been seen here 4 times this month for similar symptoms. Vital signs stable upon arrival. Patient does not appear toxic or dehydrated. She is in mild distress due to discomfort. Exam is significant for a Estrada catheter which appears to be in appropriate position and an area of swelling and induration and tenderness inferior to where the wart catheter is placed. Patient does report that there is some drainage still occurring from the catheter. Patient recently completed a round of antibiotics. She has not yet been able to follow-up with [facility] due to insurance issues. Patient was given [place] prior to my exam but is complaining of significant pain. IM morphine was administered. I did perform a bedside ultrasound to assess for abscess and I could not see a definitive border. I will order an ultrasound of the soft tissue. 06/06/18 16:[address] Momin radiologist to who is reading ultrasounds today. Patient does have an abscess present but she believes that there is extension and recommend a CT of the pelvis with contrast. 06/07/18 02:[address] Munoz who is familiar with the patient herself performs catheter placement and I&D for the patient. Explained to her that because of insurance reasons patient has been able to follow-up in the office. Seen by IV an tibiotics and testing for GC and chlamydia which were performed. Patient did receive IV clindamycin and cefotaxime during her ED course. Because of the recurrence of this issue, the patient's extreme discomfort Dr. Munoz has agreed to admit the patient. Patient is agreeable with admission. 06/07/18 02:14 CBC is without leukocytosis or anemia. BMP unremarkable. Urinalysis to detect gonorrhea and chlamydia were also negative. - Vital Signs Vital signs: Temp Pulse Resp BP Pulse Ox 98.2 F 62 18 90/50 L 99 06/07/18 00:00 06/07/18 00:00 06/07/18 00:00 06/07/18 00:00 06/07/18 00:00 - Laboratory Result Diagrams: 06/06/18 12:59 06/06/18 12:59 Laboratory results interpreted by me: 06/06/18 12:59 Lymphocytes % 45.3 H - Diagnostic Test Radiology reviewed: Image reviewed, Reports reviewed Discharge - Discharge Clinical Impression: Bartholin cyst abscess, Left genital labial abscess Condition: Good Disposition: ADMITTED INPATIENT Admitting Provider: [facility] Admitted: Medical Floor
--- NOTE | 2018-06-06 16:33 | RADIOLOGY REPORT (SQ) ---
EXAM DESCRIPTION: U/S NON-OB PELVIS LTD W/O DOP COMPLETED DATE/TIME: 06/06/2018 4:14 pm REASON FOR STUDY: Peritoneal fluid collection perineal abcess, please evaluate COMPARISON: CT chest 03/21/2018 TECHNIQUE: Dynamic and static grayscale images acquired of the pelvis via trans labial approach and recorded on PACS. Additional selected color Doppler and spectral images recorded. LIMITATIONS: None. FINDINGS: The patient has a history of a left Bartholin gland cyst treated with Word catheter. Ultrasound of the left labia was performed. There is a persistent heterogeneous fluid collection in the left labia extending from the skin surface into the deeper tissues along the left perineum. Alyssa ection measures at least 4 x 2 cm in size (was about 2.6 cm in greatest diameter on CT exam 8). This finding was discussed with Dr. Woodward IMPRESSION: Increase in size of left Bartholin's cyst/abscess compared to CT 03/21/2018. Short segm ent of drainage catheter is identified in the superficial aspect of this abscess. Deeper pelvic exte nsion could not be excluded. Consider CT for followup. Findings discussed with the emergency room a ttending physician TECHNICAL DOCUMENTATION: JOB ID: [id number] [employer]- All Rights Reserved Reading location - IP/workstation name: [email or web address]
[2018-06-06 16:59] LABS: ANION GAP 6 (5-19); BLOOD UREA NITROGEN 18 mg/dL (7-20); CALCIUM 9.6 mg/dL (8.4-10.2); CARBON DIOXIDE 27 mmol/L (22-30); CHLORIDE 105 mmol/L (98-107); GLUCOSE 97 mg/dL (75-110); POTASSIUM 4.5 mmol/L (3.6-5.0); SODIUM 138.3 mmol/L (137-145)
[2018-06-06] MEDS ORDERED: CEFOXITIN 1 GM/D5W RTU 1 GM/50 ML RTUPB IV ONE (18:04)
[2018-06-06] MEDS ORDERED: CLINDAMYCIN 600 MG/D5W RTU 600 MG/50 ML RTUPB IV SCH (18:30)
--- NOTE | 2018-06-06 19:08 | RADIOLOGY REPORT (SQ) ---
EXAM DESCRIPTION: CT ABD/PELVIS WITH IV ONLY COMPLETED DATE/TIME: 06/06/2018 6:11 pm REASON FOR STUDY: Extensive abscess seen on ultrasound COMPARISON: Ultrasound 06/06/2018 CT 03/21/2018 TECHNIQUE: CT scan of the abdomen and pelvis performed using helical scanning technique with dynamic intravenous contrast injection. No oral contrast. Images reviewed with lung, soft tissue, and bone windows. Reconstructed coronal and sagittal MPR images reviewed. Delayed images for evaluation of the urinary system also acquired. All images stored on PACS. All CT scanners at this facility use dose modulation, iterative reconstruction, and/or weight based d osing when appropriate to reduce radiation dose to as low as reasonably achievable (ALARA). [facility]: Dose Right [facility]: CareDose [facility]: Dose Right [facility]: Teradose 4D [facility]: [employer] CONTRAST TYPE AND DOSE: contrast/concentration: Isovue 350.00 mg/ml; Total Contrast Delivered: 67.0 ml; Total Saline Delivered: 65.0 ml RENAL FUNCTION: BUN 18 creatinine 0.66 RADIATION DOSE: CT Rad equipment meets quality standard of care and radiation dose reduction techniq ues were employed. CTDIvol: 5.0 - 6.3 mGy. DLP: 582 mGy-cm.. LIMITATIONS: None. FINDINGS: LOWER CHEST: No significant findings. No nodules or infiltrates. LIVER: Normal size. No masses. No dilated ducts. SPLEEN: Normal size. No focal lesions. PANCREAS: No masses. No significant calcifications. No adjacent inflammation or peripancreatic fluid collections. Pancreatic duct not dilated. GALLBLADDER: No identified stones by CT criteria. No inflammatory changes to suggest cholecystitis. ADRENAL GLANDS: No significant masses or asymmetry. RIGHT KIDNEY AND URETER: No solid masses. No significant calcifications. No hydronephrosis or hyd roureter. LEFT KIDNEY AND URETER: No solid masses. No significant calcifications. No hydronephrosis or hydr oureter. AORTA AND VESSELS: No aneurysm. No dissection. Renal arteries, SMA, celiac without stenosis. RETROPERITONEUM: No retroperitoneal adenopathy, hemorrhage or masses. BOWEL AND PERITONEAL CAVITY: No masses or inflammatory changes. No free fluid or peritoneal masses. APPENDIX: Not identified. PELVIS: No mass. No free fluid. Normal bladder. ABDOMINAL WALL: No masses. No hernias. BONES: No significant or acute findings. OTHER: Multilocular cystic lesion in the left labium. This measures 33 by 20 mm on image 89 series 3 . IMPRESSION: Likely Bartholin's duct abscess. At least 2 of the cystic areas are confluent. There i s no air in the soft tissues. TECHNICAL DOCUMENTATION: JOB ID: [id number] Quality ID # [id number]: Final reports with documentation of one or more dose reduction techniques (e.g., Au tomated exposure control, adjustment of the mA and/or kV according to patient size, use of iterative reconstruction technique) 2010 [employer]- All Rights Reserved Reading location - IP/workstation name: [email or web address]
[2018-06-06] MEDS ORDERED: HYDROMORPHONE HCL INJ/PF 2 MG/ML AMPULE IV ONE (19:12)
[2018-06-06] MEDS ORDERED: GENTAMICIN SULFATE INJ 80 MG/2 ML VIAL IV ONE (20:27)
--- NOTE | 2018-06-06 20:34 | PDOC H&P ---
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 She was seen several times previously this year in the ER and word catheter placed and was supposed to f/u in the office for scheduling of cyst excision but due to insurance constraints has been unable to do so. She does have [facility] care coverage through the hospital. She reports that social situation should improve soon with insurance due to divorce and then remarriage so hopefully will have insurance in a month or so. She was counseled again regarding smoking cessation. Most recently she has been in the ER approximately 4 times due to left batholins gland abscess this month and had word catheer placed on 05/19. CT scan and US obtained in the ER. Upon evaluation patient in in bed with boyfriend. Past Medical History Gynecological Infection: Yes Pulmonary Medical History: Denies: Asthma, Bronchitis, Chronic Obstructive Pulmonary Disease (COPD), Pneumonia Neurological Medical History: Reports: Seizures Malignancy Medical History: Reports: Cervical Cancer GI Medical History: Reports: Hiatal Hernia, Ulcerative Colitis Musculoskeltal Medical History: Reports: Arthritis, Fibromyalgia Psychiatric Medical History: Reports: Bipolar Disorder - anxiety and depression, Depression Past Surgical History Past Surgical History: Reports: Hysterectomy, Other - right bartholins gland cyst excision, reports greater than 40 word cath lt Denies: Pacemaker Social History Information Source: Patient Lives with: Spouse/Significant other Smoking Status: Current Every Day Smoker Frequency of Alcohol Use: Social Hx Recreational Drug Use: Yes Drugs: Marijuana Hx Prescription Drug Abuse: No Family History Family History: Arthritis, CAD, COPD, CVA, DM, Hyperlipidemia, Hypertension, Malignancy, Other Parental Family History Reviewed: No Children Family History Reviewed: NA Sibling(s) Family History Reviewed.: NA Medication/Allergy Allergies/Adverse Reactions: ibuprofen [Ibuprofen] Allergy (Severe, Verified 06/06/18 11:12) throat swells, itching blotches aspirin Allergy (Verified 06/06/18 11:12) Review of Systems Constitutional: ABSENT: chills, fever(s), headache(s), weight gain, weight loss Psychiatric: ABSENT: anxiety, depression, homidical ideation, suicidal ideation Endocrine: ABSENT: cold intolerance, heat intolerance, polydipsia, polyuria Hematologic/Lymphatic: ABSENT: easy bleeding, easy bruising Physical Exam - Physical Exam Vital Signs: Temp Pulse Resp BP Pulse Ox 98.3 F 80 20 110/66 98 06/06/18 19:40 06/06/18 11:21 06/06/18 19:40 06/06/18 19:40 06/06/18 19:40 Intake & Output 06/05/18 06/06/18 06/07/18 06:59 06:59 06:59 Intake Total 50 Balance 50 Weight 59.1 kg General appearance: PRESENT: no acute distress, well-developed, well-nourished Head exam: PRESENT: atraumatic, normocephalic Cardiovascular exam: PRESENT: RRR. ABSENT: diastolic murmur, rubs, systolic murmur Vascular exam: PRESENT: normal capillary refill GI/Abdominal exam: PRESENT: normal bowel sounds, soft. ABSENT: distended, guarding, mass, organolmegaly, rebound, tenderness Rectal exam: PRESENT: deferred Extremities exam: PRESENT: full ROM. ABSENT: calf tenderness, clubbing, pedal edema Musculoskeletal exam: PRESENT: ambulatory Neurological exam: PRESENT: alert, awake, oriented to person, oriented to place, oriented to time, oriented to situation, CN II-XII grossly intact. ABSENT: motor sensory deficit Psychiatric exam: PRESENT: appropriate affect, normal mood. ABSENT: homicidal ideation, suicidal ideation Skin exam: PRESENT: dry, intact, warm. ABSENT: cyanosis, rash - Gynecological Exam Labia: other - 3x3 area induration and erythema, sig ttp with word catheter in place Result Laboratory Results: 06/06/18 12:59 06/06/18 12:59 06/06/18 06/06/18 12:59 12:59 WBC 8.0 RBC 4.46 Hgb 14.2 Hct 41.5 MCV 93 MCH 31.9 MCHC 34.3 RDW 13.6 Plt Count 323 Seg Neutrophils % 45.6 Lymphocytes % 45.3 H Monocytes % 4.7 Eosinophils % 3.3 Basophils % 1.1 Absolute Neutrophils 3.7 Absolute Lymphocytes 3.6 Absolute Monocytes 0.4 Absolute Eosinophils 0.3 Absolute Basophils 0.1 Sodium 138.3 Potassium 4.5 Chloride 105 Carbon Dioxide 27 Anion Gap 6 BUN 18 Creatinine 0.66 Est GFR ( Amer) > 60 Est GFR (Non-Af Amer) > 60 Glucose 97 Calcium 9.6 Impressions: Pelvis Ultrasound 06/06/18 14:35 IMPRESSION: Increase in size of left Bartholin's cyst/abscess compared to CT 03/21/2018. Short segment of drainage catheter is identified in the superficial aspect of this abscess. Deeper pelvic extension could not be excluded. Consider CT for followup. Findings discussed with the emergency room attending physician Abdomen/Pelvis CT 06/06/18 16:22 IMPRESSION: Likely Bartholin's duct abscess. At least 2 of the cystic areas are confluent. There is no air in the soft tissues. Status: Imported from PACS Assessment & Plan - Diagnosis (1) Left genital labial abscess Is this a current diagnosis for this admission?: Yes Plan: This abscess appears to have started as bartholins gland abscess which was initially drained on 05/19 with word catheter placement. She has now been to the ER for evaluation 4 times this month. Now abscess appeas to the loculated and with area new cystic area behind primary two congruent areas. Reviewed NPO status with patient and ABx overnight. Reviewed with patient that would recommend possible drainage in the OR due to persistent and worsening abscess despite Word catheter. May need 24 hours of IV abx 1st. Will re-evaluate in am to decide if OR in the am or IV abx for 24 hours then OR on Monday. Pt verbalized understanding with plan of care. - Time Time Spent: 30 to 50 Minutes Critical Time spent with patient: Less than 15 minutes Smoking Cessation Education: 3 to 10 minutes Medications reviewed and adjusted accordingly: Yes Anticipated discharge: Home Within: within 48 hours - Inpatient Certification Based on my medical assessment, after consideration of the patient's comorbidities, presenting symptoms, or acuity I expect that the services needed warrant INPATIENT care.: Yes I certify that my determination is in accordance with my understanding of Medicare's requirements for reasonable and necessary INPATIENT services [42 CFR 412.3e].: Yes Medical Necessity: Need For IV Fluids, Need for Pain Control, Need for IV Antibiotics, Need for Surgery
[2018-06-06] MEDS ORDERED: GENTAMICIN SULFATE 120 MG in DEXTROSE 5%-WATER 100 ML IV ONE (22:00)
[2018-06-06] MEDS ORDERED: GENTAMICIN SULFATE INJ 80 MG/2 ML VIAL IV SCH (22:00)
[2018-06-06] MEDS ORDERED: CLINDAMYCIN 900 MG/D5W RTU 900 MG/50 ML RTUPB IV SCH (22:00)
[2018-06-06 22:03] LABS: CHLAM PCR NOT DETECTED (NOT DETECT); GON PCR NOT DETECTED (NOT DETECT)
[2018-06-06] MEDS: HYDROCODONE/ACETAMINOPHEN 5-325 MG TABLET PO PRN (23:15)
[2018-06-07] MEDS: HYDROCODONE/ACETAMINOPHEN 5-325 MG TABLET PO PRN ×3 (05:05→18:07)
[2018-06-07] MEDS: CLINDAMYCIN 900 MG/D5W RTU 900 MG/50 ML RTUPB IV SCH ×3 (05:06→22:19)
[2018-06-07] MEDS: GENTAMICIN SULFATE 90 MG in DEXTROSE 5%-WATER 100 ML IV SCH ×3 (06:27→23:30)
[2018-06-07] MEDS ORDERED: RINGERS SOLUTION,LACTATED 2,000 ML IV ONE (11:00)
[2018-06-07] MEDS ORDERED: HYDROMORPHONE HCL INJ/PF 2 MG/ML AMPULE ONE (13:34)
[2018-06-07] MEDS: RINGERS SOLUTION,LACTATED 1,000 ML IV PRN (13:50)
[2018-06-07] MEDS: NICOTINE 21 MG/24 HR PATCH.TD24 TD SCH (13:50)
--- NOTE | 2018-06-07 15:06 | PDOC PROGRESS REPORT ---
Subjective Progress Note for:: 06/07/18 Subjective:: Patient states that she is in a lot of pain in her genital area; states that the pain is throbbing in nature and she has a lot of burning when she voids. Patient has been having some nausea and vomiting; She denies fever/chills. Reason For Visit: BARTHOLINS GLAND ABSCESS Physical Exam - Physical Exam Vital Signs: Temp Pulse Resp BP Pulse Ox 98.3 F 52 L 14 98/58 L 99 06/07/18 11:37 06/07/18 11:37 06/07/18 11:37 06/07/18 11:37 06/07/18 11:37 Intake & Output 06/06/18 06/07/18 06/08/18 06:59 06:59 06:59 Intake Total 200 202.25 Balance 200 202.25 Weight 59.1 kg General appearance: PRESENT: no acute distress Respiratory exam: PRESENT: clear to auscultation trevon GI/Abdominal exam: PRESENT: normal bowel sounds, soft Extremities exam: ABSENT: calf tenderness, clubbing, full ROM, joint swelling, pedal edema, tenderness, +1 edema, +2 edema, other - Gynecological Exam Labia: other - 3x3 area induration and erythema, sig ttp with word catheter in place Perineum: masses - follicular cyst/abscess on the left--firm with ingrown hairs Result Laboratory Results: 06/06/18 12:59 06/06/18 12:59 06/06/18 12:59 Sodium 138.3 Potassium 4.5 Chloride 105 Carbon Dioxide 27 Anion Gap 6 BUN 18 Creatinine 0.66 Est GFR ( Amer) > 60 Est GFR (Non-Af Amer) > 60 Glucose 97 Calcium 9.6 Impressions: Pelvis Ultrasound 06/06/18 14:35 IMPRESSION: Increase in size of left Bartholin's cyst/abscess compared to CT 03/21/2018. Short segment of drainage catheter is identified in the superficial aspect of this abscess. Deeper pelvic extension could not be excluded. Consider CT for followup. Findings discussed with the emergency room attending physician Abdomen/Pelvis CT 06/06/18 16:22 IMPRESSION: Likely Bartholin's duct abscess. At least 2 of the cystic areas are confluent. There is no air in the soft tissues. Assessment & Plan - Diagnosis (1) Left genital labial abscess Is this a current diagnosis for this admission?: Yes - Time Time Spent with patient: 15-24 minutes Anticipated discharge: Home Within: within 24 hours - Plan Summary Plan Summary: 1. Continue antibiotics 2. Possible plan for surgery tomorrow 3. NPO after midnight 4. Start sitz baths
[2018-06-07] MEDS: PROMETHAZINE HCL INJ 25 MG/1 ML VIAL IV PRN ×2 (15:32→22:40)
[2018-06-07] MEDS: HYDROMORPHONE HCL INJ/PF 2 MG/ML AMPULE IV PRN (20:20)
[2018-06-08] MEDS: HYDROMORPHONE HCL INJ/PF 2 MG/ML AMPULE IV PRN ×5 (02:12→15:39)
[2018-06-08] MEDS: CLINDAMYCIN 900 MG/D5W RTU 900 MG/50 ML RTUPB IV SCH ×3 (05:37→21:56)
[2018-06-08] MEDS: GENTAMICIN SULFATE 90 MG in DEXTROSE 5%-WATER 100 ML IV SCH ×3 (06:33→23:28)
[2018-06-08] MEDS: PROMETHAZINE HCL INJ 25 MG/1 ML VIAL IV PRN ×3 (08:21→22:39)
[2018-06-08] MEDS: HYDROCODONE/ACETAMINOPHEN 5-325 MG TABLET PO PRN (08:28)
[2018-06-08] MEDS: NICOTINE 21 MG/24 HR PATCH.TD24 TD SCH (09:45)
--- NOTE | 2018-06-08 10:00 | PDOC PROGRESS REPORT ---
Subjective Progress Note for:: 06/08/18 Subjective:: still having significant pain. has not drained as yet Reason For Visit: BARTHOLINS GLAND ABSCESS Physical Exam - Physical Exam Vital Signs: Temp Pulse Resp BP Pulse Ox 98.3 F 98 18 95/47 L 98 06/08/18 08:45 06/08/18 08:45 06/08/18 08:45 06/08/18 08:45 06/08/18 08:45 Intake & Output 06/07/18 06/08/18 06/09/18 06:59 06:59 06:59 Intake Total 200 1486.75 Balance 200 1486.75 Weight 59.1 kg General appearance: PRESENT: no acute distress, cooperative - Gynecological Exam Labia: masses, tender - 3 cm bartholin's cyst with minimal tracking to buttock. left side, other - 3x3 area induration and erythema, sig ttp with word catheter in place Perineum: masses - follicular cyst/abscess on the left--firm with ingrown hairs Result Laboratory Results: 06/06/18 12:59 06/08/18 05:38 06/08/18 05:38 Creatinine 0.59 Est GFR ( Amer) > 60 Est GFR (Non-Af Amer) > 60 Impressions: Pelvis Ultrasound 06/06/18 14:35 IMPRESSION: Increase in size of left Bartholin's cyst/abscess compared to CT 03/21/2018. Short segment of drainage catheter is identified in the superficial aspect of this abscess. Deeper pelvic extension could not be excluded. Consider CT for followup. Findings discussed with the emergency room attending physician Abdomen/Pelvis CT 06/06/18 16:22 IMPRESSION: Likely Bartholin's duct abscess. At least 2 of the cystic areas are confluent. There is no air in the soft tissues. Assessment & Plan - Diagnosis (1) Left genital labial abscess Is this a current diagnosis for this admission?: Yes - Time Time Spent with patient: 15-24 minutes Anticipated discharge: Home Within: within 48 hours - Inpatient Certification Based on my medical assessment, after consideration of the patient's comorbidities, presenting symptoms, or acuity I expect that the services needed warrant INPATIENT care.: Yes I certify that my determination is in accordance with my understanding of Medicare's requirements for reasonable and necessary INPATIENT services [42 CFR 412.3e].: Yes Medical Necessity: Need Close Monitoring Due to Risk of Patient Decompensation, Need for Pain Control, Need for IV Antibiotics, Need for Surgery - Plan Summary Plan Summary: will proceed today with I&D in the OR and placement of DESEAN drain. continue ABX and sitz baths. will plan for discharge sometime around Monday AM.
[2018-06-08] MEDS ORDERED: DEXAMETHASONE SOD PHOSPHATE INJ 4 MG/1 ML VIAL ONE (10:47)
[2018-06-08] MEDS ORDERED: KETOROLAC TROMETHAMINE 60 MG/2 ML SDV ONE (10:47)
[2018-06-08] MEDS ORDERED: SUCCINYLCHOLINE CHLORIDE INJ 200 MG/10 ML VIAL ONE (10:47)
[2018-06-08] MEDS: RINGERS SOLUTION,LACTATED 1,000 ML IV PRN ×2 (11:08→21:00)
[2018-06-08 16:24] LABS: GENTAMICIN-PEAK 1.1 ug/mL (5.0-10.0)
[2018-06-08] MEDS ORDERED: BUPIVACAINE HCL 0.25% /EPINEPHRINE INJ/PF 30 ML SDV ONE (18:06)
[2018-06-08] MEDS ORDERED: ONDANSETRON HCL INJ/PF 4 MG/2 ML SDV ONE (18:07)
[2018-06-08] MEDS ORDERED: MIDAZOLAM 2 MG/2 ML INJ ONE (18:07)
[2018-06-08] MEDS ORDERED: FENTANYL CITRATE INJ/PF 100 MCG/2 ML AMPUL ONE (18:07)
[2018-06-08] MEDS ORDERED: PROPOFOL INJ 200 MG/20 ML VIAL IV ONE (18:07)
[2018-06-08] MEDS ORDERED: HYDROMORPHONE HCL INJ/PF 2 MG/ML AMPULE ONE (19:16)
[2018-06-08] MEDS ORDERED: MEPERIDINE HCL/PF INJ 25 MG/1 ML DISP.SYRIN IV PRN (19:18)
[2018-06-08] MEDS ORDERED: PROMETHAZINE HCL INJ 25 MG/1 ML VIAL IV PRN ×2 (19:18)
[2018-06-08] MEDS ORDERED: ONDANSETRON HCL INJ/PF 4 MG/2 ML SDV IV PRN (19:18)
[2018-06-08] MEDS ORDERED: DIPHENHYDRAMINE HCL 50 MG/ML VIAL IV PRN (19:18)
[2018-06-08] MEDS ORDERED: FENTANYL CITRATE INJ/PF 100 MCG/2 ML AMPUL IV PRN ×3 (19:18)
[2018-06-08] MEDS ORDERED: OXYCODONE-ACETAMINOPHEN 5-325 MG TABLET PO PRN ×3 (19:18→20:41)
[2018-06-08] MEDS: FENTANYL CITRATE INJ/PF 100 MCG/2 ML AMPUL ONE ×2 (20:20→20:25)
[2018-06-08] MEDS ORDERED: SIMETHICONE 80 MG TAB.CHEW PO PRN (20:41)
[2018-06-08] MEDS ORDERED: ACETAMINOPHEN 325 MG TABLET PO PRN (20:41)
[2018-06-08] MEDS ORDERED: ACETAMINOPHEN 1,000 MG/100 ML RTUPB IV PRN (20:41)
[2018-06-08] MEDS: MORPHINE SULFATE 10 MG/ML INJ IV PRN (21:56)
[2018-06-08] MEDS ORDERED: KETOROLAC TROMETHAMINE INJ/PF 30 MG/1 ML SDV IV SCH (22:00)
[2018-06-08] MEDS: OXYCODONE-ACETAMINOPHEN 5-325 MG TABLET PO PRN (23:41)
[2018-06-09] MEDS: MORPHINE SULFATE 10 MG/ML INJ IV PRN ×4 (02:01→17:57)
[2018-06-09] MEDS: CLINDAMYCIN 900 MG/D5W RTU 900 MG/50 ML RTUPB IV SCH ×3 (05:16→21:29)
[2018-06-09] MEDS: OXYCODONE-ACETAMINOPHEN 5-325 MG TABLET PO PRN ×3 (05:19→23:56)
[2018-06-09] MEDS: RINGERS SOLUTION,LACTATED 1,000 ML IV PRN (05:21)
[2018-06-09] MEDS: PROMETHAZINE HCL INJ 25 MG/1 ML VIAL IV PRN ×3 (05:45→21:30)
[2018-06-09] MEDS: GENTAMICIN SULFATE 90 MG in DEXTROSE 5%-WATER 100 ML IV SCH ×3 (06:34→21:35)
[2018-06-09 06:37] LABS: HEMATOCRIT 36.7 % (36.0-47.0); HEMOGLOBIN 12.7 g/dL (12.0-15.5); MEAN CORPUSCULAR HEMOGLOBIN 32.2 pg (27.0-33.4); MEAN CORPUSCULAR HGB CONC 34.6 g/dL (32.0-36.0); MEAN CORPUSCULAR VOLUME 93 fl (80-97); PLATELET COUNT 263 10^3/uL (150-450); RED BLOOD COUNT 3.94 10^6/uL (3.72-5.28); WHITE BLOOD COUNT 10.7 10^3/uL (4.0-10.5)
--- NOTE | 2018-06-09 07:49 | PDOC PROGRESS REPORT ---
Subjective Progress Note for:: 06/09/18 Subjective:: doing well. appropriate post op pain Reason For Visit: LEFT GENITAL LABIAL ABSCESS Physical Exam - Physical Exam Vital Signs: Temp Pulse Resp BP Pulse Ox 98.4 F 67 17 107/64 98 06/09/18 02:20 06/09/18 04:48 06/09/18 02:20 06/09/18 05:18 06/09/18 04:48 Intake & Output 06/08/18 06/09/18 06/10/18 06:59 06:59 06:59 Intake Total 2486.75 4296.75 Output Total 90 Balance 2486.75 4206.75 Weight 50.4 kg General appearance: PRESENT: no acute distress, cooperative - DESEAN drain output approx 40 cc x 2 - Gynecological Exam Labia: masses, tender - 3 cm bartholin's cyst with minimal tracking to buttock. left side, other - 3x3 area induration and erythema, sig ttp with word catheter in place Perineum: masses - follicular cyst/abscess on the left--firm with ingrown hairs Result Laboratory Results: 06/09/18 06:18 06/08/18 05:38 06/09/18 06:18 WBC 10.7 H RBC 3.94 Hgb 12.7 Hct 36.7 MCV 93 MCH 32.2 MCHC 34.6 RDW 13.0 Plt Count 263 Impressions: Pelvis Ultrasound 06/06/18 14:35 IMPRESSION: Increase in size of left Bartholin's cyst/abscess compared to CT 03/21/2018. Short segment of drainage catheter is identified in the superficial aspect of this abscess. Deeper pelvic extension could not be excluded. Consider CT for followup. Findings discussed with the emergency room attending physician Abdomen/Pelvis CT 06/06/18 16:22 IMPRESSION: Likely Bartholin's duct abscess. At least 2 of the cystic areas are confluent. There is no air in the soft tissues. Assessment & Plan - Diagnosis (1) Left genital labial abscess Is this a current diagnosis for this admission?: Yes - Time Time Spent with patient: Less than 15 minutes Medications reviewed and adjusted accordingly: Yes Anticipated discharge: Home Within: within 48 hours - Inpatient Certification Based on my medical assessment, after consideration of the patient's roxana rbidities, presenting symptoms, or acuity I expect that the services needed warrant INPATIENT care.: Yes I certify that my determination is in accordance with my understanding of Medicare's requirements for reasonable and necessary INPATIENT services [42 CFR 412.3e].: Yes Medical Necessity: Need For IV Fluids, Need for Pain Control, Need for IV Antibiotics - Plan Summary Plan Summary: discussed with patient need for continued antibiotics based on surgical findings. encouraged continued warm/cold compresses and gentle massage of the cellulitic area. drainage needs to reduce to 10 cc or less before considering discharge
--- NOTE | 2018-06-09 08:43 | OPERATIVE REPORT E ---
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 POSTOPERATIVE DIAGNOSIS: Bartholin's abscess. SURGEON: VELASQUEZ ESTRADA M.D. ANESTHESIA: *------* and Talat Molina with general. FINDINGS: A 3-5 cm cellulitic Bartholin's gland abscess on the left labia. A large pocket of purulent fluid found during dissection. Hardened cellulitic area of the gluteus with no fluctuance, did not release any fluid with probing. COMPLICATIONS: None. ESTIMATED BLOOD LOSS: Approximately 50 mL. PATHOLOGY: Bartholin's gland was sent as well as culture. PROCEDURE: Excision of Bartholin's gland and incision and drainage of Bartholin's gland abscess. PROCEDURE IN DETAIL: The patient was taken to the operating room and prepared and draped in a normal sterile fashion in the dorsal lithotomy position. The exam was performed and the abscess was located with palpation. I injected approximately 10 mL of lidocaine with epi into the area for excision. A 15 blade was then used to open the previous area of incision and drainage and locate the Bartholin's gland. The Bartholin's gland was grasped with 2 Allis' and was carefully dissected away with Metzenbaum's. During dissection, there was incidental perforation of the labia majora in 3 small areas. I continued with dissection of the gland and did encounter a pocket of purulent fluid, which was evacuated and the gland was then amputated once this pocket was completely identified and emptied. The defect was then closed in layers using 3-0 Vicryl. A DESEAN drain was placed prior to closure and sewn in place with 2 silk ties. The skin was then secured with 3-0 Vicryl in a running fashion. The labial defects were then repaired with interrupted 3-0 Vicryl sutures in all 3 places with good hemostasis. The DESEAN drain was then placed to suction with the bulb. The patient tolerated the procedure well. Sponge, lap, and needle counts were correct x2, and the patient was taken to recovery in stable condition. DICTATING PHYSICIAN: VELASQUEZ ESTRADA M.D. [id number] Y#: [id number] ID: [id number] JOB#: [id number] ACCT: [id number] cc:VELASQUEZ ESTRADA M.D. >
[2018-06-09] MEDS: PRENATAL VITAMIN W DHA CAPSULE PO SCH (10:49)
[2018-06-09] MEDS: NICOTINE 21 MG/24 HR PATCH.TD24 TD SCH (10:49)
[2018-06-09] MEDS: DOCUSATE SODIUM 100 MG CAPSULE PO SCH ×2 (10:49→17:56)
[2018-06-09 14:34] LABS: GENTAMICIN-TROUGH 1.3 ug/mL (<2.0)
[2018-06-09 17:20] LABS: GENTAMICIN-PEAK 5.6 ug/mL (5.0-10.0)
[2018-06-09] MEDS: HYDROMORPHONE HCL INJ/PF 2 MG/ML AMPULE IV PRN (20:23)
[2018-06-10] MEDS: GENTAMICIN SULFATE 90 MG in DEXTROSE 5%-WATER 100 ML IV SCH (05:30)
[2018-06-10] MEDS: HYDROMORPHONE HCL INJ/PF 2 MG/ML AMPULE IV PRN ×6 (05:30→22:08)
[2018-06-10] MEDS: CLINDAMYCIN 900 MG/D5W RTU 900 MG/50 ML RTUPB IV SCH ×3 (05:31→22:08)
--- NOTE | 2018-06-10 08:36 | PDOC PROGRESS REPORT ---
Subjective Progress Note for:: 06/10/18 Subjective:: doing better, afebrile, still with pain in left buttocks Reason For Visit: LEFT GENITAL LABIAL ABSCESS Physical Exam - Physical Exam Vital Signs: Temp Pulse Resp BP Pulse Ox 98.4 F 72 17 99/62 L 99 06/10/18 08:01 06/10/18 08:01 06/10/18 08:01 06/10/18 08:01 06/10/18 08:01 Intake & Output 06/09/18 06/10/18 06/11/18 06:59 06:59 06:59 Intake Total 4296.75 2576.50 152.25 Output Total 90 40 Balance 4206.75 2536.50 152.25 Weight 50.4 kg 49.7 kg General appearance: PRESENT: no acute distress, well-developed, well-nourished Head exam: PRESENT: atraumatic, normocephalic Neck exam: PRESENT: full ROM. ABSENT: carotid bruit, JVD, lymphadenopathy, thyromegaly Respiratory exam: PRESENT: clear to auscultation trevon, symmetrical, unlabored Cardiovascular exam: PRESENT: RRR. ABSENT: diastolic murmur, rubs, systolic murmur Pulses: PRESENT: normal dorsalis pedis pul, +2 pedal pulses bilateral Vascular exam: PRESENT: normal capillary refill GI/Abdominal exam: PRESENT: normal bowel sounds, soft. ABSENT: distended, guarding, mass, organolmegaly, rebound, tenderness Rectal exam: PRESENT: deferred Gentrourinary exam: PRESENT: other - swelling in left buttocks is stable. Extremities exam: PRESENT: full ROM. ABSENT: calf tenderness, clubbing, pedal edema Musculoskeletal exam: PRESENT: ambulatory Neurological exam: PRESENT: alert, awake, oriented to person, oriented to place, oriented to time, oriented to situation, CN II-XII grossly intact. ABSENT: motor sensory deficit Psychiatric exam: PRESENT: appropriate affect, normal mood. ABSENT: homicidal ideation, suicidal ideation Skin exam: PRESENT: dry, intact, warm. ABSENT: cyanosis, rash - Gynecological Exam Labia: masses, tender - 3 cm bartholin's cyst with minimal tracking to buttock. left side, other - 3x3 area induration and erythema, sig ttp with word catheter in place Perineum: masses - follicular cyst/abscess on the left--firm with ingrown hairs Result Laboratory Results: 06/09/18 06:18 06/08/18 05:38 Impressions: Pelvis Ultrasound 06/06/18 14:35 IMPRESSION: Increase in size of left Bartholin's cyst/abscess compared to CT 03/21/2018. Short segment of drainage catheter is identified in the superficial aspect of this abscess. Deeper pelvic extension could not be excluded. Consider CT for followup. Findings discussed with the emergency room attending physician Abdomen/Pelvis CT 06/06/18 16:22 IMPRESSION: Likely Bartholin's duct abscess. At least 2 of the cystic areas are confluent. There is no air in the soft tissues. Status: Imported from PACS Assessment & Plan - Diagnosis (1) Left genital labial abscess Is this a current diagnosis for this admission?: Yes Plan: Abscess drained on Monday in OR. Cont abx. DESEAN drain is still putting out approx 10cc q shift. Pain control doing well. Will not likely be able to go home until Monday or Monday - Time Time Spent with patient: 15-24 minutes Medications reviewed and adjusted accordingly: Yes Anticipated discharge: Home Within: within 72 hours - Inpatient Certification Based on my medical assessment, after consideration of the patient's comorbidities, presenting symptoms, or acuity I expect that the services needed warrant INPATIENT care.: Yes I certify that my determination is in accordance with my understanding of Medicare's requirements for reasonable and necessary INPATIENT services [42 CFR 412.3e].: Yes Medical Necessity: Need For IV Fluids, Need for Pain Control, Need for IV Anti biotics Post Hospital Care: D/C Campus Security Officer Documentation
[2018-06-10] MEDS: PRENATAL VITAMIN W DHA CAPSULE PO SCH (09:15)
[2018-06-10] MEDS: DOCUSATE SODIUM 100 MG CAPSULE PO SCH ×2 (09:15→17:00)
[2018-06-10] MEDS: NICOTINE 21 MG/24 HR PATCH.TD24 TD SCH (09:15)
[2018-06-10 12:01] LABS: ABSOLUTE BASOPHILS # (AUTO) 0.3 10^3/uL (0.0-0.2); ABSOLUTE EOSINOPHILS # (AUTO) 0.4 10^3/uL (0.0-0.6); ABSOLUTE LYMPHOCYTES (AUTO) 5.8 10^3/uL (0.5-4.7); ABSOLUTE MONOCYTES (AUTO) 0.6 10^3/uL (0.1-1.4); ABSOLUTE NEUT (AUTO) 6.7 10^3/uL (1.7-8.2); EOSINOPHILS % (AUTO) 3.3 % (0-6); HEMATOCRIT 37.9 % (36.0-47.0); HEMOGLOBIN 12.9 g/dL (12.0-15.5); MEAN CORPUSCULAR HEMOGLOBIN 31.7 pg (27.0-33.4); MEAN CORPUSCULAR HGB CONC 33.9 g/dL (32.0-36.0); MEAN CORPUSCULAR VOLUME 94 fl (80-97); MONOCYTES % (AUTO) 4.2 % (3-13); PLATELET COUNT 286 10^3/uL (150-450); RED BLOOD COUNT 4.06 10^6/uL (3.72-5.28); RED CELL DISTRIBUTION WIDTH 13.6 % (11.5-14.0); SEGMENTED NEUTROPHILS % (AUTO) 48.5 % (42-78); TOTAL CELLS COUNTED % (AUTO) 100 %; WHITE BLOOD COUNT 13.7 10^3/uL (4.0-10.5)
[2018-06-10 12:18] LABS: ALANINE AMINOTRANSFERASE 15 U/L (9-52); ALBUMIN 4.5 g/dL (3.5-5.0); ALKALINE PHOSPHATASE 52 U/L (38-126); ANION GAP 10 (5-19); ASPARTATE AMINO TRANSFERASE 17 U/L (14-36); BILIRUBIN,DIRECT 0.3 mg/dL (0.0-0.4); BILIRUBIN,TOTAL 0.4 mg/dL (0.2-1.3); BLOOD UREA NITROGEN 12 mg/dL (7-20); CALCIUM 9.7 mg/dL (8.4-10.2); CARBON DIOXIDE 28 mmol/L (22-30); CHLORIDE 100 mmol/L (98-107); GLUCOSE 97 mg/dL (75-110); SODIUM 138.3 mmol/L (137-145); TOTAL PROTEIN 7.3 g/dL (6.3-8.2)
[2018-06-10] MEDS: PROMETHAZINE HCL INJ 25 MG/1 ML VIAL IV PRN (13:09)
[2018-06-10] MEDS: GENTAMICIN SULFATE 120 MG in DEXTROSE 5%-WATER 100 ML IV SCH (14:58)
[2018-06-11] MEDS: OXYCODONE-ACETAMINOPHEN 5-325 MG TABLET PO PRN ×5 (00:16→23:19)
[2018-06-11] MEDS: GENTAMICIN SULFATE 120 MG in DEXTROSE 5%-WATER 100 ML IV SCH ×2 (02:28→15:31)
[2018-06-11] MEDS: HYDROMORPHONE HCL INJ/PF 2 MG/ML AMPULE IV PRN ×2 (04:28→07:48)
[2018-06-11] MEDS: CLINDAMYCIN 900 MG/D5W RTU 900 MG/50 ML RTUPB IV SCH ×3 (05:21→22:29)
[2018-06-11] MEDS: PRENATAL VITAMIN W DHA CAPSULE PO SCH (10:25)
[2018-06-11] MEDS: DOCUSATE SODIUM 100 MG CAPSULE PO SCH ×2 (10:25→17:31)
[2018-06-11] MEDS: NICOTINE 21 MG/24 HR PATCH.TD24 TD SCH (10:25)
[2018-06-11] MEDS ORDERED: ONDANSETRON HCL 8 MG TABLET PO PRN (10:39)
[2018-06-11] MEDS ORDERED: PROMETHAZINE HCL INJ 25 MG/1 ML VIAL IV PRN (11:30)
[2018-06-11] MEDS ORDERED: ONDANSETRON HCL 8 MG TABLET ONE (11:36)
[2018-06-11 15:31] LABS: GENTAMICIN-TROUGH 0.8 ug/mL (<2.0)
--- NOTE | 2018-06-11 18:17 | PDOC PROGRESS REPORT ---
Subjective Progress Note for:: 06/11/18 Subjective:: doing better, afebrile, still with pain in left buttocks, reports since dilaudid IV stopped Reason For Visit: LEFT GENITAL LABIAL ABSCESS Physical Exam - Physical Exam Vital Signs: Temp Pulse Resp BP Pulse Ox 97.9 F 64 16 90/56 L 97 06/11/18 07:09 06/11/18 07:09 06/11/18 07:09 06/11/18 07:09 06/11/18 07:09 Intake & Output 06/10/18 06/11/18 06/12/18 06:59 06:59 06:59 Intake Total 2576.50 1242.25 Output Total 40 17 Balance 2536.50 1225.25 Weight 49.7 kg 58.4 kg General appearance: PRESENT: no acute distress, well-developed, well-nourished Head exam: PRESENT: atraumatic, normocephalic Respiratory exam: PRESENT: clear to auscultation trevon, symmetrical, unlabored Cardiovascular exam: PRESENT: RRR. ABSENT: diastolic murmur, rubs, systolic murmur GI/Abdominal exam: PRESENT: normal bowel sounds, soft. ABSENT: distended, guarding, mass, organolmegaly, rebound, tenderness Rectal exam: PRESENT: deferred Musculoskeletal exam: PRESENT: ambulatory Neurological exam: PRESENT: alert, awake, oriented to person, oriented to place, oriented to time, oriented to situation, CN II-XII grossly intact. ABSENT: motor sensory deficit Skin exam: PRESENT: dry, intact, warm. ABSENT: cyanosis, rash - Gynecological Exam Labia: masses, tender - 3 cm bartholin's cyst with minimal tracking to buttock. left side, other - 3x3 area induration and erythema, sig ttp with word catheter in place Perineum: masses - follicular cyst/abscess on the left--firm with ingrown hairs Result Laboratory Results: 06/10/18 11:33 06/11/18 14:10 06/11/18 14:10 Creatinine 0.68 Est GFR ( Amer) > 60 Est GFR (Non-Af Amer) > 60 Impressions: Pelvis Ultrasound 06/06/18 14:35 IMPRESSION: Increase in size of left Bartholin's cyst/abscess compared to CT 03/21/2018. Short segment of drainage catheter is identified in the superficial aspect of this abscess. Deeper pelvic extension could not be excluded. Consider CT for followup. Findings discussed with the emergency room attending physician Abdomen/Pelvis CT 06/06/18 16:22 IMPRESSION: Likely Bartholin's duct abscess. At least 2 of the cystic areas are confluent. There is no air in the soft tissues. Status: Imported from PACS Assessment & Plan - Diagnosis (1) Left genital labial abscess Is this a current diagnosis for this admission?: Yes Plan: Abscess drained on Monday in OR. Cont abx. DESEAN drain is still putting out approx 5cc this last shift. likely able to take DESEAN out tomorrow. Dr. Faye looked at site this am and stable/improved. Will re-evaluate tomorrow. Likely not able to go home until Mon or Pain control less than adequate due to dilaudid IV discontinued. Pt however is able to go outside frequently to smoke. Discontinue nicotine patch. Dilaudid 2mg po Q 4 hour for breakthrough. - Time Time Spent with patient: 15-24 minutes Smoking Cessation Education: 3 to 10 minutes Medications reviewed and adjusted accordingly: Yes Anticipated discharge: Home Within: within 48 hours - Inpatient Certification Based on my medical assessment, after consideration of the patient's comorbidities, presenting symptoms, or acuity I expect that the services needed warrant INPATIENT care.: Yes I certify that my determination is in accordance with my understanding of Medicare's requirements for reasonable and necessary INPATIENT services [42 CFR 412.3e].: Yes Medical Necessity: Need for Pain Control, Need for IV Antibiotics
[2018-06-11] MEDS: HYDROMORPHONE HCL 2 MG TABLET PO PRN (20:55)
[2018-06-12] MEDS: GENTAMICIN SULFATE 120 MG in DEXTROSE 5%-WATER 100 ML IV SCH (02:52)
[2018-06-12] MEDS: HYDROMORPHONE HCL 2 MG TABLET PO PRN ×2 (02:52→10:25)
[2018-06-12] MEDS: CLINDAMYCIN 900 MG/D5W RTU 900 MG/50 ML RTUPB IV SCH (05:00)
[2018-06-12 06:33] LABS: ABSOLUTE EOSINOPHILS # (AUTO) 0.5 10^3/uL (0.0-0.6); ABSOLUTE LYMPHOCYTES (AUTO) 3.4 10^3/uL (0.5-4.7); ABSOLUTE MONOCYTES (AUTO) 0.7 10^3/uL (0.1-1.4); BASOPHILS % (AUTO) 0.3 % (0-2); EOSINOPHILS % (AUTO) 5.2 % (0-6); HEMATOCRIT 39.8 % (36.0-47.0); HEMOGLOBIN 13.7 g/dL (12.0-15.5); LYMPHOCYTES % (AUTO) 31.7 % (13-45); MEAN CORPUSCULAR HEMOGLOBIN 31.9 pg (27.0-33.4); MEAN CORPUSCULAR HGB CONC 34.4 g/dL (32.0-36.0); MEAN CORPUSCULAR VOLUME 93 fl (80-97); MONOCYTES % (AUTO) 6.4 % (3-13); PLATELET COUNT 210 10^3/uL (150-450); RED BLOOD COUNT 4.28 10^6/uL (3.72-5.28); RED CELL DISTRIBUTION WIDTH 13.2 % (11.5-14.0); SEGMENTED NEUTROPHILS % (AUTO) 56.4 % (42-78); TOTAL CELLS COUNTED % (AUTO) 100 %; WHITE BLOOD COUNT 10.6 10^3/uL (4.0-10.5)
[2018-06-12] MEDS: OXYCODONE-ACETAMINOPHEN 5-325 MG TABLET PO PRN ×2 (09:06→13:24)
[2018-06-12] MEDS: PRENATAL VITAMIN W DHA CAPSULE PO SCH (09:06)
[2018-06-12] MEDS: DOCUSATE SODIUM 100 MG CAPSULE PO SCH (09:07)
--- NOTE | 2018-06-12 10:23 | PDOC DISCHARGE SUMMARY ---
General - Admit/Disc Date/PCP Admission Date/Primary Care Provider: 06/08/18 12:54 Discharge Date: 06/12/18 - Discharge Diagnosis (1) Left genital labial abscess Is this a current diagnosis for this admission?: Yes - Additional Information Resuscitation Status: Full Code Home Medications: No Home Medications 06/07/18 History of Present Illness History of Present Illness: KYLER FARMER is a 32 year old female Hospital Course Hospital Course: patient underwent I&D of left bartholins abscess with DESEAN drain placement. Has had an unremarkable post op course with reduction of drain output appropriate. drain removed today after reducing to <10 cc in 24 hour period. Physical Exam - Physical Exam Vital Signs: Temp Pulse Resp BP Pulse Ox 98.4 F 101 H 18 104/69 96 06/12/18 08:46 06/12/18 08:46 06/12/18 08:46 06/12/18 08:46 06/12/18 08:46 Intake & Output 06/11/18 06/12/18 06/13/18 06:59 06:59 06:59 Intake Total 1242.25 350 Output Total 17 7 Balance 1225.25 343 Weight 58.4 kg General appearance: PRESENT: no acute distress, cooperative - Gynecological Exam Labia: masses, tender - 3 cm bartholin's cyst with minimal tracking to buttock. left side, other - echymosis appropriate for post op. cellulitic area reduced to < 1 cm at buttock. left labia swollen c/w post op Perineum: masses - follicular cyst/abscess on the left--firm with ingrown hairs Result Laboratory Results: 06/12/18 05:58 06/11/18 14:10 06/11/18 06/12/18 14:10 05:58 WBC 10.6 H RBC 4.28 Hgb 13.7 Hct 39.8 MCV 93 MCH 31.9 MCHC 34.4 RDW 13.2 Plt Count 210 Seg Neutrophils % 56.4 Lymphocytes % 31.7 Monocytes % 6.4 Eosinophils % 5.2 Basophils % 0.3 Absolute Neutrophils 6.0 Absolute Lymphocytes 3.4 Absolute Monocytes 0.7 Absolute Eosinophils 0.5 Absolute Basophils 0.0 Creatinine 0.68 Est GFR ( Amer) > 60 Est GFR (Non-Af Amer) > 60 06/06/18 19:56 Blood Blood Culture - Final NO GROWTH IN 5 DAYS 06/06/18 18:35 Blood Blood Culture - Final NO GROWTH IN 5 DAYS Impressions: Pelvis Ultrasound 06/06/18 14:35 IMPRESSION: Increase in size of left Bartholin's cyst/abscess compared to CT 03/21/2018. Short segment of drainage catheter is identified in the superficial aspect of this abscess. Deeper pelvic extension could not be excluded. Consider CT for followup. Findings discussed with the emergency room attending physician Abdomen/Pelvis CT 06/06/18 16:22 IMPRESSION: Likely Bartholin's duct abscess. At least 2 of the cystic areas are confluent. There is no air in the soft tissues. Plan Discharge Plan: discharge home with keflex. instructions for sitz baths. Pelvic rest until further notice. ice packs to perineum as needed for swelling Time Spent: Less than 30 Minutes
[2018-06-12 12:05] VITALS: BP 107/64
== END 2018-06-12 14:05 | disposition home or self-care (01) | DRG 747 ==
LOC: ER 11:08 → EH 20:16 → INTOOBSV 20:16 → 2N 22:06 → OBSVTOIN 06-08 12:54
PROVIDERS: ADMIT Student in an Organized Health Care Education/Training Program; ATTEND Student in an Organized Health Care Education/Training Program
PROC: 0UBL0ZZ Excision of Vestibular Gland, Open Approach (ICD-10-PCS; principal; 2018-06-08 17:00)
DX: N75.0 Cyst of Bartholin's gland (principal); Z90.710 Acquired absence of both cervix and uterus; Z85.41 Personal history of malignant neoplasm of cervix uteri; K44.9 Diaphragmatic hernia without obstruction or gangrene; F31.9 Bipolar disorder, unspecified; F41.9 Anxiety disorder, unspecified; F32.9 Major depressive disorder, single episode, unspecified; F17.200 Nicotine dependence, unspecified, uncomplicated; Z88.6 Allergy status to analgesic agent
CPT/HCPCS: 36415; 74177; 76857; 80048; 80053; 80170; 82565; 85025; 85027; 87040; 87070; 87075; 87205; 87491; 87591; 88305; 940; 94799; 96365; 96367; 96372; 96375; 99285; 99406; G0378; J0330; J0694; J1100; J1170; J1580; J1885; J2250; J2270; J2405; J2550; J2704; J3010; J3490; J7120; S0119

== ENCOUNTER 2018-06-20 14:06 | Observation (INO) | payer OTHER ==
[2018-06-20] MEDS: OXYCODONE-ACETAMINOPHEN 5-325 MG TABLET PO PRN ×2 (15:38→20:40)
[2018-06-20 15:46] LABS: HEMATOCRIT 39.5 % (36.0-47.0); HEMOGLOBIN 13.3 g/dL (12.0-15.5); MEAN CORPUSCULAR HEMOGLOBIN 31.4 pg (27.0-33.4); MEAN CORPUSCULAR HGB CONC 33.6 g/dL (32.0-36.0); MEAN CORPUSCULAR VOLUME 93 fl (80-97); PLATELET COUNT 283 10^3/uL (150-450); RED BLOOD COUNT 4.22 10^6/uL (3.72-5.28); RED CELL DISTRIBUTION WIDTH 13.7 % (11.5-14.0); WHITE BLOOD COUNT 11.5 10^3/uL (4.0-10.5)
[2018-06-20] MEDS: AMPICILLIN SODIUM/SULBACTAM NA 3 GM in NORMAL SALINE 100 ML IV SCH ×2 (17:06→21:22)
[2018-06-21] MEDS: MORPHINE SULFATE 10 MG/ML INJ IV SCH ×3 (00:37→15:51)
[2018-06-21] MEDS: ONDANSETRON HCL INJ/PF 4 MG/2 ML SDV IV PRN (02:22)
[2018-06-21] MEDS ORDERED: FAMOTIDINE INJ/PF 20 MG/2 ML SDV IV PRN (05:00)
[2018-06-21] MEDS: AMPICILLIN SODIUM/SULBACTAM NA 3 GM in NORMAL SALINE 100 ML IV SCH ×3 (05:51→21:43)
[2018-06-21] MEDS ORDERED: BUPIVACAINE HCL 0.5%-EPI 1:200000 INJ/PF 30 ML VIAL ONE (10:43)
[2018-06-21] MEDS ORDERED: FAMOTIDINE INJ/PF 20 MG/2 ML SDV IV ONE (11:22)
[2018-06-21] MEDS ORDERED: HYDROMORPHONE HCL INJ/PF 2 MG/ML AMPULE ONE (11:48)
[2018-06-21] MEDS ORDERED: ACETAMINOPHEN 1,000 MG/100 ML RTUPB IV ONE (11:48)
[2018-06-21] MEDS ORDERED: MIDAZOLAM 2 MG/2 ML INJ ONE (11:48)
[2018-06-21] MEDS ORDERED: PROPOFOL INJ 200 MG/20 ML VIAL IV ONE (11:48)
[2018-06-21] MEDS ORDERED: ONDANSETRON HCL INJ/PF 4 MG/2 ML SDV ONE (11:48)
[2018-06-21] MEDS ORDERED: DEXAMETHASONE SOD PHOSPHATE INJ 4 MG/1 ML VIAL ONE (11:48)
[2018-06-21] MEDS ORDERED: DIPHENHYDRAMINE HCL 50 MG/ML VIAL IV PRN (12:34)
[2018-06-21] MEDS ORDERED: MEPERIDINE HCL/PF INJ 25 MG/1 ML DISP.SYRIN IV PRN (12:34)
[2018-06-21] MEDS ORDERED: FENTANYL CITRATE INJ/PF 100 MCG/2 ML AMPUL IV PRN ×3 (12:34)
[2018-06-21] MEDS ORDERED: PROMETHAZINE HCL INJ 25 MG/1 ML VIAL IV PRN (12:34)
[2018-06-21] MEDS ORDERED: LIDOCAINE 2% JELLY 30 ML TUBE ONE (12:54)
[2018-06-21] MEDS ORDERED: PROMETHAZINE HCL INJ 25 MG/1 ML VIAL ONE (13:34)
[2018-06-21] MEDS ORDERED: FENTANYL CITRATE INJ/PF 100 MCG/2 ML AMPUL ONE (13:35)
[2018-06-21] MEDS ORDERED: RINGERS SOLUTION,LACTATED 1,000 ML IV PRN (14:11)
[2018-06-21] MEDS ORDERED: MORPHINE SULFATE 10 MG/ML INJ IV PRN (14:12)
[2018-06-21] MEDS ORDERED: LIDOCAINE 2% JELLY 5 ML TUBE MM PRN (14:15)
[2018-06-21] MEDS ORDERED: HYDROMORPHONE HCL INJ 2 MG/ML 20 ML MDV IV PRN (15:03)
[2018-06-21] MEDS: NICOTINE 21 MG/24 HR PATCH.TD24 TD SCH (17:58)
[2018-06-21] MEDS: HYDROMORPHONE HCL INJ/PF 2 MG/ML AMPULE IV PRN ×2 (18:00→23:12)
[2018-06-21] MEDS: OXYCODONE-ACETAMINOPHEN 5-325 MG TABLET PO PRN (21:43)
[2018-06-22] MEDS: HYDROMORPHONE HCL INJ/PF 2 MG/ML AMPULE IV PRN ×5 (03:03→20:49)
[2018-06-22] MEDS: ONDANSETRON HCL INJ/PF 4 MG/2 ML SDV IV PRN ×2 (05:14→19:25)
[2018-06-22] MEDS: AMPICILLIN SODIUM/SULBACTAM NA 3 GM in NORMAL SALINE 100 ML IV SCH ×2 (05:15→14:59)
[2018-06-22 06:40] LABS: ABSOLUTE BASOPHILS # (AUTO) 0.1 10^3/uL (0.0-0.2); ABSOLUTE EOSINOPHILS # (AUTO) 0.1 10^3/uL (0.0-0.6); ABSOLUTE LYMPHOCYTES (AUTO) 3.4 10^3/uL (0.5-4.7); ABSOLUTE MONOCYTES (AUTO) 0.6 10^3/uL (0.1-1.4); ABSOLUTE NEUT (AUTO) 8.7 10^3/uL (1.7-8.2); BASOPHILS % (AUTO) 0.8 % (0-2); EOSINOPHILS % (AUTO) 0.6 % (0-6); HEMATOCRIT 37.2 % (36.0-47.0); HEMOGLOBIN 12.6 g/dL (12.0-15.5); LYMPHOCYTES % (AUTO) 26.5 % (13-45); MEAN CORPUSCULAR HEMOGLOBIN 31.7 pg (27.0-33.4); MEAN CORPUSCULAR VOLUME 93 fl (80-97); MONOCYTES % (AUTO) 4.8 % (3-13); PLATELET COUNT 290 10^3/uL (150-450); RED BLOOD COUNT 3.99 10^6/uL (3.72-5.28); RED CELL DISTRIBUTION WIDTH 13.6 % (11.5-14.0); SEGMENTED NEUTROPHILS % (AUTO) 67.3 % (42-78); TOTAL CELLS COUNTED % (AUTO) 100 %; WHITE BLOOD COUNT 12.9 10^3/uL (4.0-10.5)
--- NOTE | 2018-06-22 08:37 | OPERATIVE REPORT E ---
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 POSTOPERATIVE DIAGNOSIS: Labial wound breakdown. OPERATION: Labioplasty with wound debridement and revision of previous surgical excision. SURGEON: VELASQUEZ ESTRADA M.D. SLP TEACHER: Paulo Almonte M.D. ANESTHESIA: Herve Trujillo M.D. with general. FINDINGS: Left labial wound breakdown from the patient's previous Bartholin gland excision, [id number] breakdown of the labia majora in the posterior aspect of the labia, and then superficial breakdown and separation of the internal labia majora with purulent granulation tissue but healthy vascular flow through it. ESTIMATED BLOOD LOSS: 10 mL. COMPLICATIONS: None. SPECIMENS REMOVED: None. PROCEDURE IN DETAIL: The patient was taken to the operating room, prepared and draped in a normal sterile fashion in dorsal lithotomy position. In-and-out catheter was performed of approximately 100 mL of clear, malodorous, strong-smelling urine. The labial findings were noted. Dr. Alomnte scrubbed in to assist with assessment of the wound. After the wound was assessed, we noted there was a hole at the bottom portion of the labia that we felt needed to be divided and then the edges freshened and reattached. Therefore, Metzenbaums were used to divide the labial skin at that defect and then remove the edges of the defect to create vascularity. The defect was then reattached together in whole using a running stitch of 3-0 Vicryl. Once this was completed attention was turned to another small defect where, again, a [id number] interrupted suture was placed of 3-0 Vicryl at the smaller defect which was approximately 0.5 cm above the larger defect that was just repaired. Attention was then turned to the inner aspect of the labia. The granulation tissue was thoroughly debrided using rough debridement and a sterile Ray-Ramy. The harder edges of the wound were removed with Metzenbaums, trimming carefully to maintain vascular supply. This was then reapproximated with several interrupted sutures of 3-0 Vicryl, bringing together the edges and reapproximating the labia in as normal a fashion as possible. Once this was completed and the defect was closed adequately, the procedure was then completed. The sponge, lap, and needle counts were correct x2, and the patient was taken to recovery in stable condition. DICTATING PHYSICIAN: VELASQUEZ ESTRADA M.D. [id number] PHY#: [id number] ID: [id number] JOB#: [id number] ACCT: [id number] cc:VELASQUEZ ESTRADA M.D. >
[2018-06-22] MEDS: NICOTINE 21 MG/24 HR PATCH.TD24 TD SCH (17:51)
[2018-06-23] MEDS: HYDROMORPHONE HCL INJ/PF 2 MG/ML AMPULE IV PRN ×3 (00:35→09:02)
[2018-06-23] MEDS: ONDANSETRON HCL INJ/PF 4 MG/2 ML SDV IV PRN (09:13)
[2018-06-23] MEDS: OXYCODONE-ACETAMINOPHEN 5-325 MG TABLET PO PRN ×3 (11:52→21:03)
[2018-06-23] MEDS ORDERED: DOCUSATE SODIUM 100 MG CAPSULE PO PRN (12:27)
[2018-06-23] MEDS ORDERED: MAGNESIUM HYDROXIDE SUSP 30 ML UDCUP PO PRN (12:27)
--- NOTE | 2018-06-23 12:27 | PDOC PROGRESS REPORT ---
Subjective Progress Note for:: 06/23/18 Subjective:: "vagina is throbbing" Reason For Visit: LABICAL WOUND BREAKDOWN concerned about wound breaking down again Physical Exam - Physical Exam Vital Signs: Temp Pulse Resp BP Pulse Ox 98.5 F 80 18 104/69 100 06/23/18 07:33 06/23/18 07:33 06/23/18 07:33 06/23/18 07:33 06/23/18 07:33 Intake & Output 06/22/18 06/23/18 06/24/18 06:59 06:59 06:59 Intake Total 1864 100 Output Total 2220 950 Balance -356 -850 General appearance: PRESENT: no acute distress, cooperative - Gynecological Exam Labia: tender, discharge - there is some superficial separation of the labia at the sutures. drainage and granulation tissue noted. Urethra: normal Introitus: normal Perineum: normal Result Laboratory Results: 06/22/18 06:00 06/21/18 13:10 Clean Catch Midstream Urine Culture - Final NO GROWTH 2 DAYS Assessment & Plan - Diagnosis (1) Nonhealing nonsurgical wound limited to breakdown of skin Is this a current diagnosis for this admission?: Yes (2) Left genital labial abscess Is this a current diagnosis for this admission?: Yes - Time Time Spent with patient: 15-24 minutes Smoking Cessation Education: 3 to 10 minutes Medications reviewed and adjusted accordingly: Yes Anticipated discharge: Home Within: within 48 hours - Inpatient Certification Based on my medical assessment, after consideration of the patient's comorbidities, presenting symptoms, or acuity I expect that the services needed warrant INPATIENT care.: Yes I certify that my determination is in accordance with my understanding of Medicare's requirements for reasonable and necessary INPATIENT services [42 CFR 412.3e].: Yes Medical Necessity: Failure to Improve With Outpatient Therapy, Need for Pain Control, Need for IV Antibiotics, Risk of Complication if Not Cared For in Hospital - Plan Summary Plan Summary: will order stool softeners for constipation that is likely due to pain medications. I have changed her pain medication to PO meds as she is now > 48 hours fom her procedure. Patient received three doses of Unasyn but I feel that based on her exam today she could benefit from continued antibiotics. I am concerned about breakdown continuing. Will start some topical estrogen cream to aid in healing. Patient has no other insurance other than the [facility] program. I have requested the hospital social workers to see if there is a possibility of the patient qualifying for Medicaid to assist her for payment of her medical expenses. Concerned that if she is discharged again that she could decompensate again and require readmission and repeat procedure. Will monitor closely and discharge as soon as comfortable with healing
[2018-06-23] MEDS ORDERED: MAGNESIUM HYDROXIDE SUSP 30 ML UDCUP PO ONE (14:00)
[2018-06-23] MEDS: CLINDAMYCIN 900 MG/D5W RTU 900 MG/50 ML RTUPB IV SCH ×2 (14:15→21:04)
[2018-06-23] MEDS: DOCUSATE SODIUM 100 MG CAPSULE PO SCH (17:07)
[2018-06-23] MEDS: NICOTINE 21 MG/24 HR PATCH.TD24 TD SCH (18:12)
[2018-06-23] MEDS ORDERED: ESTROGENS,CONJUGATED 0.625 MG/1 GM 30 GM TUBE VG SCH (22:00)
[2018-06-24] MEDS: OXYCODONE-ACETAMINOPHEN 5-325 MG TABLET PO PRN ×3 (01:09→09:45)
[2018-06-24] MEDS: CLINDAMYCIN 900 MG/D5W RTU 900 MG/50 ML RTUPB IV SCH (05:16)
--- NOTE | 2018-06-24 07:57 | PDOC DISCHARGE SUMMARY ---
General - Admit/Disc Date/PCP Admission Date/Primary Care Provider: 06/20/18 14:06 Discharge Date: 06/24/18 - Discharge Diagnosis (1) Nonhealing nonsurgical wound limited to breakdown of skin Is this a current diagnosis for this admission?: Yes (2) Left genital labial abscess Is this a current diagnosis for this admission?: Yes - Additional Information Resuscitation Status: Full Code Home Medications: Cephalexin Monohydrate [Keflex 500 mg Capsule] 500 mg PO QID #20 capsule 06/12/18 Docusate Sodium [Colace 100 mg Capsule] 100 mg PO BID #60 capsule 06/12/18 Oxycodone HCl/Acetaminophen [Percocet 5-325 mg Tablet] 1 tab PO Q4HP PRN #30 tablet 06/12/18 History of Present Illness History of Present Illness: 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 has a rash but no itching Physical Exam - Physical Exam Vital Signs: Temp Pulse Resp BP Pulse Ox 98.2 F 110 H 18 98/63 L 97 06/24/18 05:22 06/24/18 05:22 06/24/18 05:22 06/24/18 05:22 06/24/18 05:22 Intake & Output 06/23/18 06/24/18 06/25/18 06:59 06:59 06:59 Intake Total 100 50 Output Total 950 Balance -850 50 General appearance: PRESENT: no acute distress, cooperative - Gynecological Exam Labia: tender, discharge - there is some superficial separation of the labia at the sutures. drainage and granulation tissue noted., other - pururlence decreased. tissue healing well. sutures dissolving appropriately. no further signs of breakdown Urethra: normal Introitus: normal Perineum: normal Result Laboratory Results: 06/22/18 06:00 06/21/18 13:10 Clean Catch Midstream Urine Culture - Final NO GROWTH 2 DAYS Plan Discharge Plan: will discharge home today. d/c clindamycin. instructed to take zyrtec for rash. will give a diflucan script for candidiasis if she gets symptoms. Patient requesting additional pain medication. I discussed with her and family that she should need less and less of the pain medication and thoroughly counseled her on opioid addiction concerns and new laws that address limits on pain medication prescribing. She and SO voiced understanding. She is allergic to motrin but indicates she can take naproxen. Instructions given on alternati ng the percocet with naproxen and that she should not expect further narcotic scripts after the one that I will discharge her with. voices understanding continue sitz baths and the estrogen cream on the wound area bid.
[2018-06-24] MEDS: DOCUSATE SODIUM 100 MG CAPSULE PO SCH (09:45)
[2018-06-24 11:41] VITALS: BP 109/71
== END 2018-06-24 12:34 | disposition home or self-care (01) ==
LOC: 2N 14:06
PROVIDERS: ADMIT Obstetrics & Gynecology; ATTEND Obstetrics & Gynecology
PROC: HZ31ZZZ Individual Counseling for Substance Abuse Treatment, Behavioral (ICD-10-PCS; 2018-06-21)
PROC: 0UBM0ZZ Excision of Vulva, Open Approach (ICD-10-PCS; principal; 2018-06-21 12:15)
DX: N76.4 Abscess of vulva (principal); T81.49XA Infection following a procedure, other surgical site, initial encounter; T81.32XA Disruption of internal operation (surgical) wound, not elsewhere classified, initial encounter; Y83.8 Other surgical procedures as the cause of abnormal reaction of the patient, or of later complication, without mention of misadventure at the time of the procedure; R21 Rash and other nonspecific skin eruption; F17.210 Nicotine dependence, cigarettes, uncomplicated; K59.00 Constipation, unspecified; Z88.8 Allergy status to other drugs, medicaments and biological substances; Z85.41 Personal history of malignant neoplasm of cervix uteri; Z90.710 Acquired absence of both cervix and uterus
CPT/HCPCS: 56620; 36415 ×2; 87086; 85025; 85027; 99406; G0378 ×5; G0379; J2250; J3490 ×3; J1100; J3010; J0295 ×3; J2270; J1170 ×3; J2550; J2405 ×3; J7120; J2704; S0028; J0131; 940

== ENCOUNTER 2018-10-31 16:43 | Emergency (ER) | payer OTHER ==
[2018-10-31] MEDS ORDERED: DICYCLOMINE HCL 20 MG TABLET PO ONE (18:14)
--- NOTE | 2018-10-31 18:15 | ER Document Report ---
ED Medical Screen (RME) - General Chief Complaint: Cough Stated Complaint: COUGH Time Seen by Provider: 10/31/18 17:56 Mode of Arrival: Ambulatory Information source: Patient Notes: Patient presents with cough for the past week and a half with congestion. Patient states her voice is hoarse today and she has a sore throat. Patient also developed diarrhea today and abdominal cramping that started yesterday. Patient complains of generalized abdominal tenderness. Patient denies any nausea vomiting or urinary symptoms. Patient does have a history of Crohn's and states that this does feel similar to when she had flareups in the past although she is not certain if she may not have the pain due to taking gykr-flo-mprncip medications. I have greeted and performed a rapid initial assessment of this patient. A comprehensive ED assessment and evaluation of the patient, analysis of test results and completion of the medical decision making process will be conducted by additional ED providers. TRAVEL OUTSIDE OF THE [place] IN LAST 30 DAYS: No - Related Data Allergies/Adverse Reactions: ibuprofen [Ibuprofen] Allergy (Severe, Verified 10/31/18 16:44) throat swells, itching blotches aspirin Allergy (Verified 10/31/18 16:44) Past Medical History - Social History Chew tobacco use (# tins/day): No Frequency of alcohol use: Occasional Drug Abuse: None - Past Medical History Cardiac Medical History: Pulmonary Medical History: Denies: Hx Asthma, Hx Bronchitis, Hx COPD, Hx Pneumonia Neurological Medical History: Reports: Hx Seizures. Denies: Hx Cerebrovascular Accident Renal/ Medical History: Reports: Hx Ovarian Cysts. Denies: Hx Peritoneal Dialysis Malignancy Medical History: Reports: Hx Cervical Cancer GI Medical History: Reports: Hx Gastritis, Hx Hiatal Hernia, Hx Irritable Bowel, Hx Ulcerative Colitis, Hx Colonoscopy, Hx Endoscopy Musculoskeltal Medical History: Reports Hx Arthritis, Reports Hx Fibromyalgia, Reports Hx Musculoskeletal Trauma Psychiatric Medical History: Reports: Hx Anxiety, Hx Bipolar Disorder - anxiety and depression, Hx Depression Traumatic Medical History: Reports: Hx Fractures Past Surgical History: Reports: Hx Breast Surgery - lumpectomy r beast, Hx Hysterectomy, Other - right bartholins gland cyst excision, reports greater than 40 word cath lt. Denies: Hx Pacemaker - Immunizations Immunizations up to date: Yes Hx Diphtheria, Pertussis, Tetanus Vaccination: No - 2008 History of Influenza Vaccine for 03/2017 - 08/2017 Season: No Physical Exam - Vital signs Vitals: Temp Pulse Resp BP Pulse Ox 98.4 F 78 18 123/79 97 10/31/18 16:54 10/31/18 16:54 10/31/18 16:54 10/31/18 16:54 10/31/18 16:54 - Abdominal Tenderness: Tender - Denies abdominal tenderness Course - Vital Signs Vital signs: Temp Pulse Resp BP Pulse Ox 98.4 F 78 18 123/79 97 10/31/18 16:54 10/31/18 16:54 10/31/18 16:54 10/31/18 16:54 10/31/18 16:54
--- NOTE | 2018-10-31 18:43 | RADIOLOGY REPORT (SQ) ---
EXAM DESCRIPTION: ACUTE ABDOMEN SERIES COMPLETED DATE/TIME: 10/31/2018 6:34 pm REASON FOR STUDY: cough, abd pain, hx crohns COMPARISON: None. NUMBER OF VIEWS: Three views. TECHNIQUE: Frontal chest, supine abdomen and upright/decubitus abdomen radiographic images acquired. LIMITATIONS: None. FINDINGS: CHEST: Parenchymal opacity perihilar on the right having the appearance of an acute infilt rate. FREE AIR: None. No abnormal gas collections. BOWEL GAS PATTERN: Nonobstructive pattern. No dilated loops or air fluid levels. CALCIFICATIONS: No suspicious calcifications. HARDWARE: None in the abdomen. SOFT TISSUES: No gross mass or suggestion of organomegaly. BONES: No acute fracture. No worrisome bone lesions. OTHER: No other significant finding. IMPRESSION: Right perihilar pneumonia. No radiographic evidence for acute abdominal disease. TECHNICAL DOCUMENTATION: JOB ID: [id number] [employer]- All Rights Reserved Reading location - IP/workstation name: [email or web address]
[2018-10-31] MEDS ORDERED: LEVOFLOXACIN 750 MG/D5W RTU 750 MG/150 ML RTUPB IV ONE (19:13)
[2018-10-31 19:14] LABS: ABSOLUTE BASOPHILS # (AUTO) 0.1 10^3/uL (0.0-0.2); ABSOLUTE EOSINOPHILS # (AUTO) 0.3 10^3/uL (0.0-0.6); ABSOLUTE LYMPHOCYTES (AUTO) 2.5 10^3/uL (0.5-4.7); ABSOLUTE MONOCYTES (AUTO) 0.4 10^3/uL (0.1-1.4); ABSOLUTE NEUT (AUTO) 3.5 10^3/uL (1.7-8.2); BASOPHILS % (AUTO) 0.9 % (0-2); EOSINOPHILS % (AUTO) 3.9 % (0-6); HEMATOCRIT 37.8 % (36.0-47.0); LYMPHOCYTES % (AUTO) 36.9 % (13-45); MEAN CORPUSCULAR HEMOGLOBIN 31.5 pg (27.0-33.4); MEAN CORPUSCULAR HGB CONC 34.4 g/dL (32.0-36.0); MEAN CORPUSCULAR VOLUME 92 fl (80-97); MONOCYTES % (AUTO) 6.4 % (3-13); PLATELET COUNT 208 10^3/uL (150-450); RED BLOOD COUNT 4.12 10^6/uL (3.72-5.28); RED CELL DISTRIBUTION WIDTH 13.5 % (11.5-14.0); SEGMENTED NEUTROPHILS % (AUTO) 51.9 % (42-78); TOTAL CELLS COUNTED % (AUTO) 100 %; WHITE BLOOD COUNT 6.7 10^3/uL (4.0-10.5)
[2018-10-31] MEDS ORDERED: METHYLPREDNISOLONE INJ 125 MG/2 ML SDV IV ONE (19:23)
[2018-10-31] MEDS ORDERED: IPRATROPIUM/ALBUTEROL 0.5-2.5 MG/3 ML AMPUL NEB ONE (19:23)
[2018-10-31 19:30] LABS: APPEARANCE,URINE SLIGHTLY-CLOUDY; BILIRUBIN,URINE NEGATIVE (NEGATIVE); COLOR,URINE YELLOW; GLUCOSE, URINE NEGATIVE (NEGATIVE); KETONES,URINE NEGATIVE (NEGATIVE); LEUKOCYTE ESTERASE,URINE NEGATIVE (NEGATIVE); NITRITE,URINE NEGATIVE (NEGATIVE); PROTEIN,URINE NEGATIVE (NEGATIVE); URINE SPECIFIC GRAVITY 1.017
[2018-10-31 19:31] LABS: ALANINE AMINOTRANSFERASE 120 U/L (9-52); ALBUMIN 3.7 g/dL (3.5-5.0); ALKALINE PHOSPHATASE 59 U/L (38-126); ANION GAP 9 (5-19); ASPARTATE AMINO TRANSFERASE 117 U/L (14-36); BILIRUBIN,DIRECT 0.3 mg/dL (0.0-0.4); BILIRUBIN,TOTAL 0.3 mg/dL (0.2-1.3); BLOOD UREA NITROGEN 15 mg/dL (7-20); CALCIUM 9.5 mg/dL (8.4-10.2); CARBON DIOXIDE 25 mmol/L (22-30); CHLORIDE 106 mmol/L (98-107); GLUCOSE 83 mg/dL (75-110); LIPASE 74.7 U/L (23-300); POTASSIUM 3.8 mmol/L (3.6-5.0); SODIUM 139.5 mmol/L (137-145); TOTAL PROTEIN 6.7 g/dL (6.3-8.2)
--- NOTE | 2018-10-31 22:08 | ER Document Report ---
ED Respiratory Problem - General Chief Complaint: Cough Stated Complaint: COUGH Time Seen by Provider: 10/31/18 17:56 Primary Care Provider: [facility] [NO LOCAL MD] - Follow up as needed Mode of Arrival: Ambulatory Information source: Patient Notes: Patient is a 31-year-old female comes emergency room complaint upper respiratory symptoms. She states she started getting sick around Mother's Day and has progressively gotten worse over the course of time. She has had chills and felt feverish but she had no thermometer to check her temperature. She has systemic body aches and pains with notable diarrhea the last couple of days. She does have a history of Crohn's disease but states this does not feel like a flareup. Patient also complains of having a moderate amount of laryngitis. She has fever blisters on her right upper lip. She has had a cough that is turn from dry into productive but is only a clear phlegm that only started to develop as of today. TRAVEL OUTSIDE OF THE [place] IN LAST 30 DAYS: No - HPI Patient complains to provider of: Cough, Short of breath Onset: Last week Duration: Continuous, Worse/persistent Initiating Event: Exposure to smoke, URI Quality of pain: Achy Severity: Moderate Pain Level: 3 Context: Smoker Short of Breath: Moderate Cough: Productive Sputum amount: Small Sputum color: Clear Sputum consistency: Thick Associated symptoms: Chills, Congestion, Cough, Difficulty breathing, Runny nose, Sinus pain/pressure, Sore Throat, Wheezing Similar symptoms previously: No Recently seen / treated by doctor: No - Related Data Allergies/Adverse Reactions: ibuprofen [Ibuprofen] Allergy (Severe, Verified 10/31/18 16:44) throat swells, itching blotches aspirin Allergy (Verified 10/31/18 16:44) Past Medical History - General Information source: Patient - Social History Smoking Status: Current Every Day Smoker Cigarette use (# per day): Yes - Half-pack Chew tobacco use (# tins/day): No Frequency of alcohol use: Occasional Drug Abuse: None Lives with: Spouse/Significant other Family History: Reviewed & Not Pertinent, Arthritis, CAD, COPD, CVA, DM, Hyperlipidemia, Hypertension, Malignancy, Other Patient has suicidal ideation: No Patient has homicidal ideation: No - Past Medical History Cardiac Medical History: Pulmonary Medical History: Denies: Hx Asthma, Hx Bronchitis, Hx COPD, Hx Pneumonia Neurological Medical History: Reports: Hx Seizures. Denies: Hx Cerebrovascular Accident Renal/ Medical History: Reports: Hx Ovarian Cysts. Denies: Hx Peritoneal Dialysis Malignancy Medical History: Reports: Hx Cervical Cancer GI Medical History: Reports: Hx Gastritis, Hx Hiatal Hernia, Hx Irritable Bowel, Hx Ulcerative Colitis, Hx Colonoscopy, Hx Endoscopy Musculoskeletal Medical History: Reports Hx Arthritis, Reports Hx Fibromyalgia, Reports Hx Musculoskeletal Trauma Psychiatric Medical History: Reports: Hx Anxiety, Hx Bipolar Disorder - anxiety and depression, Hx Depression Traumatic Medical History: Reports: Hx Fractures Past Surgical History: Reports: Hx Breast Surgery - lumpectomy r beast, Hx Hysterectomy, Other - right bartholins gland cyst excision, reports greater than 40 word cath lt. Denies: Hx Pacemaker - Immunizations Immunizations up to date: Yes Hx Diphtheria, Pertussis, Tetanus Vaccination: No - 2007 Review of Systems - Review of Systems Constitutional: See HPI, Chills EENT: Nose congestion, Nose discharge, Sinus pressure, Throat pain Cardiovascular: No symptoms reported Respiratory: See HPI, Short of breath, Wheezing Gastrointestinal: No symptoms reported Genitourinary: No symptoms reported Female Genitourinary: No symptoms reported Musculoskeletal: No symptoms reported Skin: No symptoms reported Hematologic/Lymphatic: No symptoms reported Neurological/Psychological: No symptoms reported -: Yes All other systems reviewed and negative Physical Exam - Vital signs Vitals: Temp Pulse Resp BP Pulse Ox 98.4 F 78 18 123/79 97 10/31/18 16:54 10/31/18 16:54 10/31/18 16:54 10/31/18 16:54 10/31/18 16:54 Interpretation: Normal - Notes Notes: PHYSICAL EXAMINATION: GENERAL: Patient is well-nourished well-developed 32-year-old female comes to emergency room in no apparent distress on physical exam does appear moderately ill. HEAD: Atraumatic, normocephalic. EYES: Pupils equal round and reactive to light, extraocular movements intact, conjunctiva are normal. ENT: Noted. Examination head and upper airway showed nasal mucosa to be moderately erythematous and edematous with some rhinorrhea she has some moderate frontal maxillary sinus tenderness to palpation. Bilateral TMs bulging but no air-fluid levels. Posterior pharynx shows moderate amount of drainage yellowish in color but very thick in appearance. Uvula is midline with erythema but no exudate airway is patent. NECK: Normal range of motion, supple without lymphadenopathy LUNGS: auscultation patient's lung romero show she has bilateral breath sounds breath sounds are moderately decreased throughout with a faint end expiratory wheeze noted. No rhonchi or rales are heard on auscultation. HEART: Regular rate and rhythm without murmurs ABDOMEN: Soft, nontender, nondistended abdomen. No guarding, no rebound. No masses appreciated. Female : deferred Musculoskeletal: Normal range of motion, no pitting or edema. No cyanosis. NEUROLOGICAL: Normal speech, normal gait. Normal sensory, motor exams PSYCH: Normal mood, normal affect. SKIN: Patient does display a few fever blisters on the right upper lip in various stages of healing with dryness to the clear pustules. Course - Re-evaluation Re-evalutation: 10/31/18 22:11 Patient was found to have a right hilar infiltrate at this point given her white count is still normal I have discussed in length with patient her options and she is chosen to try outpatient therapy with oral Levaquin. I explained to her the side effects of the quinolones to include and tendon rupture and patient is aware of this but is willing to take the chance given that she has a pneumonia i n her lungs. I am also place her on a steroid taper because of the wheezing. She will return to ER if she spikes a fever or starts to feel worse. - Vital Signs Vital signs: Temp Pulse Resp BP Pulse Ox 98.4 F 78 18 123/79 97 10/31/18 16:54 10/31/18 16:54 10/31/18 16:54 10/31/18 16:54 10/31/18 16:54 - Laboratory Result Diagrams: 10/31/18 18:54 10/31/18 18:54 Laboratory results interpreted by me: 10/31/18 10/31/18 18:54 18:54 AST 117 H ALT 120 H Urine Urobilinogen 4.0 H Discharge - Discharge Clinical Impression: Fever blisters Pneumonia Qualifiers: Pneumonia type: due to unspecified organism Laterality: right Lung location: upper lobe of lung Qualified Code(s): J18.1 - Lobar pneumonia, unspecified organism Disposition: HOME, SELF-CARE Instructions: Herpes Simplex ([facility]), Pneumonia ([facility]) Additional Instructions: Home and rest. Medications prescribed. Tylenol alternate with Motrin every 4 hours keep fever down as well as aches and pains. Push fluids but avoid milk and dairy for the next 48 hours. Cut back smoking as much as possible. Return to ER if he should become short of breath spike a fever that does not go away on Tylenol Motrin or have any concerns other than that. As I discussed the are couple things she can do to get rid of the fever blisters. You can get reba-kgh-nnzgfcc acidophilus and take it as directed you can ask the pharmacist on the counter for lactobacillus live culture the keep in the refrigerator. These will kitchen help handyman that type of a presentation. You can also highly recommend that you use yogurts as well since you can be on antibiotics. Mostly on her right you for Diflucan pills and she will be on strong antibiotics this will stop you from getting a yeast infection. Against you have any concerns or problems return to ER for recheck. Prescriptions: Fluconazole [Diflucan] 150 mg PO ONCE PRN #1 tablet PRN Reason: Levofloxacin [Levaquin 750 mg Tablet] 750 mg PO DAILY 7 Days #7 tablet Prednisone 10 mg PO ASDIR 6 Days #1 tab.ds.pk Forms: Smoking Cessation Education, Return to Work [facility]: [facility] [NO LOCAL MD] - Follow up as needed
[2018-10-31 22:27] VITALS: BP 115/83
== END 2018-10-31 22:26 | disposition home or self-care (01) ==
LOC: ER 16:43
DX: J18.1 Lobar pneumonia, unspecified organism (principal); B00.1 Herpesviral vesicular dermatitis; R68.83 Chills (without fever); R19.7 Diarrhea, unspecified; R05 Cough; R06.02 Shortness of breath; J34.89 Other specified disorders of nose and nasal sinuses; R09.81 Nasal congestion; R06.2 Wheezing; F17.210 Nicotine dependence, cigarettes, uncomplicated; Z88.6 Allergy status to analgesic agent; Z85.41 Personal history of malignant neoplasm of cervix uteri
CPT/HCPCS: 94640; 99283; 96375; 96365; 36415; 87040; 87070; 87880; 83690; 85025; 80053; 81001; 74022; J3490; J2930; J1956; J7620

== ENCOUNTER 2018-11-12 18:58 | Emergency (ER) | payer OTHER ==
--- NOTE | 2018-11-12 19:30 | ER Document Report ---
ED Medical Screen (RME) - General Chief Complaint: Abdominal Pain Stated Complaint: SORE THROAT Time Seen by Provider: 11/12/18 19:27 Mode of Arrival: Ambulatory Information source: Patient Notes: Patient presents emergency department with multiple complaints. Reports she was recently treated for pneumonia but does not feel any better. Finished her steroids and her antibiotics. She also complains of a severe sore throat ear pain. Reports hot flashes. Denies fever vomiting but reports some diarrhea. I have greeted and performed a rapid initial assessment of this patient. A comprehensive ED assessment and evaluation of the patient, analysis of test results and completion of the medical decision making process will be conducted by additional ED providers. Dictation of this chart was performed using voice recognition software; therefore, there may be some unintended grammatical errors. TRAVEL OUTSIDE OF THE [place] IN LAST 30 DAYS: No - Related Data Allergies/Adverse Reactions: ibuprofen [Ibuprofen] Allergy (Severe, Verified 11/12/18 19:00) throat swells, itching blotches aspirin Allergy (Verified 11/12/18 19:00) Past Medical History - Past Medical History Cardiac Medical History: Pulmonary Medical History: Denies: Hx Asthma, Hx Bronchitis, Hx COPD, Hx Pneumonia Neurological Medical History: Reports: Hx Seizures. Denies: Hx Cerebrovascular Accident Renal/ Medical History: Reports: Hx Ovarian Cysts. Denies: Hx Peritoneal Dialysis Malignancy Medical History: Reports: Hx Cervical Cancer GI Medical History: Reports: Hx Gastritis, Hx Hiatal Hernia, Hx Irritable Bowel, Hx Ulcerative Colitis, Hx Colonoscopy, Hx Endoscopy Musculoskeltal Medical History: Reports Hx Arthritis, Reports Hx Fibromyalgia, Reports Hx Musculoskeletal Trauma Psychiatric Medical History: Reports: Hx Anxiety, Hx Bipolar Disorder - anxiety and depression, Hx Depression Traumatic Medical History: Reports: Hx Fractures Past Surgical History: Reports: Hx Breast Surgery - lumpectomy r beast, Hx Hysterectomy, Other - right bartholins gland cyst excision, reports greater than 40 word cath lt. Denies: Hx Pacemaker - Immunizations Immunizations up to date: Yes Hx Diphtheria, Pertussis, Tetanus Vaccination: No - 2008 History of Influenza Vaccine for 03/2017 - 08/2017 Season: No Physical Exam - Vital signs Vitals: Temp Pulse Resp BP Pulse Ox 98.4 F 89 16 113/72 97 11/12/18 19:03 11/12/18 19:03 11/12/18 19:03 11/12/18 19:03 11/12/18 19:03 Course - Vital Signs Vital signs: Temp Pulse Resp BP Pulse Ox 98.4 F 89 16 113/72 97 11/12/18 19:03 11/12/18 19:03 11/12/18 19:03 11/12/18 19:03 11/12/18 19:03
--- NOTE | 2018-11-12 20:09 | RADIOLOGY REPORT (SQ) ---
EXAM DESCRIPTION: CHEST 2 VIEWS COMPLETED DATE/TIME: 11/12/2018 7:44 pm REASON FOR STUDY: hx pneumonia- recheck COMPARISON: None. EXAM PARAMETERS: NUMBER OF VIEWS: two views TECHNIQUE: Digital Frontal and Lateral radiographic views of the chest acquired. RADIATION DOSE: NA LIMITATIONS: none FINDINGS: LUNGS AND PLEURA: No opacities, masses or pneumothorax. No pleural effusion. MEDIASTINUM AND HILAR STRUCTURES: No masses or contour abnormalities. HEART AND VASCULAR STRUCTURES: Heart normal size. No evidence for failure. BONES: No acute findings. HARDWARE: None in the chest. OTHER: No other significant finding. IMPRESSION: NO ACUTE RADIOGRAPHIC FINDING IN THE CHEST. TECHNICAL DOCUMENTATION: JOB ID: [id number] [employer]- All Rights Reserved Reading location - IP/workstation name: [email or web address]
[2018-11-12] MEDS ORDERED: ALBUTEROL SULFATE HFA (90 MCG/PUFF) 8 GM MDI (1 MDI/ER DISP) IH ONE (21:41)
[2018-11-12] MEDS ORDERED: DEXAMETHASONE SOD PHOS INJ 10 MG/1 ML VIAL IM ONE (21:41)
--- NOTE | 2018-11-12 21:46 | ER Document Report ---
HPI - HPI Time Seen by Provider: 11/12/18 19:27 Pain Level: 4 Context: Patient is a 32-year-old female that comes to the emergency department for chief complaint of right-sided ear pain, and sore throat. Symptoms have been present for the past 2 to 3 days. She states she was seen here on 10/31/2018, diagnosed with pneumonia, completed Levaquin and prednisone, she states she did have resolution of symptoms and felt much better. Afterwards the other symptoms developed. She denies chest pain, shortness of breath, fever, but she still reports occasional cough. She smokes, has a medical history of Crohn's disease, denies medical history otherwise. - REPRODUCTIVE Reproductive: DENIES: : - DERM Skin Color: Normal Past Medical History - General Information source: Patient - Social History Smoking Status: Current Every Day Smoker Chew tobacco use (# tins/day): No Frequency of alcohol use: None Drug Abuse: None Lives with: Family Family History: Reviewed & Not Pertinent, Arthritis, CAD, COPD, CVA, DM, Hyperlipidemia, Hypertension, Malignancy, Other Patient has suicidal ideation: No Patient has homicidal ideation: No - Past Medical History Cardiac Medical History: Pulmonary Medical History: Denies: Hx Asthma, Hx Bronchitis, Hx COPD, Hx Pneumonia Neurological Medical History: Reports: Hx Seizures. Denies: Hx Cerebrovascular Accident Renal/ Medical History: Reports: Hx Ovarian Cysts. Denies: Hx Peritoneal Dialysis Malignancy Medical History: Reports: Hx Cervical Cancer GI Medical History: Reports: Hx Gastritis, Hx Hiatal Hernia, Hx Irritable Bowel, Hx Ulcerative Colitis, Hx Colonoscopy, Hx Endoscopy Musculoskeletal Medical History: Reports Hx Arthritis, Reports Hx Fibromyalgia, Reports Hx Musculoskeletal Trauma Psychiatric Medical History: Reports: Hx Anxiety, Hx Bipolar Disorder - anxiety and depression, Hx Depression Traumatic Medical History: Reports: Hx Fractures Past Surgical History: Reports: Hx Breast Surgery - lumpectomy r beast, Hx Hysterectomy, Other - right bartholins gland cyst excision, reports greater than 40 word cath lt. Denies: Hx Pacemaker - Immunizations Immunizations up to date: Yes Hx Diphtheria, Pertussis, Tetanus Vaccination: No - 2007 Vertical Provider Document - CONSTITUTIONAL General Appearance: WD/WN, No Apparent Distress - INFECTION CONTROL TRAVEL OUTSIDE OF THE [place] IN LAST 30 DAYS: No - HEENT HEENT: Atraumatic, Normocephalic. negative: Normal ENT Exam - Mild erythema the posterior pharynx, no tonsillar swelling or exudates, normal uvula, clear airway, unremarkable tongue exam. Left ear is unremarkable, right ear shows effusion but no loss of landmarks, bulging, or other concerning abnormality noted. - NECK Neck: Other - Minimal bilateral anterior cervical adenopathy with normal submandibular areas - RESPIRATORY Respiratory: Breath Sounds Normal, No Respiratory Distress - CARDIOVASCULAR Cardiovascular: Regular Rate, Regular Rhythm - GI/ABDOMEN Gastrointestinal: Abdomen Soft, Abdomen Non-Tender - BACK Back: Normal Inspection - MUSCULOSKELETAL/EXTREMETIES Musculoskeletal/Extremeties: MAEW, FROM, Non-Tender - NEURO Level of Consciousness: Awake, Alert, Appropriate Motor/Sensory: No Motor Deficit, No Sensory Deficit - DERM Integumentary: Warm, Dry, No Rash Course - Re-evaluation Re-evalutation: Chest x-ray is clear, pneumonia appears to have resolved after she took the Levaquin course. Patient has a history of smoking, occasional wheezing, is not currently wheezing. No hypoxia or signs of distress. She has mild anterior cervical adenopathy, negative strep. She has a right ear effusion. I do not see a current bacterial infection. Discussed with patient. Given dexamethasone, given albuterol inhaler with spacer to go home with although she states she has another one at home, discussed work-up, follow-up, expectations, return precautions. Patient states understanding and agreement. - Vital Signs Vital signs: Temp Pulse Resp BP Pulse Ox 98.4 F 89 16 113/72 97 11/12/18 19:03 11/12/18 19:03 11/12/18 19:03 11/12/18 19:03 11/12/18 19:03 Discharge - Discharge Clinical Impression: Ear pain, right Pharyngitis Qualifiers: Pharyngitis/tonsillitis etiology: unspecified etiology Qualified Code(s): J02.9 - Acute pharyngitis, unspecified Condition: Stable Disposition: HOME, SELF-CARE Additional Instructions: Your chest x-ray shows the pneumonia has cleared. The strep test is negative. Your examination shows swollen lymph nodes, irritated throat, and developing right-sided ear infection. You been treated with dexamethasone, I recommend you use the Flonase and Sudafed, take Tylenol for pain, your symptoms may clear without antibiotics. If symptoms continue over the next 2 days start the antibiotics and follow-up with primary care. Stop smoking. Return if you worsen including severe pain or swelling at the ear, vomiting, difficulty breathing, developing fever, or any other concerning symptoms. Prescriptions: Amoxicillin Trihydrate [Amoxil 500 mg Capsule] 1,000 mg PO BID 7 Days #28 capsule Fluticasone Propionate [Flonase Nasal [place] 50 Mcg/[place] 16 gm] 2 sprays NASL Q12 #1 inhaler Pseudoephedrine HCl [Sudafed 12 Hour] 120 mg PO Q12 PRN #14 tablet.er PRN Reason: Forms: Return to Work
[2018-11-12 21:57] VITALS: BP 132/74
== END 2018-11-12 21:54 | disposition home or self-care (01) ==
LOC: ER 18:58
DX: J02.9 Acute pharyngitis, unspecified (principal); H92.01 Otalgia, right ear; H93.8X1 Other specified disorders of right ear; R05 Cough; F17.200 Nicotine dependence, unspecified, uncomplicated; Z87.01 Personal history of pneumonia (recurrent); Z85.41 Personal history of malignant neoplasm of cervix uteri; R59.0 Localized enlarged lymph nodes
CPT/HCPCS: 99283; 96372; 87070; 87880; 71046; J1100; J3490

== ENCOUNTER 2019-05-06 20:29 | Emergency (ER) | payer SELFPAY ==
[2019-05-06] MEDS ORDERED: METOCLOPRAMIDE HCL INJ/PF 10 MG/2 ML SDV IV ONE (21:32)
[2019-05-06] MEDS ORDERED: NORMAL SALINE 1000 ML 1,000 ML IV ONE ×2 (21:32→23:58)
--- NOTE | 2019-05-06 21:34 | ER Document Report ---
ED Medical Screen (RME) - General Chief Complaint: Abdominal Pain Stated Complaint: ABDOMINAL PAIN Time Seen by Provider: 05/06/19 21:25 Mode of Arrival: Medic Information source: Patient Notes: 33-year-old female with history of Crohn's presents with complaints of abdominal pain nausea vomiting diarrhea. Reports her abdomen started hurting 2 days ago vomiting today. Denies fever. Reports she is worried she may have ate something to cause this. Patient was brought in by EMS. Reports that Zofran is not helping. Requesting something for pain but reports she has anaphylactic reaction to ibuprofen. Reports Tylenol is not helping. I have greeted and performed a rapid initial assessment of this patient. A comprehensive ED assessment and evaluation of the patient, analysis of test results and completion of the medical decision making process will be conducted by additional ED providers. Dictation of this chart was performed using voice recognition software; therefore, there may be some unintended grammatical errors. TRAVEL OUTSIDE OF THE [place] IN LAST 30 DAYS: No - Related Data Allergies/Adverse Reactions: ibuprofen [Ibuprofen] Allergy (Severe, Verified 05/06/19 21:18) throat swells, itching blotches Past Medical History - Social History Frequency of alcohol use: Occasional Drug Abuse: Marijuana - Past Medical History Cardiac Medical History: Pulmonary Medical History: Denies: Hx Asthma, Hx Bronchitis, Hx COPD, Hx Pneumonia Neurological Medical History: Reports: Hx Seizures. Denies: Hx Cerebrovascular Accident Renal/ Medical History: Reports: Hx Ovarian Cysts. Denies: Hx Peritoneal Dialysis Malignancy Medical History: Reports: Hx Cervical Cancer GI Medical History: Reports: Hx Gastritis, Hx Hiatal Hernia, Hx Irritable Bowel, Hx Ulcerative Colitis, Hx Colonoscopy, Hx Endoscopy Musculoskeltal Medical History: Reports Hx Arthritis, Reports Hx Fibromyalgia, Reports Hx Musculoskeletal Trauma Psychiatric Medical History: Reports: Hx Anxiety, Hx Bipolar Disorder - anxiety and depression, Hx Depression Traumatic Medical History: Reports: Hx Fractures Past Surgical History: Reports: Hx Breast Surgery - lumpectomy r beast, Hx Hysterectomy, Other - right bartholins gland cyst excision, reports greater than 40 word cath lt. Denies: Hx Pacemaker - Immunizations Immunizations up to date: Yes Hx Diphtheria, Pertussis, Tetanus Vaccination: No - 2007 Physical Exam - Vital signs Vitals: Temp Pulse Resp BP Pulse Ox 98.1 F 86 20 117/78 100 05/06/19 20:56 05/06/19 20:56 05/06/19 20:56 05/06/19 20:56 05/06/19 20:56 Course - Vital Signs Vital signs: Temp Pulse Resp BP Pulse Ox 98.1 F 86 20 117/78 100 05/06/19 20:56 05/06/19 20:56 05/06/19 20:56 05/06/19 20:56 05/06/19 20:56
[2019-05-06 22:03] LABS: APPEARANCE,URINE CLOUDY; BILIRUBIN,URINE MODERATE (NEGATIVE); GLUCOSE, URINE NEGATIVE (NEGATIVE); KETONES,URINE 80 mg/dL (NEGATIVE); LEUKOCYTE ESTERASE,URINE NEGATIVE (NEGATIVE); NITRITE,URINE NEGATIVE (NEGATIVE); PROTEIN,URINE 100 mg/dL (NEGATIVE); URINE SPECIFIC GRAVITY 1.032
[2019-05-06 22:05] LABS: COLOR,URINE YELLOW
[2019-05-06 22:27] LABS: ABSOLUTE BASOPHILS # (AUTO) 0.1 10^3/uL (0.0-0.2); ABSOLUTE MONOCYTES (AUTO) 0.4 10^3/uL (0.1-1.4); ABSOLUTE NEUT (AUTO) 17.3 10^3/uL (1.7-8.2); BASOPHILS % (AUTO) 0.3 % (0-2); HEMATOCRIT 48.4 % (36.0-47.0); HEMOGLOBIN 16.3 g/dL (12.0-15.5); MEAN CORPUSCULAR HEMOGLOBIN 31.1 pg (27.0-33.4); MEAN CORPUSCULAR HGB CONC 33.6 g/dL (32.0-36.0); MEAN CORPUSCULAR VOLUME 93 fl (80-97); PLATELET COUNT 273 10^3/uL (150-450); RED BLOOD COUNT 5.23 10^6/uL (3.72-5.28); RED CELL DISTRIBUTION WIDTH 13.2 % (11.5-14.0); SEGMENTED NEUTROPHILS % (AUTO) 87.7 % (42-78); TOTAL CELLS COUNTED % (AUTO) 100 %; WHITE BLOOD COUNT 19.8 10^3/uL (4.0-10.5)
[2019-05-06 22:41] LABS: ALBUMIN 4.8 g/dL (3.5-5.0); ALKALINE PHOSPHATASE 65 U/L (38-126); ANION GAP 18 (5-19); ASPARTATE AMINO TRANSFERASE 24 U/L (14-36); BILIRUBIN,DIRECT 0.2 mg/dL (0.0-0.4); BILIRUBIN,TOTAL 0.7 mg/dL (0.2-1.3); BLOOD UREA NITROGEN 14 mg/dL (7-20); CALCIUM 10.7 mg/dL (8.4-10.2); CARBON DIOXIDE 19 mmol/L (22-30); CHLORIDE 106 mmol/L (98-107); GLUCOSE 128 mg/dL (75-110); POTASSIUM 3.9 mmol/L (3.6-5.0); TOTAL PROTEIN 8.2 g/dL (6.3-8.2)
[2019-05-06] MEDS ORDERED: METOCLOPRAMIDE HCL INJ/PF 10 MG/2 ML SDV ONE (23:46)
[2019-05-06] MEDS ORDERED: MORPHINE SULFATE 10 MG/ML INJ IV ONE (23:58)
--- NOTE | 2019-05-07 00:05 | ER Document Report ---
ED GI/ - General Chief Complaint: Abdominal Pain Stated Complaint: ABDOMINAL PAIN Time Seen by Provider: 05/06/19 21:25 Mode of Arrival: Medic Notes: Patient is a 33 year old female that comes emergency department chief complaint of persistent vomiting since yesterday and occasional loose stools. She states she had a temperature of 101.8 measured by EMS before she came although EMS recorded temperature is 98.9. Patient states she also hurt some in her back. She denies dysuria, vaginal bleeding or discharge. She does report a history of Crohn's disease, denies history of bowel obstructions, denies complications from Crohn's but also states she is supposed to be on Humira and has not followed up with GI again yet. Past medical history also includes partial hysterectomy, anxiety/depression. She smokes marijuana, denies recreational drugs or alcohol. TRAVEL OUTSIDE OF THE [place] IN LAST 30 DAYS: No - Related Data Allergies/Adverse Reactions: ibuprofen [Ibuprofen] Allergy (Severe, Verified 05/06/19 21:18) throat swells, itching blotches Past Medical History - General Information source: Patient - Social History Smoking Status: Current Every Day Smoker Frequency of alcohol use: Occasional Drug Abuse: Marijuana Lives with: Family Family History: Reviewed & Not Pertinent, Arthritis, CAD, COPD, CVA, DM, Hyperlipidemia, Hypertension, Malignancy, Other Patient has suicidal ideation: No Patient has homicidal ideation: No - Past Medical History Cardiac Medical History: Pulmonary Medical History: Denies: Hx Asthma, Hx Bronchitis, Hx COPD, Hx Pneumonia Neurological Medical History: Reports: Hx Seizures. Denies: Hx Cerebrovascular Accident Renal/ Medical History: Reports: Hx Ovarian Cysts. Denies: Hx Peritoneal Dialysis Malignancy Medical History: Reports: Hx Cervical Cancer GI Medical History: Reports: Hx Crohn's Disease, Hx Gastritis, Hx Hiatal Hernia, Hx Irritable Bowel, Hx Colonoscopy, Hx Endoscopy Musculoskeletal Medical History: Reports Hx Arthritis, Reports Hx Fibromyalgia, Reports Hx Musculoskeletal Trauma Psychiatric Medical History: Reports: Hx Anxiety, Hx Bipolar Disorder - anxiety and depression, Hx Depression Traumatic Medical History: Reports: Hx Fractures Past Surgical History: Reports: Hx Breast Surgery - lumpectomy r beast, Hx Hysterectomy, Other - right bartholins gland cyst excision, reports greater than 40 word cath lt. Denies: Hx Pacemaker - Immunizations Immunizations up to date: Yes Hx Diphtheria, Pertussis, Tetanus Vaccination: No - 2007 Review of Systems - Review of Systems Constitutional: No symptoms reported EENT: No symptoms reported Cardiovascular: No symptoms reported Respiratory: No symptoms reported Gastrointestinal: See HPI Genitourinary: No symptoms reported Female Genitourinary: No symptoms reported Musculoskeletal: No symptoms reported Skin: No symptoms reported Hematologic/Lymphatic: No symptoms reported Neurological/Psychological: No symptoms reported Physical Exam - Vital signs Vitals: Temp Pulse Resp BP Pulse Ox 98.1 F 86 20 117/78 100 05/06/19 20:56 05/06/19 20:56 05/06/19 20:56 05/06/19 20:56 05/06/19 20:56 - Notes Notes: GENERAL: Slightly pale and mildly uncomfortable but no severe distress HEAD: Normocephalic, atraumatic. EYES: Pupils equal, round, and reactive to light. Extraocular movements intact. ENT: Oral mucosa very dry, tongue midline. Oropharynx unremarkable. Airway patent. LUNGS: Clear to auscultation bilaterally, no wheezes, rales, or rhonchi. No respiratory distress. HEART: Regular rate and rhythm. No murmur ABDOMEN: There is mild generalized abdominal tenderness, nonspecific, no guarding, no rigidity or distention. Bowel sounds present throughout. GENITOURINARY: Deferred EXTREMITIES: Moves all 4 extremities spontaneously. No edema, normal radial and dorsalis pedis pulses bilaterally. No cyanosis. BACK: no cervical, thoracic, lumbar midline tenderness. No saddle anesthesia, normal distal neurovascular exam. Moves all extremities in full range of motion. NEUROLOGICAL: Alert and oriented x3. Normal speech. Cranial nerves II through XII grossly intact. PSYCH: Normal affect, normal mood. SKIN: slightly pale Course - Re-evaluation Re-evalutation: CBC shows leukocytosis at 19,000 with elevation of neutrophils but no bandemia. Chemistry shows low bicarbonate at 19 but is otherwise unremarkable. Urinalysis shows 80 ketones but is nonspecific otherwise. Patient has had a hysterectomy. Discussed with patient. Because of her pain, vomiting, history of Crohn's without treatment, and leukocytosis we will proceed with CAT scan to rule out complication. Patient given IV fluids, symptom management, on reevaluation she appears to feel much better and states she feels 100% better. Soft benign abdomen with no complaints on reevaluation. Patient is only complaining of heartburn now. After GI cocktail patient was able to tolerate p.o. fluids. On reevaluation she still has no complaints, she is requesting to leave. Discussed treatment of upper gastrointestinal inflammation, discussed follow-up and return precautions with patient and family at bedside. They state understanding and agreement. - Vital Signs Vital signs: Temp Pulse Resp BP Pulse Ox 98.2 F 85 17 103/67 99 05/07/19 04:46 05/07/19 04:46 05/07/19 04:46 05/07/19 04:46 05/07/19 04:46 - Laboratory Result Diagrams: 05/06/19 22:02 05/06/19 22:02 Laboratory results interpreted by me: 05/06/19 05/06/19 05/06/19 21:38 22:02 22:02 WBC 19.8 H Hgb 16.3 H Hct 48.4 H Lymph % (Auto) 10.0 L [place] % (Auto) 2.0 L Absolute Neuts (auto) 17.3 H Seg Neutrophils % 87.7 H Carbon Dioxide 19 L Glucose 128 H Calcium 10.7 H Lipase Urine Protein 100 H Urine Ketones 80 H Urine Bilirubin MODERATE H Urine Urobilinogen 2.0 H 05/06/19 22:02 WBC Hgb Hct Lymph % (Auto) [place] % (Auto) Absolute Neuts (auto) Seg Neutrophils % Carbon Dioxide Glucose Calcium Lipase 15.4 L Urine Protein Urine Ketones Urine Bilirubin Urine Urobilinogen Discharge - Discharge Clinical Impression: Dehydration Abdominal pain Qualifiers: Abdominal location: generalized Qualified Code(s): R10.84 - Generalized abdominal pain Vomiting Qualifiers: Vomiting type: unspecified Vomiting Intractability: non-intractable Nausea presence: with nausea Qualified Code(s): R11.2 - Nausea with vomiting, unspecified Condition: Stable Disposition: HOME, SELF-CARE Additional Instructions: Your symptoms and examination indicate inflammation of your upper gastrointestinal tract. Take Phenergan for nausea, take Carafate and Pepcid as prescribed to help treat this, you can take additional Rolaids, Tums, Maalox, etc. if needed. You can take Tylenol for pain. Avoid NSAIDs, alcohol, smoking, caffeine, spicy food. Start with clear fluids, progress to bland diet. Follow-up with primary care for additional evaluation and treatment of Crohn's disease and generally. Return if you worsen including uncontrolled vomiting, fever, severe worsening abdominal pain, black stools, vomiting blood, or any ot her concerning or worsening symptoms. Prescriptions: Sucralfate [Carafate 1 gm Tablet] 1 gm PO QID #20 tablet Famotidine [Pepcid 20 mg Tablet] 20 mg PO BID #20 tablet Promethazine HCl [Phenergan 25 mg Tablet] 25 mg PO Q6H PRN #20 tablet PRN Reason:
--- NOTE | 2019-05-07 03:04 | RADIOLOGY REPORT (SQ) ---
CLINICAL HISTORY: abd pain, vomiting, leukocytosis COMPARISON: None. TECHNIQUE: CT ABDOMEN PELVIS WITH IV CONTRAST on 05/07/2019 1:29 AM [employer] This exam was performed according to our departmental dose-optimization program, which includes automated exposure control, adjustment of the mA and/or kV according to patient size and/or use of iterative reconstruction technique. FINDINGS: Lower lungs are clear. Abdomen: The liver is normal in appearance. There is no biliary dilatation. The gallbladder is normal in appearance. The pancreas and spleen are normal in appearance. The adrenal glands and kidneys are unremarkable. Abdominal aorta is normal in course and caliber without aneurysm. There is no free air. There is no retroperitoneal adenopathy. Pelvis: There is no bowel obstruction. Urinary bladder is unremarkable. There is no free fluid. Uterus is not clearly seen. Appendix is normal. Skeleton: There are no acute osseous findings. No suspicious bony lesions. IMPRESSION: No acute process.
[2019-05-07] MEDS ORDERED: MAG HYDROX/AL HYDROX/SIMETH SUSP 30 ML UDCUP PO ONE (03:07)
[2019-05-07] MEDS ORDERED: METOCLOPRAMIDE HCL ORAL SOLN 10 MG/10 ML UDCUP PO ONE (03:07)
[2019-05-07] MEDS ORDERED: LIDOCAINE 2% VISCOUS SOLN 20 ML UDCUP PO ONE (03:07)
[2019-05-07] MEDS ORDERED: MORPHINE SULFATE 10 MG/ML INJ IV ONE (03:07)
[2019-05-07 04:47] VITALS: BP 103/67
== END 2019-05-07 04:46 | disposition home or self-care (01) ==
LOC: ER 20:29
DX: R10.84 Generalized abdominal pain (principal); R10.817 Generalized abdominal tenderness; R11.2 Nausea with vomiting, unspecified; R12 Heartburn; R19.4 Change in bowel habit; D72.828 Other elevated white blood cell count; F17.200 Nicotine dependence, unspecified, uncomplicated; F12.10 Cannabis abuse, uncomplicated; Z87.19 Personal history of other diseases of the digestive system; Z90.711 Acquired absence of uterus with remaining cervical stump; Z85.41 Personal history of malignant neoplasm of cervix uteri; Z88.8 Allergy status to other drugs, medicaments and biological substances
CPT/HCPCS: 96376; 99284; 96361; 96374; 96375; 36415; 83690; 85025; 80053; 81001; 74177; J3490; J2765; J2270; J7030

== ENCOUNTER 2019-06-24 14:52 | Emergency (ER) | payer SELFPAY ==
[2019-06-24] MEDS ORDERED: ONDANSETRON 4 MG TAB.RAPDIS PO ONE (15:25)
[2019-06-24] MEDS ORDERED: MAG HYDROX/AL HYDROX/SIMETH SUSP 30 ML UDCUP PO ONE ×2 (15:25→16:45)
[2019-06-24] MEDS ORDERED: LIDOCAINE 2% VISCOUS SOLN 15 ML UDCUP PO ONE (15:25)
[2019-06-24] MEDS ORDERED: MORPHINE SULFATE 10 MG/ML INJ IV ONE ×2 (15:27→18:15)
--- NOTE | 2019-06-24 15:27 | ER Document Report ---
ED Medical Screen (RME) - General Chief Complaint: Vomiting/Diarrhea Stated Complaint: VOMITING,DIARRHEA TRAVEL OUTSIDE OF THE [place] IN LAST 30 DAYS: No - HPI Notes: 06/24/19 15:26 Patient is a 33-year-old female with history of Crohn's disease who presents complaining of epigastric abdominal pain, nausea/backslash diarrhea that began at 4 AM today. Patient states that she has had flareups like this in the past. She is requesting a GI cocktail as well as fluids and medicines. No fever, but has had chills. I have treated and performed a rapid initial assessment of this patient. A comprehensive ED assessment and evaluation of the patient, analysis of test results and completion of medical decision making process will be conducted by additional ED providers. PHYSICAL EXAMINATION: GENERAL: Well-appearing, well-nourished and in no acute distress. A&Ox4. Answers questions appropriately. Abdomen: Limited exam in triage, there is noted tenderness in the epigastrium. - Related Data Allergies/Adverse Reactions: ibuprofen [Ibuprofen] Allergy (Severe, Verified 06/24/19 15:23) throat swells, itching blotches Past Medical History - Past Medical History Cardiac Medical History: Pulmonary Medical History: Denies: Hx Asthma, Hx Bronchitis, Hx COPD, Hx Pneumonia Neurological Medical History: Reports: Hx Seizures. Denies: Hx Cerebrovascular Accident Renal/ Medical History: Reports: Hx Ovarian Cysts. Denies: Hx Peritoneal Dialysis Malignancy Medical History: Reports: Hx Cervical Cancer GI Medical History: Reports: Hx Crohn's Disease, Hx Gastritis, Hx Hiatal Hernia, Hx Irritable Bowel, Hx Ulcerative Colitis, Hx Colonoscopy, Hx Endoscopy Musculoskeltal Medical History: Reports Hx Arthritis, Reports Hx Fibromyalgia, Reports Hx Musculoskeletal Trauma Psychiatric Medical History: Reports: Hx Anxiety, Hx Bipolar Disorder - anxiety and depression, Hx Depression Traumatic Medical History: Reports: Hx Fractures Past Surgical History: Reports: Hx Breast Surgery - lumpectomy r beast, Hx Hysterectomy, Other - right bartholins gland cyst excision, reports greater than 40 word cath lt. Denies: Hx Pacemaker - Immunizations Immunizations up to date: Yes Hx Diphtheria, Pertussis, Tetanus Vaccination: No - 2007 Physical Exam - Vital signs Vitals: Temp Pulse Resp BP Pulse Ox 97.7 F 50 L 18 126/84 H 100 06/24/19 15:08 06/24/19 15:08 06/24/19 15:08 06/24/19 15:08 06/24/19 15:08 Course - Vital Signs Vital signs: Temp Pulse Resp BP Pulse Ox 97.7 F 50 L 18 126/84 H 100 06/24/19 15:08 06/24/19 15:08 06/24/19 15:08 06/24/19 15:08 06/24/19 15:08
[2019-06-24 16:51] LABS: ABSOLUTE BASOPHILS # (AUTO) 0.1 10^3/uL (0.0-0.2); ABSOLUTE LYMPHOCYTES (AUTO) 1.9 10^3/uL (0.5-4.7); ABSOLUTE MONOCYTES (AUTO) 0.4 10^3/uL (0.1-1.4); BASOPHILS % (AUTO) 0.4 % (0-2); EOSINOPHILS % (AUTO) 0.1 % (0-6); HEMATOCRIT 45.6 % (36.0-47.0); HEMOGLOBIN 15.6 g/dL (12.0-15.5); LYMPHOCYTES % (AUTO) 11.4 % (13-45); MEAN CORPUSCULAR HEMOGLOBIN 32.1 pg (27.0-33.4); MEAN CORPUSCULAR HGB CONC 34.2 g/dL (32.0-36.0); MEAN CORPUSCULAR VOLUME 94 fl (80-97); MONOCYTES % (AUTO) 2.2 % (3-13); PLATELET COUNT 300 10^3/uL (150-450); RED BLOOD COUNT 4.84 10^6/uL (3.72-5.28); RED CELL DISTRIBUTION WIDTH 14.6 % (11.5-14.0); SEGMENTED NEUTROPHILS % (AUTO) 85.9 % (42-78); TOTAL CELLS COUNTED % (AUTO) 100 %; WHITE BLOOD COUNT 16.3 10^3/uL (4.0-10.5)
[2019-06-24 17:13] LABS: ALBUMIN 5.2 g/dL (3.5-5.0); ALKALINE PHOSPHATASE 70 U/L (38-126); ANION GAP 16 (5-19); ASPARTATE AMINO TRANSFERASE 25 U/L (14-36); BILIRUBIN,DIRECT 0.4 mg/dL (0.0-0.4); BILIRUBIN,TOTAL 0.8 mg/dL (0.2-1.3); BLOOD UREA NITROGEN 17 mg/dL (7-20); CALCIUM 10.9 mg/dL (8.4-10.2); CARBON DIOXIDE 19 mmol/L (22-30); CHLORIDE 108 mmol/L (98-107); GLUCOSE 144 mg/dL (75-110); POTASSIUM 3.7 mmol/L (3.6-5.0)
[2019-06-24] MEDS: NORMAL SALINE 1000 ML 1,000 ML IV PRN ×2 (17:57→20:18)
[2019-06-24 19:16] LABS: APPEARANCE,URINE SLIGHTLY-CLOUDY; BILIRUBIN,URINE NEGATIVE (NEGATIVE); COLOR,URINE YELLOW; GLUCOSE, URINE NEGATIVE (NEGATIVE); KETONES,URINE 20 mg/dL (NEGATIVE); PROTEIN,URINE 100 mg/dL (NEGATIVE); URINE SPECIFIC GRAVITY 1.029; UROBILINOGEN,URINE NEGATIVE mg/dL (<2.0)
[2019-06-24] MEDS ORDERED: RINGERS SOLUTION,LACTATED 1,000 ML IV ONE (19:24)
[2019-06-24] MEDS ORDERED: METHYLPREDNISOLONE INJ 125 MG/2 ML SDV IV ONE (19:26)
[2019-06-24] MEDS ORDERED: HYDROMORPHONE HCL INJ/PF 2 MG/ML AMPULE IV ONE (19:30)
--- NOTE | 2019-06-24 20:15 | ER Document Report ---
ED General - General Chief Complaint: Nausea/Vomiting/Diarrhea Stated Complaint: VOMITING,DIARRHEA Time Seen by Provider: 06/24/19 19:05 Primary Care Provider: [facility] [Provider Group] - Follow up in 3-5 days (2 to 3 days if not better otherwise in 10 days) TRAVEL OUTSIDE OF THE [place] IN LAST 30 DAYS: No - Related Data Allergies/Adverse Reactions: ibuprofen [Ibuprofen] Allergy (Severe, Verified 06/24/19 15:23) throat swells, itching blotches Past Medical History - Social History Smoking Status: Current Every Day Smoker Chew tobacco use (# tins/day): No Frequency of alcohol use: None Drug Abuse: Marijuana Family History: Reviewed & Not Pertinent, Arthritis, CAD, COPD, CVA, DM, Hyperlipidemia, Hypertension, Malignancy, Other Patient has suicidal ideation: No Patient has homicidal ideation: No - Past Medical History Cardiac Medical History: Pulmonary Medical History: Denies: Hx Asthma, Hx Bronchitis, Hx COPD, Hx Pneumonia Neurological Medical History: Reports: Hx Seizures. Denies: Hx Cerebrovascular Accident Renal/ Medical History: Reports: Hx Ovarian Cysts. Denies: Hx Peritoneal Dialysis Malignancy Medical History: Reports: Hx Cervical Cancer GI Medical History: Reports: Hx Crohn's Disease, Hx Gastritis, Hx Hiatal Hernia, Hx Irritable Bowel, Hx Ulcerative Colitis, Hx Colonoscopy, Hx Endoscopy Musculoskeletal Medical History: Reports Hx Arthritis, Reports Hx Fibromyalgia, Reports Hx Musculoskeletal Trauma Psychiatric Medical History: Reports: Hx Anxiety, Hx Bipolar Disorder - anxiety and depression, Hx Depression Traumatic Medical History: Reports: Hx Fractures Past Surgical History: Reports: Hx Breast Surgery - lumpectomy r beast, Hx Hysterectomy, Other - right bartholins gland cyst excision, reports greater than 40 word cath lt. Denies: Hx Pacemaker - Immunizations Immunizations up to date: Yes Hx Diphtheria, Pertussis, Tetanus Vaccination: No - 2007 Physical Exam - Vital signs Vitals: Temp Pulse Resp BP Pulse Ox 97.7 F 50 L 18 126/84 H 100 06/24/19 15:08 06/24/19 15:08 06/24/19 15:08 06/24/19 15:08 06/24/19 15:08 - Notes Notes: Patient presents emergency department with epigastric is been on for the past 2 to 3 days. Is been associate with nausea vomiting and diarrhea. The diarrhea is watery with no blood or recent antibiotics. She says she is felt warm but has not actually had a fever she does complain of pain in her right breast this been going on for several months. She is noticed a lump there. She says occasionally will cause pain into her right arm. Past medical history is she has a history of Crohn's and ulcerative colitis. Reports that she was on Humira in the past but lost her insurance. Has not been on any medications for her Crohn's for a while last flareup was several months ago he has no diabetes hypertension or heart disease. Social history used to smoke but does not drink Last menstrual period was in 2010 Review of systems pertinent positives and negatives in HPI otherwise all the systems were reviewed and acutely negative PHYSICIAN EXAM -vital signs are noted triage note and note from triage reviewed GENERAL: Well-appearing, well-nourished and in __mild distress from pain____ HEAD: Atraumatic, normocephalic. EYES: Pupils equal round and reactive to light, extraocular movements intact, sclera anicteric, conjunctiva are normal. ENT: nares patent, oropharynx clear without exudates. Slightly dry mucous membranes. NECK: supple without lymphadenopathy LUNGS: Breath sounds clear to auscultation bilaterally and equal. No wheezes rales or rhonchi. HEART: Regular rate and rhythm without murmurs ABDOMEN: Soft, some minimal epigastric and left-sided abdominal pain no pain on the right EXTREMITIES: No deformity, no edema. NEUROLOGICAL: No focal neurological deficits. Moves all extremities spontaneously and on command. PSYCH: Normal mood, normal affect. SKIN: Warm, Dry, normal turgor, no rashes or lesions noted. BACK-nontender in the midline Breast exam was done with present. On the right breast she has a small mobile nontender general that is approximately 4 cm x 2 cm at about 7:00 on the right breast. There is no other masses appreciated no discharge from the nipple no axillary nodes in the left breast has no masses Differential diagnosis viral syndrome exacerbation of Crohn's dehydration Course - Re-evaluation Re-evalutation: 06/24/19 21:48 ED patient is remained stable has serial exams abdominal pain has improved. 2 L of fluid and then maintenance fluid. She has had no just episodes of vomiting he has been tolerating liquids well no relief with the morphine was then given Dilaudid with some improvement of her pain. Told her about her urine no urinary symptoms at all does appear to be contaminated she has had UTIs in the past so we will just culture. Medical decision making patient presents with abdominal pain nausea vomiting feels is related to her Crohn's. White count is slightly elevated which could also be stress related CT is unremarkable and she is feeling better and at this point can be discharged home with follow-up he no evidence of a surgical abdomen her CT is unremarkable previous CTs of been unremarkable also raising the question whether this is truly Crohn's however she reports she has been on Humira in the past At this time there is no indication for admission. I have discussed the findings with patient/family with return precautions and follow-up r ecommendations. Verbal discharge instructions given at the bedside and opportunity for questions given. Medication warnings were given if indicated. Patient is in agreement with this plan and has verbalized understanding of return precautions and the need for primary care follow-up as directed.. 06/24/19 22:02 - Vital Signs Vital signs: Temp Pulse Resp BP Pulse Ox 97.7 F 50 L 18 126/84 H 100 06/24/19 15:08 06/24/19 15:08 06/24/19 15:08 06/24/19 15:08 06/24/19 15:08 - Laboratory Result Diagrams: 06/24/19 16:30 06/24/19 16:30 Laboratory results interpreted by me: 06/24/19 06/24/19 06/24/19 16:30 16:30 18:50 WBC 16.3 H Hgb 15.6 H RDW 14.6 H Lymph % (Auto) 11.4 L [place] % (Auto) 2.2 L Absolute Neuts (auto) 14.0 H Seg Neutrophils % 85.9 H Chloride 108 H Carbon Dioxide 19 L Glucose 144 H Calcium 10.9 H Total Protein 9.0 H Albumin 5.2 H Lipase 16.9 L Urine Protein 100 H Urine Ketones 20 H Leukocyte Esterase Rfl LARGE H - Diagnostic Test Radiology reviewed: Reports reviewed Discharge - Discharge Clinical Impression: Vomiting and diarrhea, Breast mass, right Abdominal pain Qualifiers: Abdominal location: left lower quadrant Qualified Code(s): R10.32 - Left lower quadrant pain Disposition: HOME, SELF-CARE Instructions: Abdominal Pain ([facility]), Antinausea Medication ([facility]), Diarrhea, Nonspecific ([facility]) Additional Instructions: Please review the discharge instructions, they will tell you about your disease/injury and what you need to return to the ED for Return to the ED if you feel worse or can follow-up with your family doctor Stay on clear liquids for 8 hours then a bland diet for 2 to 3 days avoiding fatty greasy foods Follow-up in the care clinic in 2 to 3 days if not better otherwise in 10 days for recheck and then they can schedule you for a mammogram of your breast The pain medications may cause drowsiness. Be careful if you are using crutches. Do not drive or operate machinery. Do not take Tylenol with the pain medication Your blood pressure was elevated today needs to be rechecked again in 1 to 2 weeks to determine if need to be on medication or have your medications adjusted. Untreated hypertension can cause heart attack stroke and kidney failure Prescriptions: Prednisone [Deltasone 20 mg Tablet] 20 mg PO ASDIR PRN #21 tablet PRN Reason: Hydrocodone/Acetaminophen [[place] 5-325 mg Tablet] 1 tab PO Q6 #12 tablet Ondansetron HCl [Zofran 4 mg Tablet] 1 tab PO Q4H PRN #10 tablet PRN Reason: Forms: Elevated Blood Pressure Referrals: [facility] [Provider Group] - Follow up in 3-5 days (2 to 3 days if not better otherwise in 10 days)
--- NOTE | 2019-06-24 21:56 | RADIOLOGY REPORT (SQ) ---
EXAM DESCRIPTION: CT abdomen and pelvis with contrast CLINICAL HISTORY: 33 years Female, Abdominal pain COMPARISON: CT abdomen and pelvis 05/07/2019 TECHNIQUE: Axial images of the abdomen and pelvis were performed utilizing intravenous contrast, with sagittal and coronal reformatted images. This exam was performed according to our departmental dose-optimization program which includes use of Automated Exposure Control, adjustment of the mA and/or kV according to patient size and/or use of iterative reconstruction technique. FINDINGS: The appendix appears normal. I believe there is a fallopian tube coil on the left side of the pelvis, unchanged, as compared with the prior scan. No evidence of bowel obstruction. There is no significant radiographic abnormality of the liver, spleen, pancreas, adrenal glands or kidneys. There are multiple calcified splenic granulomas. No mass or adenopathy. No free air or free fluid. IMPRESSION: No acute finding.
[2019-06-24] MEDS ORDERED: ONDANSETRON ODT 4 MG TAB (6 TAB/ER DISP) PO PRN (22:03)
[2019-06-24] MEDS ORDERED: OXYCODONE-ACETAMINOPHEN 5-325 MG TABLET PO ONE (22:10)
[2019-06-24 22:17] VITALS: BP 109/78
== END 2019-06-24 22:30 | disposition home or self-care (01) ==
LOC: ER 14:52
DX: N63.13 Unspecified lump in the right breast, lower outer quadrant (principal); R11.2 Nausea with vomiting, unspecified; R19.7 Diarrhea, unspecified; M79.601 Pain in right arm; F17.200 Nicotine dependence, unspecified, uncomplicated
CPT/HCPCS: 99284; 96361; 96374; 96375; 36415; 87086; 83690; 85025; 81025; 80053; 81001; 74177; S0119; J3490; J2930; J2270; J1170; J7030; J7120

== ENCOUNTER 2019-07-02 09:11 | Emergency (ER) | payer MEDICAID, OTHER ==
--- NOTE | 2019-07-02 09:28 | ER Document Report ---
ED Medical Screen (RME) - General Chief Complaint: Nausea/Vomiting/Diarrhea Stated Complaint: VOMITING,DIARRHEA,RIGHT FLANK PAIN Time Seen by Provider: 07/02/19 09:26 Mode of Arrival: Ambulatory Information source: Patient Notes: 33-year-old female presents to ED for complaint of nausea vomiting and diarrhea. She states she does have a history of Crohn's disease. She states the last time she came in she got some pain medicine nausea medicine and was discharged but she did not get any IV fluids. She states she feels she really needs some IV fluids. She states she is having some pain up in her right flank up under her ribs. She states that she has noticed some "snotty looking bloody stool "yesterday. States she is never had any stool that looked like this before. She states is been about a year since she saw Dr. 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 She was in the ER on 24 June. I have greeted and performed a rapid initial assessment of this patient. A comprehensive ED assessment and evaluation of the patient, analysis of test results and completion of medical decision making process will be conducted by an additional ED providers. TRAVEL OUTSIDE OF THE [place] IN LAST 30 DAYS: No - Related Data Allergies/Adverse Reactions: ibuprofen [Ibuprofen] Allergy (Severe, Verified 07/02/19 09:21) throat swells, itching blotches Past Medical History - Past Medical History Cardiac Medical History: Pulmonary Medical History: Denies: Hx Asthma, Hx Bronchitis, Hx COPD, Hx Pneumonia Neurological Medical History: Reports: Hx Seizures. Denies: Hx Cerebrovascular Accident Renal/ Medical History: Reports: Hx Ovarian Cysts. Denies: Hx Peritoneal Dialysis Malignancy Medical History: Reports: Hx Cervical Cancer GI Medical History: Reports: Hx Crohn's Disease, Hx Gastritis, Hx Hiatal Hernia, Hx Irritable Bowel, Hx Ulcerative Colitis, Hx Colonoscopy, Hx Endoscopy Musculoskeltal Medical History: Reports Hx Arthritis, Reports Hx Fibromyalgia, Reports Hx Musculoskeletal Trauma Psychiatric Medical History: Reports: Hx Anxiety, Hx Bipolar Disorder - anxiety and depression, Hx Depression Traumatic Medical History: Reports: Hx Fractures Past Surgical History: Reports: Hx Breast Surgery - lumpectomy r beast, Hx Hysterectomy, Other - right bartholins gland cyst excision, reports greater than 40 word cath lt. Denies: Hx Pacemaker - Immunizations Immunizations up to date: Yes Hx Diphtheria, Pertussis, Tetanus Vaccination: No - 2007 Physical Exam - Vital signs Vitals: Temp Pulse Resp BP Pulse Ox 98.2 F 83 18 127/92 H 100 07/02/19 09:16 07/02/19 09:16 07/02/19 09:16 07/02/19 09:16 07/02/19 09:16 Course - Vital Signs Vital signs: Temp Pulse Resp BP Pulse Ox 98.2 F 83 18 127/92 H 100 07/02/19 09:16 07/02/19 09:16 07/02/19 09:16 07/02/19 09:16 07/02/19 09:16
[2019-07-02] MEDS ORDERED: NORMAL SALINE 1000 ML 1,000 ML IV ONE ×2 (09:29→15:37)
[2019-07-02] MEDS ORDERED: ONDANSETRON 4 MG TAB.RAPDIS PO ONE (09:29)
[2019-07-02] MEDS ORDERED: METOCLOPRAMIDE HCL ORAL SOLN 10 MG/10 ML UDCUP PO ONE (09:52)
[2019-07-02] MEDS ORDERED: LIDOCAINE 2% VISCOUS SOLN 15 ML UDCUP PO ONE (09:52)
[2019-07-02] MEDS ORDERED: MAG HYDROX/AL HYDROX/SIMETH SUSP 30 ML UDCUP PO ONE (09:52)
[2019-07-02 10:06] LABS: ABSOLUTE BASOPHILS # (AUTO) 0.1 10^3/uL (0.0-0.2); ABSOLUTE EOSINOPHILS # (AUTO) 0.3 10^3/uL (0.0-0.6); ABSOLUTE LYMPHOCYTES (AUTO) 4.7 10^3/uL (0.5-4.7); ABSOLUTE MONOCYTES (AUTO) 1.1 10^3/uL (0.1-1.4); BASOPHILS % (AUTO) 0.5 % (0-2); EOSINOPHILS % (AUTO) 1.6 % (0-6); HEMATOCRIT 51.4 % (36.0-47.0); HEMOGLOBIN 17.5 g/dL (12.0-15.5); LYMPHOCYTES % (AUTO) 27.5 % (13-45); MEAN CORPUSCULAR HEMOGLOBIN 32.1 pg (27.0-33.4); MEAN CORPUSCULAR HGB CONC 34.1 g/dL (32.0-36.0); MEAN CORPUSCULAR VOLUME 94 fl (80-97); MONOCYTES % (AUTO) 6.4 % (3-13); PLATELET COUNT 281 10^3/uL (150-450); RED BLOOD COUNT 5.45 10^6/uL (3.72-5.28); RED CELL DISTRIBUTION WIDTH 14.6 % (11.5-14.0); TOTAL CELLS COUNTED % (AUTO) 100 %; WHITE BLOOD COUNT 17.2 10^3/uL (4.0-10.5)
[2019-07-02 10:16] LABS: APPEARANCE,URINE CLOUDY; BILIRUBIN,URINE NEGATIVE (NEGATIVE); COLOR,URINE AMBER; GLUCOSE, URINE NEGATIVE (NEGATIVE); KETONES,URINE NEGATIVE (NEGATIVE); PROTEIN,URINE 30 mg/dL (NEGATIVE)
[2019-07-02] MEDS ORDERED: MORPHINE SULFATE 10 MG/ML INJ IV ONE ×3 (10:55→15:38)
--- NOTE | 2019-07-02 11:14 | ER Document Report ---
ED GI/ - General Chief Complaint: Nausea/Vomiting/Diarrhea Stated Complaint: VOMITING,DIARRHEA,RIGHT FLANK PAIN Time Seen by Provider: 07/02/19 09:26 Mode of Arrival: Ambulatory Notes: HPI: 33-year-old female with past medical history of Crohn's disease who presents today with the onset around 2 weeks ago of which she states has been nausea, vomiting, and abdominal pain. Subjective fevers. Minimal dysuria. No obvious blood in the vomit. No obvious blood in the diarrhea. Patient is post be taking a mirror but lost her insurance previously. She has not followed up with the [facility] or the GI doctor. Patient was seen and evaluated here in April as well as on the , 1 week ago. She had a CT scan of the abdomen and pelvis as recorded with an elevated white blood cell count. Given that she has not been on Humira she was placed on steroids which she is still taking. She states that the pain in the above symptoms have continued. She denies any real aggravating relieving factors. She denies any radiation. Patient complains also of around 1 year of some lumps to his right breast. ROS: See HPI All other review of systems reviewed and otherwise negative Reviewed vital signs and nursing note as charted by RN. PHYSICAL EXAM: CONSTITUTIONAL: Alert and oriented and responds appropriately to questions. Well-appearing; well-nourished HEAD: Normocephalic; atraumatic EYES: Sclerae non-icteric and not pale ENT: Normal nose; no rhinorrhea; moist mucous membranes; pharynx without lesions noted NECK: Supple without meningismus; non-tender; no cervical lymphadenopathy, no masses CARD: Regular rate and rhythm; no murmurs; symmetric distal pulses RESP: Normal chest excursion without splinting or tachypnea; breath sounds clear and equal bilaterally; no wheezes, no rhonchi, no rales. With picker box operator present I did perform a right breast examination. Patient does have 2 nonfluctuant nontender lumps to the lateral aspect of the breast. The nipple is inverted. No erythema to the breast or nipple region ABD/GI: Normal bowel sounds; non-distended; soft, mildly tender to palpation of all 4 quadrants of the abdomen with no rebound or guarding BACK: The back appears normal and is non-tender to palpation EXT: Normal ROM in all joints; non-tender to palpation; no edema SKIN: No acute lesions noted NEURO: CN 2-12 intact; 5/5 bilateral upper and lower extremity strength with sensation intact to light touch PSYCH: The patient's mood and manner are appropriate. Grooming and personal hygiene are appropriate. TRAVEL OUTSIDE OF THE [place] IN LAST 30 DAYS: No - Related Data Allergies/Adverse Reactions: ibuprofen [Ibuprofen] Allergy (Severe, Verified 07/02/19 09:21) throat swells, itching blotches Home Medications: [facility]/ Past Medical History - General Information source: Patient - Social History Smoking Status: Current Every Day Smoker Chew tobacco use (# tins/day): No Frequency of alcohol use: Occasional Drug Abuse: Marijuana Family History: Reviewed & Not Pertinent, Arthritis, CAD, COPD, CVA, DM, Hyperlipidemia, Hypertension, Malignancy, Other Patient has suicidal ideation: No Patient has homicidal ideation: No - Past Medical History Cardiac Medical History: Pulmonary Medical History: Denies: Hx Asthma, Hx Bronchitis, Hx COPD, Hx Pneumonia Neurological Medical History: Reports: Hx Seizures. Denies: Hx Cerebrovascular Accident Renal/ Medical History: Reports: Hx Ovarian Cysts. Denies: Hx Peritoneal Dialysis Malignancy Medical History: Reports: Hx Cervical Cancer GI Medical History: Reports: Hx Crohn's Disease, Hx Gastritis, Hx Hiatal Hernia, Hx Irritable Bowel, Hx Ulcerative Colitis, Hx Colonoscopy, Hx Endoscopy Musculoskeletal Medical History: Reports Hx Arthritis, Reports Hx Fibromyalgia, Reports Hx Musculoskeletal Trauma Psychiatric Medical History: Reports: Hx Anxiety, Hx Bipolar Disorder - anxiety and depression, Hx Depression Traumatic Medical History: Reports: Hx Fractures Past Surgical History: Reports: Hx Breast Surgery - lumpectomy r beast, Hx Hysterectomy - 2010, Other - right bartholins gland cyst excision, reports great er than 40 word cath lt. Denies: Hx Pacemaker - Immunizations Immunizations up to date: Yes Hx Diphtheria, Pertussis, Tetanus Vaccination: No - 2007 Physical Exam - Vital signs Vitals: Temp Pulse Resp BP Pulse Ox 98.2 F 83 18 127/92 H 100 07/02/19 09:16 07/02/19 09:16 07/02/19 09:16 07/02/19 09:16 07/02/19 09:16 Course - Re-evaluation Re-evalutation: 07/02/19 11:25 Given the above history and physical, we will obtain basic labs, liver panel and lipase, urine analysis, provide fluids and pain medications, and reassess. I would like to limit the radiation to this patient given the complex history we will most likely proceed with a CT scan to evaluate for the possibility of perforation or other acute intra-abdominal obstructive process. I am also concerned about the patient's breast. Given the inverted nipple that is been present for around 2 months with masses for around 1 year, I am concerned about breast cancer. 07/02/19 13:50 Pain is improved. White blood cell count is recorded. Patient is on steroids. Hemoglobin as recorded. No precipitous change from previous hemoglobin level. Rocephin has been provided. Chemistry and CT are pending. 07/02/19 15:31 X-ray as recorded. CT scan as recorded. Patient states that the pain does feel much improved. She states she does have follow-up with the [facility]. Social work is already talked to the patient to help expedite this. We have provided Rocephin. I am very comfortable providing a course of pain medications as well as a course of antibiotics. 07/02/19 15:38 Patient's pain is improved. No vomiting here. No diarrhea or blood in the stool. Urine culture has been sent. We will start the patient on a course of Keflex and pain medications with strict return precautions and follow-up with the [facility]. - Vital Signs Vital signs: Temp Pulse Resp BP Pulse Ox 98.4 F 60 16 150/98 H 100 07/02/19 15:10 07/02/19 15:10 07/02/19 15:10 07/02/19 15:10 07/02/19 15:10 - Laboratory Result Diagrams: 07/02/19 09:50 07/02/19 12:50 Laboratory results interpreted by me: 07/02/19 07/02/19 07/02/19 09:50 09:50 12:50 WBC 17.2 H RBC 5.45 H Hgb 17.5 H Hct 51.4 H RDW 14.6 H Absolute Neuts (auto) 11.0 H Sodium 135.0 L Urine Protein 30 H Urine Blood SMALL H Urine Urobilinogen 4.0 H Leukocyte Esterase Rfl LARGE H Discharge - Discharge Clinical Impression: Nausea vomiting and diarrhea UTI (urinary tract infection) Qualifiers: Urinary tract infection type: site unspecified Hematuria presence: with hemat uria Qualified Code(s): N39.0 - Urinary tract infection, site not specified Condition: Fair Disposition: HOME, SELF-CARE Additional Instructions: Come back immediately for any increased pain, persistent vomiting, blood in the vomit or diarrhea, fever, or any other acute problems. Please make sure that you follow-up with the [facility] regarding reassessment, urine culture assessment, and further Crohn's treatment and management. Prescriptions: Cephalexin Monohydrate [Keflex 500 mg Capsule] 500 mg PO Q6H 7 Days #21 capsule Oxycodone HCl/Acetaminophen [Percocet 5-325 mg Tablet] 1 tab PO ASDIR PRN #15 tablet PRN Reason: Oxycodone HCl/Acetaminophen [Percocet 5-325 mg Tablet] 1 tab PO ASDIR PRN #15 tablet PRN Reason: Oxycodone HCl/Acetaminophen [Percocet 5-325 mg Tablet] 1 tab PO ASDIR PRN #15 tablet PRN Reason: Ondansetron [Zofran Odt 4 mg Tablet] 1 tab PO Q6H #15 tab.judy
[2019-07-02] MEDS ORDERED: METHYLPREDNISOLONE INJ 125 MG/2 ML SDV IV ONE (11:53)
[2019-07-02] MEDS ORDERED: PROMETHAZINE HCL INJ 25 MG/1 ML VIAL IV ONE (12:25)
[2019-07-02 13:33] LABS: ALBUMIN 3.9 g/dL (3.5-5.0); ALKALINE PHOSPHATASE 45 U/L (38-126); ANION GAP 10 (5-19); ASPARTATE AMINO TRANSFERASE 22 U/L (14-36); BILIRUBIN,TOTAL 0.9 mg/dL (0.2-1.3); BLOOD UREA NITROGEN 13 mg/dL (7-20); CARBON DIOXIDE 22 mmol/L (22-30); CHLORIDE 103 mmol/L (98-107); GLUCOSE 97 mg/dL (75-110); POTASSIUM 3.6 mmol/L (3.6-5.0); TOTAL PROTEIN 6.5 g/dL (6.3-8.2)
[2019-07-02] MEDS ORDERED: CEFTRIAXONE INJ 1000 MG VIAL IV ONE (13:50)
[2019-07-02] MEDS ORDERED: CEFTRIAXONE 1 GM/D5W RTU 1 GM/50 ML RTUPB IV ONE (14:05)
--- NOTE | 2019-07-02 15:05 | RADIOLOGY REPORT (SQ) ---
EXAM DESCRIPTION: CT ABD/PELVIS WITH IV ORAL COMPLETED DATE/TIME: 07/02/2019 2:41 pm REASON FOR STUDY: 33; Right sided pain; Crohn's' history COMPARISON: 03/21/2018 TECHNIQUE: CT scan of the abdomen and pelvis performed using helical scanning technique with dynamic intravenous contrast injection. Oral contrast. Images reviewed with lung, soft tissue, and bone win dows. Reconstructed coronal and sagittal MPR images reviewed. Delayed images for evaluation of the ur inary system also acquired. All images stored on PACS. All CT scanners at this facility use dose modulation, iterative reconstruction, and/or weight based d osing when appropriate to reduce radiation dose to as low as reasonably achievable (ALARA). [facility]: Dose Right [facility]: CareDose [facility]: Dose Right [facility]: Teradose 4D [facility]: [employer] CONTRAST TYPE AND DOSE: contrast/concentration: Isovue 350.00 mg/ml; Total Contrast Delivered: 62.0 ml; Total Saline Delivered: 65.0 ml RENAL FUNCTION: None required. The patient is less than 50 years old. RADIATION DOSE: CT Rad equipment meets quality standard of care and radiation dose reduction techniq ues were employed. CTDIvol: NaN - NaN mGy. DLP: 0 mGy-cm.. LIMITATIONS: None. FINDINGS: LOWER CHEST: No significant findings. No nodules or infiltrates. LIVER: Normal size. No masses. No dilated ducts. SPLEEN: Normal size. No focal lesions. PANCREAS: No masses. No significant calcifications. No adjacent inflammation or peripancreatic fluid collections. Pancreatic duct not dilated. GALLBLADDER: No identified stones by CT criteria. No inflammatory changes to suggest cholecystitis. ADRENAL GLANDS: No significant masses or asymmetry. RIGHT KIDNEY AND URETER: No solid masses. No significant calcifications. No hydronephrosis or hyd roureter. LEFT KIDNEY AND URETER: No solid masses. No significant calcifications. No hydronephrosis or hydr oureter. AORTA AND VESSELS: No aneurysm. No dissection. Renal arteries, SMA, celiac without stenosis. RETROPERITONEUM: No retroperitoneal adenopathy, hemorrhage or masses. BOWEL AND PERITONEAL CAVITY: There is considerable stool in the rectosigmoid. No obvious bowel mass. No obvious inflammatory changes in the bowel wall. APPENDIX: Not identified. PELVIS: No mass. No free fluid. Normal bladder. ABDOMINAL WALL: No masses. No hernias. BONES: No significant or acute findings. OTHER: No other significant finding. IMPRESSION: Possible constipation. No other significant or acute findings in the abdomen or pelvis. TECHNICAL DOCUMENTATION: JOB ID: [id number] Quality ID # [id number]: Final reports with documentation of one or more dose reduction techniques (e.g., Au tomated exposure control, adjustment of the mA and/or kV according to patient size, use of iterative reconstruction technique) 2010 [employer]- All Rights Reserved Reading location - IP/workstation name: [email or web address]
--- NOTE | 2019-07-02 15:27 | RADIOLOGY REPORT (SQ) ---
EXAM DESCRIPTION: CHEST 2 VIEWS COMPLETED DATE/TIME: 07/02/2019 3:01 pm REASON FOR STUDY: 33; Right lower rib pain COMPARISON: 11/12/2018. EXAM PARAMETERS: NUMBER OF VIEWS: two views TECHNIQUE: Digital Frontal and Lateral radiographic views of the chest acquired. RADIATION DOSE: NA LIMITATIONS: none FINDINGS: LUNGS AND PLEURA: No opacities, masses or pneumothorax. No pleural effusion. MEDIASTINUM AND HILAR STRUCTURES: No masses or contour abnormalities. HEART AND VASCULAR STRUCTURES: Heart normal size. No evidence for failure. BONES: No acute findings. HARDWARE: None in the chest. OTHER: No other significant finding. IMPRESSION: NO ACUTE RADIOGRAPHIC FINDING IN THE CHEST. TECHNICAL DOCUMENTATION: JOB ID: [id number] [employer]- All Rights Reserved Reading location - IP/workstation name: [email or web address]
[2019-07-02 17:03] VITALS: BP 148/85
== END 2019-07-02 17:06 | disposition home or self-care (01) ==
LOC: ER 09:11
DX: N39.0 Urinary tract infection, site not specified (principal); R11.2 Nausea with vomiting, unspecified; R19.7 Diarrhea, unspecified; R10.31 Right lower quadrant pain; R10.32 Left lower quadrant pain; R10.11 Right upper quadrant pain; R10.12 Left upper quadrant pain; N63.13 Unspecified lump in the right breast, lower outer quadrant; R50.9 Fever, unspecified; R30.0 Dysuria; F17.200 Nicotine dependence, unspecified, uncomplicated
CPT/HCPCS: 96376; 99284; 96361; 96375; 96365; 36415; 84702; 85025; 80053; 81001; 71046; 74177; S0119; J3490 ×3; J2930; J2270; J2550; J0696; J7030

== ENCOUNTER 2019-07-28 10:59 | Emergency (ER) | payer MEDICAID, OTHER ==
[2019-07-28] MEDS ORDERED: HYDROCODONE/ACETAMINOPHEN 5-325 MG TABLET PO ONE (11:26)
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
[2019-07-28] MEDS ORDERED: SILVER SULFADIAZINE 1% CREAM 25 GM TP ONE (12:54)
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
[2019-07-28] MEDS ORDERED: DIPH/PERTUSS(ACELL)/TETANUS VAC/PF 0.5 ML SYR (>=10YO) IM ONE (13:05)
[2019-07-28 13:35] VITALS: BP 124/90
== END 2019-07-28 13:37 | disposition home or self-care (01) ==
LOC: ER 10:59
DX: T23.252A Burn of second degree of left palm, initial encounter (principal); X03.3XXA Fall due to controlled fire, not in building or structure, initial encounter; Z88.8 Allergy status to other drugs, medicaments and biological substances
CPT/HCPCS: 99283; 90471; 90715; J3490

== ENCOUNTER 2019-07-29 18:08 | Emergency (ER) | payer MEDICAID, OTHER ==
[2019-07-29] MEDS ORDERED: ONDANSETRON HCL INJ/PF 4 MG/2 ML SDV IV ONE ×2 (18:33→21:56)
[2019-07-29] MEDS ORDERED: MORPHINE SULFATE 10 MG/ML INJ IV ONE ×2 (18:33→20:45)
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
[2019-07-29] MEDS ORDERED: RINGERS SOLUTION,LACTATED 1,000 ML IV ONE (20:44)
[2019-07-29 21:48] LABS: ABSOLUTE BASOPHILS # (AUTO) 0.1 10^3/uL (0.0-0.2); ABSOLUTE EOSINOPHILS # (AUTO) 0.3 10^3/uL (0.0-0.6); ABSOLUTE LYMPHOCYTES (AUTO) 4.4 10^3/uL (0.5-4.7); ABSOLUTE MONOCYTES (AUTO) 0.8 10^3/uL (0.1-1.4); ABSOLUTE NEUT (AUTO) 7.2 10^3/uL (1.7-8.2); BASOPHILS % (AUTO) 1.1 % (0-2); EOSINOPHILS % (AUTO) 2.5 % (0-6); HEMATOCRIT 38.1 % (36.0-47.0); HEMOGLOBIN 13.1 g/dL (12.0-15.5); LYMPHOCYTES % (AUTO) 34.2 % (13-45); MEAN CORPUSCULAR HEMOGLOBIN 32.5 pg (27.0-33.4); MEAN CORPUSCULAR HGB CONC 34.3 g/dL (32.0-36.0); MEAN CORPUSCULAR VOLUME 95 fl (80-97); MONOCYTES % (AUTO) 6.1 % (3-13); PLATELET COUNT 246 10^3/uL (150-450); RED BLOOD COUNT 4.03 10^6/uL (3.72-5.28); SEGMENTED NEUTROPHILS % (AUTO) 56.1 % (42-78); TOTAL CELLS COUNTED % (AUTO) 100 %; WHITE BLOOD COUNT 12.8 10^3/uL (4.0-10.5)
[2019-07-29 22:06] LABS: ALBUMIN 3.9 g/dL (3.5-5.0); ALKALINE PHOSPHATASE 62 U/L (38-126); ANION GAP 8 (5-19); ASPARTATE AMINO TRANSFERASE 25 U/L (14-36); BLOOD UREA NITROGEN 12 mg/dL (7-20); CALCIUM 9.4 mg/dL (8.4-10.2); CARBON DIOXIDE 26 mmol/L (22-30); CHLORIDE 102 mmol/L (98-107); GLUCOSE 83 mg/dL (75-110); POTASSIUM 3.7 mmol/L (3.6-5.0); TOTAL PROTEIN 6.7 g/dL (6.3-8.2)
[2019-07-29] MEDS ORDERED: HYDROMORPHONE HCL INJ/PF 2 MG/ML AMPULE IV ONE (22:49)
[2019-07-29] MEDS ORDERED: LIDOCAINE 1% INJ (10 MG/ML) 10 ML MDV INJ ONE (22:49)
[2019-07-29] MEDS ORDERED: OXYCODONE-ACETAMINOPHEN 5-325 MG TABLET PO ONE (23:28)
[2019-07-29] MEDS ORDERED: CEPHALEXIN 500 MG CAPSULE PO ONE (23:30)
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
[2019-07-30 00:13] VITALS: BP 130/78
== END 2019-07-30 00:13 | disposition home or self-care (01) ==
LOC: ER 18:08
DX: T23.252A Burn of second degree of left palm, initial encounter (principal); T23.262A Burn of second degree of back of left hand, initial encounter; T23.242A Burn of second degree of multiple left fingers (nail), including thumb, initial encounter; M79.89 Other specified soft tissue disorders; X03.3XXD Fall due to controlled fire, not in building or structure, subsequent encounter; Z88.8 Allergy status to other drugs, medicaments and biological substances; Z79.899 Other long term (current) drug therapy; F17.210 Nicotine dependence, cigarettes, uncomplicated
CPT/HCPCS: 36415; 85025; 80053; J2270; J1170; J2405; J7120; 96361; 96374; 96375; 96376; 99283

== ENCOUNTER → 2019-08-20 | Outpatient (CLI) | payer MEDICAID ==
--- NOTE | 2019-08-20 17:30 | WOMENS IMAGING REPORT ---
EXAM DESCRIPTION: BILAT DIAGNOSTIC MAMMO W/CAD; U/S BREAST UNILATERAL, COMPL COMPLETED DATE/TIME: 08/20/2019 12:29 pm; 08/20/2019 12:54 pm REASON FOR STUDY: N63.10 UNSPECIFIED LUMP IN THE RIGHT BREAST, UNSPECIFIED QUADRANT; N63.10 RIGHT BR EAST N63.10 UNSPECIFIED LUMP IN THE RIGHT BREAST, UNSPECIFIED MESHA COMPARISON: None. EXAM PARAMETERS: Standard craniocaudal and mediolateral oblique views of each breast recorded using digital acquisition. Additional right breast 90 mediolateral view and cone compression right breast CC and MLO orientatio ns. Right breast ultrasound was also performed. Read with the assistance of CAD: .FORMERLY [facility] - [employer] Version 9.2 LIMITATIONS: None. FINDINGS: RIGHT BREAST MASSES: Low-density well-circumscribed mammographic masses are present in the upper outer quadrant an d lower inner quadrant. These were subsequently shown at ultrasound to represent fibroadenomas. CALCIFICATIONS: No new or suspicious calcifications. ARCHITECTURAL DISTORTION: None. ASYMMETRY: None noted. OTHER: No other significant findings. LEFT BREAST MASSES: No suspicious masses. CALCIFICATIONS: No new or suspicious calcifications. ARCHITECTURAL DISTORTION: None. ASYMMETRY: None noted. OTHER: No other significant finding. Right breast ultrasound: Patient indicates a palpable abnormality right breast 4 to 5 o'clock position about 5 cm from the nip ple. Ultrasound of this area demonstrates a 1.9 x 1.8 x 0.8 cm well-circumscribed hypoechoic solid n odule with minimal internal color flow and good acoustic through transmission, likely a benign fibroa denoma. Patient indicates a palpable abnormality in the right breast 7 to 8 o'clock position about 5 cm from the nipple. Ultrasound of this area demonstrates a 2.4 x 2.2 x 1 cm well-circumscribed hypoechoic so lid nodule with minimal internal color flow and good acoustic through transmission, likely a benign f ibroadenoma. Multiple breast cysts were also identified in the upper outer quadrant, with a 10 mm cyst at 10 o'ronny ck position, 12 mm cyst at the 12 o'clock position, and 8 mm cyst at the 1 o'clock position. IMPRESSION: No mammographic/ sonographic evidence for malignancy right breast. No mammographic evidence for malignancy left breast BREAST DENSITY: d. The breasts are extremely dense, which lowers the sensitivity of mammography. BIRAD: ASSESSMENT: 2 Benign findings. RECOMMENDATION: RECOMMENDED FOLLOW UP: Patient should undergo a breast cancer risk assessment. If h er risk assessment indicates an increased lifetime risk of breast cancer, continue yearly bilateral s creening mammography/ tomosynthesis. Otherwise, please begin screening at age 40 SPECIFIC INTERVENTION/IMAGING/CONSULTATION RECOMMENDED:No additional intervention/ imaging/consultati on needed at this time. COMMUNICATION:The negative/benign results were communicated to the patient. COMMENT: The patient has been notified of the results by letter per SA requirements. Additional no tification policies are in place for contacting patient with suspicious or incomplete findings. Quality ID #[id number]: The [employer] recommends an annual screening mammogram for women aged 40 years or over. This facility utilizes a reminder system to ensure that all patients receive reminder letters, and/or direct phone calls for appointments. This includes reminders for routine scr eening mammograms, diagnostic mammograms, or other Breast Imaging Interventions when appropriate. Th is patient will be placed in the appropriate reminder system. TECHNICAL DOCUMENTATION: FINDING NUMBER: (1) ASSESSMENT: (1) JOB ID: [id number] 2010 [employer]- All Rights Reserved Reading location - IP/workstation name: [email or web address]
== END ==
LOC: WI 11:40
PROVIDERS: ATTEND Nurse Practitioner Family
DX: N60.01 Solitary cyst of right breast (principal)
CPT/HCPCS: 76641; 77066

== ENCOUNTER 2019-12-12 07:01 | Day surgery (SDC) | payer MEDICAID ==
[2019-12-12] MEDS ORDERED: ONABOTULINUMTOXINA INJ/PF 100 UNIT SDV IM PRN (07:23)
[2019-12-12] MEDS ORDERED: PROPOFOL INJ 200 MG/20 ML VIAL IV ONE (07:41)
--- NOTE | 2019-12-12 09:13 | Operative Report ---
Operative Report DATE OF SURGERY: 12/12/19 Operative Report: The risk, benefits and alternatives of the procedure including the risk of bleeding, perforation requiring surgery have been explained to the patient in detail and informed consent has been obtained. Patient is taken back to the endoscopy suite and placed in a left, lateral decubital position. Timeout was called. Propofol medication is administered. A rectal examination is done which did not reveal any masses, tears or fissures. An Olympus videoscope was introduced into the patient's rectum and carefully advanced all the way to the cecum. The cecum is identified by the usual anatomical landmarks of the ileocecal valve as well as the appendiceal office. Photodocumentation is obtained and intubation of the terminal ileum is performed. The scope was then sequentially withdrawn via the various segments of the colon including the ascending colon, hepatic flexure, transverse colon, splenic flexure, descending colon finding to the rectosigmoid portions of the colon. Retroflexion maneuver is performed. The risks benefits and alternatives of the procedure explained to the patient in detail and informed consent is obtained.A GIF Olympus video scope was inserted into the patient's mouth and hypopharynx, the esophagus is identified intubated and insufflated ,the scope was then advanced through the esophagus stomach and duodenum, retroflexion maneuver is done, the esophagus stomach and first and second portions of the duodenum examined PREOPERATIVE DIAGNOSIS: Nausea vomiting, gastroparesis. Questionable colitis POSTOPERATIVE DIAGNOSIS: Residual food in stomach status post submucosal i njection of 100 units of Botox. Gastritis status post biopsy. Right side colon biopsy to rule out microscopic colitis OPERATION: Colonoscopy with biopsy. EGD with submucosal injection. EGD with biopsy SURGEON: PARIS JC ANESTHESIA: LMAC TISSUE REMOVED OR ALTERED: As noted above. COMPLICATIONS: None. ESTIMATED BLOOD LOSS: None. INTRAOPERATIVE FINDINGS: As noted above. PROCEDURE: Patient tolerated the procedure well. No immediate postprocedure complications are noted. Patient is discharged in good condition. Discharge date 12/12/2019. Discharge diet: Regular. Discharge activity: Regular. 2 to 3-week follow-up to discuss findings. Patient is instructed to call the office or proceed to the emergency room should there be any further problems or questions. Wait on the pathology.
[2019-12-12 09:45] VITALS: BP 118/70
== END 2019-12-12 10:24 | disposition home or self-care (01) ==
LOC: END 07:01
PROVIDERS: ATTEND Internal Medicine Gastroenterology
DX: K29.70 Gastritis, unspecified, without bleeding (principal); B96.81 Helicobacter pylori [H. pylori] as the cause of diseases classified elsewhere; T18.2XXA Foreign body in stomach, initial encounter; X58.XXXA Exposure to other specified factors, initial encounter; K31.84 Gastroparesis; K52.9 Noninfective gastroenteritis and colitis, unspecified; F17.210 Nicotine dependence, cigarettes, uncomplicated
CPT/HCPCS: 43239; 45380; 87635; 88342 ×2; 88305 ×2; 00813; J2704; J0585; C9803; 813

== ENCOUNTER → 2019-12-23 | Outpatient (CLI) | payer MEDICAID ==
[2019-12-23 08:59] LABS: HEMATOCRIT 40.7 % (36.0-47.0); MEAN CORPUSCULAR HEMOGLOBIN 31.8 pg (27.0-33.4); MEAN CORPUSCULAR HGB CONC 34.5 g/dL (32.0-36.0); MEAN CORPUSCULAR VOLUME 92 fl (80-97); PLATELET COUNT 273 10^3/uL (150-450); RED BLOOD COUNT 4.42 10^6/uL (3.72-5.28); RED CELL DISTRIBUTION WIDTH 13.3 % (11.5-14.0); WHITE BLOOD COUNT 10.1 10^3/uL (4.0-10.5)
[2019-12-23 09:18] LABS: ALKALINE PHOSPHATASE 64 U/L (38-126); ANION GAP 6 (5-19); ASPARTATE AMINO TRANSFERASE 28 U/L (14-36); BILIRUBIN,TOTAL 0.5 mg/dL (0.2-1.3); BLOOD UREA NITROGEN 10 mg/dL (7-20); CALCIUM 9.8 mg/dL (8.4-10.2); CARBON DIOXIDE 30 mmol/L (22-30); CHLORIDE 102 mmol/L (98-107); CHOLESTEROL 172.72 mg/dL (0-200); GLUCOSE 90 mg/dL (75-110); POTASSIUM 4.1 mmol/L (3.6-5.0); TOTAL PROTEIN 7.1 g/dL (6.3-8.2); TRIGLYCERIDES 75 mg/dL (<150)
[2019-12-23 09:29] LABS: DIRECT LDL 109 mg/dL (<100)
== END ==
LOC: OD 08:07
PROVIDERS: ATTEND Physician Assistant
DX: F41.9 Anxiety disorder, unspecified (principal); R00.0 Tachycardia, unspecified; Z13.220 Encounter for screening for lipoid disorders; Z79.899 Other long term (current) drug therapy
CPT/HCPCS: 36415; 80048; 80061; 80076; 83735; 84443; 85027

== ENCOUNTER → 2020-02-11 | Outpatient (CLI) | payer MEDICAID ==
--- NOTE | 2020-02-11 10:09 | RADIOLOGY REPORT (SQ) ---
EXAM DESCRIPTION: LUMBAR SPINE COMPLETE IMAGES COMPLETED DATE/TIME: 02/11/2020 9:57 am REASON FOR STUDY: RADICULOPATHY, LUMBAR REGION M54.16 RADICULOPATHY, LUMBAR REGION COMPARISON: 04/18/2008. NUMBER OF VIEWS: Five views including obliques. TECHNIQUE: AP, lateral, oblique, and sacral radiographic images acquired of the lumbar spine. LIMITATIONS: None. FINDINGS: MINERALIZATION: Normal. SEGMENTATION: Normal. No transitional anatomy. ALIGNMENT: Normal. VERTEBRAE: Maintained height. No fracture or worrisome bone lesion. DISCS: Preserved height. No significant osteophytes or end plate irregularity. POSTERIOR ELEMENTS: Pedicles and facets are intact. No pars defect or posterior arch defects. HARDWARE: None in the spine. PARASPINAL SOFT TISSUES: Normal. PELVIS: Intact as visualized. No fractures or worrisome bone lesions. SI joints intact. OTHER: No other significant finding. IMPRESSION: NORMAL 5 VIEW LUMBAR SPINE. TECHNICAL DOCUMENTATION: JOB ID: [id number] 2010 [employer]- All Rights Reserved Reading location - IP/workstation name: [email or web address]
== END ==
LOC: OD 09:22
PROVIDERS: ATTEND Family Medicine
DX: M54.16 Radiculopathy, lumbar region (principal)
CPT/HCPCS: 72110

== ENCOUNTER → 2020-02-11 | Outpatient (CLI) | payer MEDICAID | LOC: OD 09:16 | PROVIDERS: ATTEND Physician Assistant | DX: R10.9 Unspecified abdominal pain (principal); R00.0 Tachycardia, unspecified; E83.42 Hypomagnesemia; Z86.19 Personal history of other infectious and parasitic diseases | CPT/HCPCS: 86677 ==